=== PATIENT | female | born 1940 | race Caucasian/White ===

== ENCOUNTER 2019-06-11 14:29 | Inpatient (IN) | payer BC, OTHER ==
[~2019-06-11] VITALS: Ht 152.4 cm; Wt 567.0 kg
[2019-06-11 15:19] LABS: BASO # 0.1 x10^3/uL (0.0-0.2); BASO % 1 % (0-3); EOS # 0.1 x10^3/uL (0.0-0.7); EOS % 2 % (0-3); HEMATOCRIT 42.1 % (36.0-47.0); HEMOGLOBIN 13.8 g/dL (12.0-15.5); LYMPH # 1.3 x10^3/uL (1.0-4.8); LYMPH % 17 % (24-48); MEAN CORPUSCULAR HEMOGLOBIN 28 pg (25-35); MEAN CORPUSCULAR HGB CONC 33 g/dL (31-37); MEAN CORPUSCULAR VOLUME 87 fL (79-100); MONO # 0.7 x10^3/uL (0.0-1.1); MONO % 9 % (0-9); NEUT # 5.3 x10^3uL (1.8-7.7); NEUT % 71 % (31-73); PLATELET COUNT 204 x10^3/uL (140-400); RED BLOOD COUNT 4.86 x10^6/uL (3.50-5.40); RED CELL DISTRIBUTION WIDTH 14.8 % (11.5-14.5); WHITE BLOOD COUNT 7.4 x10^3/uL (4.0-11.0)
[2019-06-11 15:20] LABS: CALCIUM 9.4 mg/dL (8.5-10.1); GFR 53.5; POTASSIUM 4.4 mmol/L (3.5-5.1)
[2019-06-11 15:26] LABS: ALBUMIN 3.8 g/dL (3.4-5.0); ALBUMIN/GLOBULIN RATIO 1.1 (1.0-1.7); TOTAL BILIRUBIN 0.7 mg/dL (0.2-1.0); TOTAL PROTEIN 7.2 g/dL (6.4-8.2)
--- NOTE | 2019-06-11 16:39 | PHYS DOC ---
Past History Past Medical History: Anxiety, CVA, Dementia, Depression Past Surgical History: No Surgical History Alcohol Use: None Drug Use: None Adult General Chief Complaint Chief Complaint: PSYCH EVALUATION HPI HPI 78-year-old female presents to behavioral health admission. She was brought here by EMS from her assisted living facility. They did not discuss admission with her behavior health department. She has been having increased anxiety, restlessness, depression, suicidal thoughts. This is gone on for the last couple of months, but is much worse the last several days. Family is very concerned that her medications need adjusting. Patient denies any medical complaints to me. Review of Systems Review of Systems Constitutional: Denies fever or chills [] Eyes: Denies change in visual acuity, redness, or eye pain [] HENT: Denies nasal congestion or sore throat [] Respiratory: Denies cough or shortness of breath [] Cardiovascular: No additional information not addressed in HPI [] GI: Denies abdominal pain, nausea, vomiting, bloody stools or diarrhea [] : Denies dysuria or hematuria [] Musculoskeletal: Denies back pain or joint pain [] Integument: Denies rash or skin lesions [] Neurologic: Denies headache, focal weakness or sensory changes [] Endocrine: Denies polyuria or polydipsia [] All other systems were reviewed and found to be within normal limits, except as documented in this note. Allergies Allergies Allergies Coded Allergies Type Severity Reaction Last Updated Verified No Known Drug Allergies 06/11/19 No Physical Exam Physical Exam Constitutional: Well developed, well nourished, no acute distress, non-toxic appearance. [] HENT: Normocephalic, atraumatic, bilateral external ears normal, oropharynx moist, no oral exudates, nose normal. [] Eyes: PERRLA, EOMI, conjunctiva normal, no discharge. [] Neck: Normal range of motion, no tenderness, supple, no stridor. [] Cardiovascular:Heart rate regular rhythm, no murmur [] Lungs & Thorax: Bilateral breath sounds clear to auscultation [] Abdomen: Bowel sounds normal, soft, no tenderness, no masses, no pulsatile masses. [] Skin: Warm, dry, no erythema, no rash. [] Back: No tenderness, no CVA tenderness. [] Extremities: No tenderness, no cyanosis, no clubbing, ROM intact, no edema. [] Neurologic: Alert and oriented X 3, normal motor function, normal sensory function, no focal deficits noted. [] Psychologic: Affect depressed, judgement normal, mood anxious. [] Current Patient Data Vital Signs Vital Signs Date Time Temp Pulse Resp B/P (MAP) Pulse Ox O2 Delivery O2 Flow Rate FiO2 06/11/19 14:58 98.3 87 16 95 Room Air 06/11/19 14:48 150/97 (114) Lab Results Laboratory Tests Test 06/11/19 14:56 White Blood Count 7.4 x10^3/uL (4.0-11.0) Red Blood Count 4.86 x10^6/uL (3.50-5.40) Hemoglobin 13.8 g/dL (12.0-15.5) Hematocrit 42.1 % (36.0-47.0) Mean Corpuscular Volume 87 fL (79-100) Mean Corpuscular Hemoglobin 28 pg (25-35) Mean Corpuscular Hemoglobin Concent 33 g/dL (31-37) Red Cell Distribution Width 14.8 % (11.5-14.5) H Platelet Count 204 x10^3/uL (140-400) Neutrophils (%) (Auto) 71 % (31-73) Lymphocytes (%) (Auto) 17 % (24-48) L Monocytes (%) (Auto) 9 % (0-9) Eosinophils (%) (Auto) 2 % (0-3) Basophils (%) (Auto) 1 % (0-3) Neutrophils # (Auto) 5.3 x10^3uL (1.8-7.7) Lymphocytes # (Auto) 1.3 x10^3/uL (1.0-4.8) Monocytes # (Auto) 0.7 x10^3/uL (0.0-1.1) Eosinophils # (Auto) 0.1 x10^3/uL (0.0-0.7) Basophils # (Auto) 0.1 x10^3/uL (0.0-0.2) Sodium Level 142 mmol/L (136-145) Potassium Level 4.4 mmol/L (3.5-5.1) Chloride Level 106 mmol/L (98-107) Carbon Dioxide Level 28 mmol/L (21-32) Anion Gap 8 (6-14) Blood Urea Nitrogen 15 mg/dL (7-20) Creatinine 1.0 mg/dL (0.6-1.0) Estimated GFR (Cockcroft-Gault) 53.5 BUN/Creatinine Ratio 15 (6-20) Glucose Level 87 mg/dL (70-99) Calcium Level 9.4 mg/dL (8.5-10.1) Magnesium Level 2.0 mg/dL (1.8-2.4) Total Bilirubin 0.7 mg/dL (0.2-1.0) Aspartate Amino Transferase (AST) 16 U/L (15-37) Alanine Aminotransferase (ALT) 18 U/L (14-59) Alkaline Phosphatase 98 U/L (46-116) Total Protein 7.2 g/dL (6.4-8.2) Albumin 3.8 g/dL (3.4-5.0) Albumin/Globulin Ratio 1.1 (1.0-1.7) EKG EKG [] Radiology/Procedures Radiology/Procedures [] Course & Med Decision Making Course & Med Decision Making Pertinent Labs and Imaging studies reviewed. (See chart for details) The patient is medically stable for behavioral health admission. It took some time to ascertain whether or not the patient could stay at this facility due to insurance. Family seems content with this solution presented by the administrative staff. She will be admitted to our behavioral health floor. [] Dragon Disclaimer Dragon Disclaimer This electronic medical record was generated, in whole or in part, using a voice recognition dictation system. Departure Departure: Impression: Primary Impression: Medical clearance for psychiatric admission Additional Impression: Suicidal ideation Disposition: ADMITTED INPATIENT Condition: STABLE Referrals: EL MARKS (PCP) Problem Qualifiers ARMIDA CARL DO Jun 11, 2019 16:39
[2019-06-11] MEDS ORDERED: LORazepam 1 MG TABLET PO ONE (17:30)
--- NOTE | 2019-06-11 20:00 | NUR ---
Admission Note with Justification for Admission to [facility] Patient admitted to [facility] for protective oversight for emergency stabilization of acute psychiatric crisis. Pt admitted from: Hospital ER Mode of arrival: EMS Accompanied By: EMS Precipitating behaviors that initiated intake and admission: Pt attempted to throw herself down a flight of stairs. Previously attempted to jump from moving car on 05/29/19. Screaming for help, labile, impulsive, tearful, anxiety. Description of failure of out patient attempts at stabilization in previous setting list behavior and medication trials: 1:1 Behaviors and assessment findings upon admission: Pt was A&OX4, pleasant and fully cooperative, denies SI at this time but admits to today's episode, denies prev SI attempt. Plan: Admit for protective oversight for adjustment and stabilization of medications, behaviors and mood. Intense treatment regimen including groups, medication adjustments, therapy, consistent regimen for ADL's, self care, and sleep hygiene. Daily monitoring by Inpatient staff, Psychiatry, and Medical Physician.
[2019-06-11 20:31] VITALS: BP 146/83
--- NOTE | 2019-06-11 21:00 | PDOC ---
Exam Note: Zelalem Note: Please also refer to the separate dictated note~for this date of service dictated separately. Discussed the patient with Nursing staff reviewed the chart.~Reviewed interim history and current functioning. Reviewed vital signs,~Labs/ Radiology~and current medications noted below. Continue current treatment with the changes noted in the dictated addendum note Assessment: Vital Signs/I&O: Vital Signs Date Time Temp Pulse Resp B/P (MAP) Pulse Ox O2 Delivery O2 Flow Rate FiO2 06/11/19 20:31 97.8 83 20 146/83 (104) 97 06/11/19 19:46 Room Air Labs: Laboratory Tests Test 06/11/19 14:56 White Blood Count 7.4 x10^3/uL (4.0-11.0) Red Blood Count 4.86 x10^6/uL (3.50-5.40) Hemoglobin 13.8 g/dL (12.0-15.5) Hematocrit 42.1 % (36.0-47.0) Mean Corpuscular Volume 87 fL (79-100) Mean Corpuscular Hemoglobin 28 pg (25-35) Mean Corpuscular Hemoglobin Concent 33 g/dL (31-37) Red Cell Distribution Width 14.8 % (11.5-14.5) H Platelet Count 204 x10^3/uL (140-400) Neutrophils (%) (Auto) 71 % (31-73) Lymphocytes (%) (Auto) 17 % (24-48) L Monocytes (%) (Auto) 9 % (0-9) Eosinophils (%) (Auto) 2 % (0-3) Basophils (%) (Auto) 1 % (0-3) Neutrophils # (Auto) 5.3 x10^3uL (1.8-7.7) Lymphocytes # (Auto) 1.3 x10^3/uL (1.0-4.8) Monocytes # (Auto) 0.7 x10^3/uL (0.0-1.1) Eosinophils # (Auto) 0.1 x10^3/uL (0.0-0.7) Basophils # (Auto) 0.1 x10^3/uL (0.0-0.2) Sodium Level 142 mmol/L (136-145) Potassium Level 4.4 mmol/L (3.5-5.1) Chloride Level 106 mmol/L (98-107) Carbon Dioxide Level 28 mmol/L (21-32) Anion Gap 8 (6-14) Blood Urea Nitrogen 15 mg/dL (7-20) Creatinine 1.0 mg/dL (0.6-1.0) Estimated GFR (Cockcroft-Gault) 53.5 BUN/Creatinine Ratio 15 (6-20) Glucose Level 87 mg/dL (70-99) Calcium Level 9.4 mg/dL (8.5-10.1) Magnesium Level 2.0 mg/dL (1.8-2.4) Total Bilirubin 0.7 mg/dL (0.2-1.0) Aspartate Amino Transferase (AST) 16 U/L (15-37) Alanine Aminotransferase (ALT) 18 U/L (14-59) Alkaline Phosphatase 98 U/L (46-116) Total Protein 7.2 g/dL (6.4-8.2) Albumin 3.8 g/dL (3.4-5.0) Albumin/Globulin Ratio 1.1 (1.0-1.7) Current Medications: Meds: Current Medications Medications (Trade) Dose Ordered Sig/Pete Route PRN Reason Start Time Stop Time Status Last Admin Dose Admin Lorazepam (Ativan) 1 mg 1X ONCE PO 06/11/19 17:30 06/11/19 17:31 DC 06/11/19 17:35 I have reviewed the current psychotropics carefully including drug interactions. Risk benefit ratio favors no change other than as noted in my dictated progress note. Diagnosis: Problems: (1) Suicidal ideation (2) Medical clearance for psychiatric admission JESSICA BRANCH MD Jun 11, 2019 21:00
[2019-06-11] MEDS ORDERED: CHOL200027 PO (21:08)
[2019-06-11] MEDS ORDERED: BUSP10TA PO (21:08)
[2019-06-11] MEDS ORDERED: BUSP15TA PO (21:08)
[2019-06-11] MEDS ORDERED: ATOR20TA58 PO (21:08)
[2019-06-11] MEDS ORDERED: CALC600T23 PO (21:08)
[2019-06-11] MEDS ORDERED: APIX5TAB3 PO (21:08)
[2019-06-11] MEDS ORDERED: CALC500T13 PO (21:08)
[2019-06-11] MEDS ORDERED: BUSP5TAB PO (21:08)
[2019-06-11] MEDS ORDERED: LOSA50TA86 PO (21:08)
[2019-06-11] MEDS ORDERED: ASPI-612 PO (21:08)
[2019-06-11] MEDS ORDERED: QUET25TA5 PO (21:08)
[2019-06-11] MEDS ORDERED: HYDR-2155 PO (21:08)
[2019-06-11] MEDS ORDERED: ACET325T9 PO (21:08)
[2019-06-11] MEDS ORDERED: OMEG-117 PO (21:08)
[2019-06-11] MEDS ORDERED: METHYL SALICYLATE/MENTHOL TOPICAL OINTMENT 57GM TUBE. TP PRN (21:15)
[2019-06-11] MEDS ORDERED: MAG HYDROX/AL HYDROX/SIMETH 30 ML ORAL.SUSP PO PRN (21:15)
[2019-06-11] MEDS ORDERED: ACETAMINOPHEN 325 MG TABLET PO PRN ×2 (21:15)
[2019-06-11] MEDS ORDERED: MAGNESIUM HYDROXIDE 2,400 MG/30 ML ORAL.SUSP. PO PRN (21:15)
[2019-06-11] MEDS ORDERED: HYDROcodone/APAP 5/325MG 1 TAB TABLET PO PRN (21:15)
--- NOTE | 2019-06-12 00:53 | EKG ---
[address] [address] Test Date: 2019-06-11 Test Time: 14:42:21 Pat Name: PATTI HERNANDEZ Department: Room: Gender: F Toy Department Manager: : 1940 Requested By: ARMIDA CARL Order Number: [id number] Reading MD: Measurements Intervals [place] Rate: 75 P: 90 CT: 158 QRS: 25 QRSD: 76 T: 16 QT: 388 QTc: 436 Interpretive Statements SINUS RHYTHM QRS(T) CONTOUR ABNORMALITY CONSIDER ANTEROSEPTAL MYOCARDIAL DAMAGE POSSIBLY ABNORMAL ECG RI6.01 No previous ECG available for comparison
[2019-06-12 05:58] VITALS: BP 109/67
[2019-06-12] MEDS: ASPIRIN ENTERIC COATED 81 MG TABLET.DR. PO SCH (08:02)
[2019-06-12] MEDS: busPIRone 10 MG TABLET. PO SCH ×2 (08:02→19:33)
[2019-06-12] MEDS: LOSARTAN 50 MG TABLET. PO SCH (08:02)
[2019-06-12] MEDS: CALCIUM CARBONATE 500 MG TABLET PO SCH ×2 (08:03→19:34)
[2019-06-12] MEDS: OMEGA-3 FATTY ACIDS/FISH OIL 1,000 MG CAPSULE. PO SCH (08:03)
[2019-06-12] MEDS: APIXABAN 5 MG TABLET. PO SCH ×2 (08:03→19:33)
[2019-06-12] MEDS ORDERED: CHOLECALCIFEROL 3000 UNIT PO SCH (09:00)
[2019-06-12] MEDS ORDERED: busPIRone 10 MG TABLET. PO SCH (09:00)
--- NOTE | 2019-06-12 09:48 | NUR ---
Patient was in the dining room during morning rounding, took medications whole, allowed for morning assessment. Patient did ask what each of her medications were but took them whole. No agitation noted, pt denies pain. Patient is hyperverbal with interactions. Will continue to monitor.
--- NOTE | 2019-06-12 13:30 | NUR ---
Social work student (ALLI) was offering jigsaw puzzles to another patient when this patient said, "Are those puzzles?" This pt had been working quietly on a word search when she noticed the puzzles. ALLI and this pt moved to a table where the pt could work on the puzzle. She was very focused on finding the edge pieces and worked intently. She said that she used to have a card table at home where there was always a puzzle. She said that she had fallen out of the habit for a while. ALLI will follow up with pt on .
--- NOTE | 2019-06-12 15:29 | NUR ---
Pt. observed having two strange behaviors during afternoon group. See 1:1 note for details. Addendum: 06/12/19 at 1530 by SMITA LIM ACT Amended: Links added.
[2019-06-12 15:43] VITALS: BP 162/88
[2019-06-12 15:52] LABS: BILIRUBIN,URINE NEG (NEG); COLOR,URINE YELLOW; GLUCOSE,URINE NEG (NEG)
[2019-06-12 15:53] LABS: BACTERIA,URINE 0 /HPF (0-FEW); NITRITE,URINE NEG (NEG); SQUAMOUS EPITHELIAL CELL,UR FEW /LPF; WBC,URINE 20-40 /HPF (0-4)
[2019-06-12 15:54] LABS: CLARITY,URINE CLOUDY
[2019-06-12] MEDS: busPIRone 5 MG TABLET. PO PRN (16:52)
--- NOTE | 2019-06-12 17:04 | NUR ---
Patient was outside the nurses station shouting "I want my bed made." Patient was picking up her walker and slamming it on the ground." When staff went to calm her down she said "I'm scared." JASSIN sajan given @1652. Pt is headed to dinner, will continue to monitor.
[2019-06-12 17:07] LABS: THYROXINE 7.1 ug/dL (4.5-12.0)
[2019-06-12] MEDS: ATORVASTATIN CALCIUM 20 MG TABLET PO SCH (19:33)
[2019-06-12] MEDS: QUEtiapine 25 MG TABLET. PO SCH (19:34)
[2019-06-12] MEDS: CHOLECALCIFEROL (VITAMIN D3) 1,000 UNIT TABLET PO SCH (19:34)
[2019-06-12 20:06] LABS: THYROID STIM HORMONE (TSH) 1.244 uIU/mL (0.358-3.740)
--- NOTE | 2019-06-12 20:50 | NUR ---
Nursing note: Assumed care of pt in the day room where she had become anxious, hyper-verbal, confused, and was yelling. I attempted to administer her meds but she was suspicious of me, didn't remember any staff from the previous night. She had the med cup in her hand but was not wanting to put them in her mouth. When I tried to take the med cup back she jerked away and tightened her hand around the pills, spilling water in both our laps. She started yelling like a little child and saying "I'm scared." I gave her the option of taking the meds whole or sub-lingually. She agreed to take the meds whole and I said she could go to bed afterwards. She is still asking to have her bed made. I straightened her bed for her.
--- NOTE | 2019-06-12 20:53 | PDOC ---
Exam Note: Zelalem Note: Please also refer to the separate dictated note~for this date of service dictated separately.~Patient seen individually. Discussed the patient with Nursing staff reviewed the chart.~Reviewed interim history and current functioning. Reviewed vital signs,~Labs/ Radiology~and current medications noted below. Continue current treatment with the changes noted in the dictated addendum note Assessment: Vital Signs/I&O: Vital Signs Date Time Temp Pulse Resp B/P (MAP) Pulse Ox O2 Delivery O2 Flow Rate FiO2 06/12/19 15:43 98.0 83 18 162/88 (112) 98 Room Air I & O 06/11/19 06/11/19 06/12/19 15:00 23:00 07:00 Intake Total 480 ml Balance 480 ml Labs: Laboratory Tests Test 06/12/19 15:35 Urine Collection Type Unknown Urine Color Yellow Urine Clarity Cloudy Urine pH 6.0 Urine Specific [place] >=1.030 Urine Protein Trace (NEG-TRACE) Urine Glucose (UA) Neg mg/dL (NEG) Urine Ketones (Stick) Neg mg/dL (NEG) Urine Blood Trace (NEG) Urine Nitrite Neg (NEG) Urine Bilirubin Neg (NEG) Urine Urobilinogen Dipstick 1.0 mg/dL (0.2 mg/dL) Urine Leukocyte Esterase Small (NEG) Urine RBC 3-5 /HPF (0-2) Urine WBC 20-40 /HPF (0-4) Urine Squamous Epithelial Cells Few /LPF Urine Bacteria 0 /HPF (0-FEW) Urine Mucus Marked /LPF Current Medications: Meds: Current Medications Medications (Trade) Dose Ordered Sig/Pete Route PRN Reason Start Time Stop Time Status Last Admin Dose Admin Buspirone HCl (Buspar) 5 mg PRN TID PRN PO ANXIETY 06/11/19 21:15 06/12/19 16:52 Buspirone HCl (Buspar) 25 mg BID PO 06/12/19 09:00 06/12/19 19:33 Quetiapine Fumarate (SEROquel) 25 mg HS PO 06/12/19 21:00 06/12/19 19:34 Acetaminophen (Tylenol) 650 mg PRN Q4HRS PRN PO PAIN 06/11/19 21:15 06/12/19 00:14 Apixaban (Eliquis) 5 mg BID PO 06/12/19 09:00 06/12/19 19:33 Aspirin (Aspirin Enteric Coated) 81 mg DAILY PO 06/12/19 09:00 06/12/19 08:02 Atorvastatin Calcium (Lipitor) 20 mg QHS PO 06/12/19 21:00 06/12/19 19:33 Calcium Carbonate/ Glycine (Oscal) 500 mg HS PO 06/12/19 21:00 06/12/19 19:34 Losartan Potassium (Cozaar) 50 mg DAILY PO 06/12/19 09:00 06/12/19 08:02 Calcium Carbonate/ Glycine (Oscal) 500 mg DAILY PO 06/12/19 09:00 06/12/19 08:03 Fish Oil (Fish Oil) 1,000 mg DAILY PO 06/12/19 09:00 06/12/19 08:03 Vitamin D (Vitamin D3) 3,000 unit BID PO 06/12/19 21:00 06/12/19 19:34 I have reviewed the current psychotropics carefully including drug interactions. Risk benefit ratio favors no change other than as noted in my dictated progress note. Diagnosis: Problems: (1) Suicidal ideation (2) Medical clearance for psychiatric admission (3) Anxiety disorder (4) Major depressive disorder, recurrent episode (5) Impulse control disorder (6) Panic disorder with agoraphobia and severe panic attacks JESSICA BRANCH MD Jun 12, 2019 20:53
[2019-06-13 00:06] LABS: HEMOGLOBIN A1C 5.3 % (4.8-5.6)
[2019-06-13] MEDS: busPIRone 5 MG TABLET. PO PRN (00:45)
--- NOTE | 2019-06-13 00:54 | NUR ---
Nursing note: Pt awake and anxious, confused, sitting on edge of bed rocking back and forth. Gave prn buspar and hydrocodone as ordered.
--- NOTE | 2019-06-13 02:18 | CONS ---
DATE OF CONSULTATION: 06/12/2019 REASON FOR CONSULTATION: Medical management. HISTORY OF PRESENT ILLNESS: The patient is a 78-year-old female patient, a resident at [facility], who was admitted to [facility] via Emergency Room on account of suicidal attempts, attempted to throw herself downstairs and on 05/29/2019, she tried to jump from moving car. She has increased activity outburst, tearful, labile, screaming for help, all this in a background of major depressive disorder. PAST MEDICAL HISTORY: Significant for hyperlipidemia and traumatic brain injury, CVA, breast cancer. PAST SURGICAL HISTORY: Significant for right-sided mastectomy. ALLERGIES: She has no known drug allergies. MEDICATIONS: She is currently on following medications: She is on apixaban 5 mg twice a day, atorvastatin calcium 20 mg at bedtime, omega-3 fatty acid 1200 mg subcutaneous once a day, losartan potassium 50 mg daily, aspirin 81 mg once a day, hydrocodone/APAP 5/325 one tablet every 4 hours as needed, Tylenol 650 mg every 4 hours, quetiapine fumarate 25 mg at bedtime, Wellbutrin 10 mg twice a day, calcium carbonate 600 mg once a day, oyster shell calcium 500 mg at bedtime, cholecalciferol, vitamin D 3000 units p.o. b.i.d. FAMILY HISTORY: Noncontributory. SOCIAL HISTORY: She is currently at [facility]. She apparently does not smoke, drink alcohol or use recreational drugs. She walks with a walker. PHYSICAL EXAMINATION: GENERAL: When I examined her this morning, she was sitting comfortably in her chair, in no apparent respiratory distress, pale, somewhat cachectic, but no jaundice or cyanosis. No lymphadenopathy, no thyromegaly. No jugular venous distention. No limb edema. VITAL SIGNS: Her heart rate was 83, blood pressure was 160/88, temperature 98, respiratory rate was 18 and oxygen saturation was 98% on room air. HEAD, EYES, NOSE AND THROAT: Showed normocephalic, atraumatic. NECK: Supple. HEART: Showed normal first and second heart sounds. No gallop or murmur. CHEST: Clear to auscultation. No crepitation or rhonchi. ABDOMEN: Scaphoid, soft, nontender. NEUROLOGIC: She was confused, but without any obvious lateralizing sign. All her cranial nerves intact. EXTREMITIES: She moves extremities without difficulty. She ambulates with a walker. LABORATORY DATA: Showed white cell count 7400, hemoglobin 14, hematocrit 42, MCV 87 and platelet count 204,000. Her chemistry showed a serum sodium of 142, potassium 4.4, chloride 106, bicarbonate 28, anion gap of 8, BUN 15, creatinine 1, estimated GFR was 53 mL per minute. Her glucose was 87, calcium was 9.4, magnesium 2. Total bilirubin, AST, ALT, alkaline phosphatase were normal. Total protein was 7.2, albumin was 3.8. IMPRESSION: In summary, this is a 78-year-old female patient, a resident of [facility], who was admitted to the Emergency Room to [facility] on account of attempting to throw herself downstairs and on 05/29/2019, she tried to jump from the moving car. She has increased anxiety outbursts, tearful, labile, screaming for help, all this in a background of major depressive disorder. Medically, she has hyperlipidemia, traumatic brain injury, CVA and breast cancer with right sided mastectomy. The patient seems to be generally very stable medically. All her vital signs are within acceptable range. All her lab works are also within normal range. I will obviously follow all her labs are still pending at the time of this dictation and make any necessary recommendation. Thank you, Dr. Alvarado for allowing me to participate. ALYSIA LANDEROS MD DR: LEONARDO/rm JOB#: [id number] / [id number]
[2019-06-13 05:45] VITALS: BP 147/70
[2019-06-13] MEDS: busPIRone 10 MG TABLET. PO SCH (08:46)
[2019-06-13] MEDS: LOSARTAN 50 MG TABLET. PO SCH (08:47)
[2019-06-13] MEDS: CHOLECALCIFEROL (VITAMIN D3) 1,000 UNIT TABLET PO SCH ×2 (08:47→20:10)
[2019-06-13] MEDS: APIXABAN 5 MG TABLET. PO SCH ×2 (08:47→20:10)
[2019-06-13] MEDS: CALCIUM CARBONATE 500 MG TABLET PO SCH ×2 (08:47→20:10)
[2019-06-13] MEDS: OMEGA-3 FATTY ACIDS/FISH OIL 1,000 MG CAPSULE. PO SCH (08:47)
[2019-06-13] MEDS: ASPIRIN ENTERIC COATED 81 MG TABLET.DR. PO SCH (08:47)
--- NOTE | 2019-06-13 12:02 | HP ---
ADMIT DATE: 06/12/2019 IDENTIFYING DATA: The patient is a 78-year-old female referred to us from [facility] on account of worsening symptoms of depression and anxiety. Reportedly on 06/11/2019, she had a suicide attempt and attempted to throw herself down the stairs. On 05/29/2019, she tried to jump from a moving car. She has had increasing mood lability outbursts, has been tearful, labile, screaming for help, paranoid, psychotic and has failed outpatient psychiatric interventions. Her behaviors have been dangerous at the facility, unmanageable, and referred for inpatient psychiatric stabilization. CHIEF COMPLAINT: "Yes, I have a lot of anxiety. I get depressed." HISTORY OF PRESENT ILLNESS: I met with the patient in the evening of 06/12/2019 for this evaluation and previously on 06/11/2019. I discussed with Joann Goddard and nursing staff. The patient has been residing at [facility] for some time, but recently getting more depressed, anxious, obsessive, ruminating about things, repetitive with marked mood lability. Outpatient interventions at the facility with Dr. Jane Lipscomb, had failed despite being on BuSpar 25 mg b.i.d., Seroquel 25 mg at bedtime. No active homicidal ideation at the time of admission and she denied active suicidal ideation when I met her the evening of 06/12/2019. Cognitively, she has been reasonably intact. PAST PSYCHIATRIC HISTORY: As noted above. PAST MEDICAL HISTORY: Positive for hyperlipidemia, status post traumatic brain injury, status post CVA in 03/2018, history of CA breast with right-sided mastectomy. ACCU-CHEKS: None. DIET: Regular. Takes medications whole. Ambulates with walker. UA on 06/12/2019 was culture pending. DRUG ALLERGIES: Negative. CODE STATUS: Full code. CURRENT PSYCHOTROPICS: BuSpar 25 mg b.i.d., Seroquel 25 mg at bedtime. FAMILY HISTORY: Noncontributory. SOCIAL HISTORY: No history of alcohol, drug abuse, physical, sexual or elder abuse. She is not known to be a perpetrator. REACTION TO HOSPITALIZATION: The patient accepting of this. ASSETS: Supportive living at the above facility, supportive family. MENTAL STATUS EXAMINATION: The patient was seen individually in the evening of 06/12/2019. She is oriented reasonably to herself and situation. Speech is coherent, abstraction fair, computation impaired, language function intact, attention span short. Mood and affect remains depressed, but very anxious, quite labile, obsessive, repetitive, as I met with her at length. No active suicidal or homicidal ideation. IMPRESSION: Major depressive disorder, recurrent, severe with suicidal ideation; anxiety disorder, unspecified; rule out obsessive compulsive disorder, rule out bipolar disorder, unspecified. Rest as above. PLAN: Admit to geropsychiatry unit at [facility]. I will see the patient daily individually from a psychiatric standpoint. Medical follow up per Dr. Torres. Continue the patient on her current psychotropics, but we will consider stopping the BuSpar, since this has been ineffective and consider addition of Luvox for her OCD and adjustment of Seroquel for her mood stabilization and consideration of Depakote if bipolar disorder history is quite clear. We will make decisions post baseline assessment. ESTIMATED LENGTH OF STAY: 10-12 days. DISPOSITION: Plans back to [facility] once she is clinically stable. JESSICA BRANCH MD DR: HAYDEN/rm JOB#: [id number] / [id number]
--- NOTE | 2019-06-13 14:46 | NUR ---
Patient was alert, disorganized, anxious, and attention seeking at shift change. She was hyperverbal at breakfast, talking to herself and peers constantly. She requested several drinks, but did not finish any of them and left a few untouched. Patient has been emotionally labile, bursting into tears in the middle of a sentence, then continuing as if nothing had happened. Patient required repeated instructions and reinforcement to take her morning medications, she would say 'ok' after being instructed to take her medications and then continue talking. She held her medications in her hand for over 20minutes. She was withdrawn to her room after breakfast, then was cooperative with therapy. After therapy, she sat in [facility] day room and worked on jigsaw puzzles with activity therapy. At lunch and afterwards she has continually ask when her next medication is due. She was minimally participatory in after lunch group and has put herself to bed. Will continue to monitor.
[2019-06-13 15:22] VITALS: BP 174/84
[2019-06-13] MEDS: QUEtiapine 25 MG TABLET. PO SCH ×2 (16:53→20:11)
[2019-06-13] MEDS: ATORVASTATIN CALCIUM 20 MG TABLET PO SCH (20:10)
--- NOTE | 2019-06-13 21:00 | PDOC ---
Exam Note: Zelalem Note: Please also refer to the separate dictated note~for this date of service dictated separately.~Patient seen individually. Discussed the patient with Nursing staff reviewed the chart.~Reviewed interim history and current functioning. Reviewed vital signs,~Labs/ Radiology~and current medications noted below. Continue current treatment with the changes noted in the dictated addendum note Assessment: Vital Signs/I&O: Vital Signs Date Time Temp Pulse Resp B/P (MAP) Pulse Ox O2 Delivery O2 Flow Rate FiO2 06/13/19 15:22 97.5 85 21 174/84 (114) 96 Room Air I & O 06/12/19 06/12/19 06/13/19 15:00 23:00 07:00 Intake Total 480 ml 600 ml Balance 480 ml 600 ml Current Medications: Meds: Current Medications Medications (Trade) Dose Ordered Sig/Pete Route PRN Reason Start Time Stop Time Status Last Admin Dose Admin Quetiapine Fumarate (SEROquel) 12.5 mg 0900,1700 PO 06/13/19 17:00 06/13/19 16:53 Fluvoxamine Maleate (Luvox) 25 mg DAILY PO 06/13/19 09:30 06/15/19 23:50 06/13/19 09:44 I have reviewed the current psychotropics carefully including drug interactions. Risk benefit ratio favors no change other than as noted in my dictated progress note. Diagnosis: Problems: (1) Suicidal ideation (2) Medical clearance for psychiatric admission (3) Anxiety disorder (4) Major depressive disorder, recurrent episode (5) Impulse control disorder (6) Panic disorder with agoraphobia and severe panic attacks JESSICA BRANCH MD Jun 13, 2019 21:00
--- NOTE | 2019-06-14 03:01 | NUR ---
At shift change pt was in her bed quiet and awake. When meds were given she was pleasant and cooperative and took them whole without difficulty. She was social with staff and answered questions appropriately with a somewhat delayed response. Before her shower she said she could not stand or walk then after shower she was able to move around well and put herself into bed and has been sleeping well tonight.
[2019-06-14 05:43] VITALS: BP 175/72
[2019-06-14] MEDS: CALCIUM CARBONATE 500 MG TABLET PO SCH ×2 (08:02→20:54)
[2019-06-14] MEDS: ASPIRIN ENTERIC COATED 81 MG TABLET.DR. PO SCH (08:02)
[2019-06-14] MEDS: APIXABAN 5 MG TABLET. PO SCH ×2 (08:02→20:54)
[2019-06-14] MEDS: QUEtiapine 25 MG TABLET. PO SCH ×3 (08:03→20:54)
[2019-06-14] MEDS: OMEGA-3 FATTY ACIDS/FISH OIL 1,000 MG CAPSULE. PO SCH (08:03)
[2019-06-14] MEDS: LOSARTAN 50 MG TABLET. PO SCH (08:03)
[2019-06-14] MEDS: CHOLECALCIFEROL (VITAMIN D3) 1,000 UNIT TABLET PO SCH (08:04)
--- NOTE | 2019-06-14 09:14 | NUR ---
Activity Therapy Assessment Completed based on observation, interview, and notes. Therapist walked with Pt. down to the day room after breakfast. Pt. uses a walker to ambulate, speaks in full clear sentences most of the time, and can express her needs clearly. Pt. needs frequent reassurance, reminders, and prompting to complete tasks. Pt. mood is labile, crying one moment, talking cheerfully the next, and then stating 'I'm scared' repeatedly. Pt. has had two observable instances of staring off and being unresponsive- see 1:1 note for more detail. While walking to group, Pt. was able to tell therapist that she travelled often with her and had two children. She had trouble recalling her children's names, only remembering Ashlyn after a few moments of thinking. Pt. needs time to process directions and choices. Pt. also told therapist she lived in an apartment but could not recall the city. While on the unit, Pt. has enjoyed jigsaw puzzles, trivia, some exercises, and some group activities. Pt. at times seems self-aware of her reason for admission ("I don't know what's wrong with me. I don't want to be like this forever. I don't want to be crazy") and other times forgets what she is doing or where she is in the middle of a task. Pt. responds well to repetition and calm demeanors. Initial goal aimed to increase stress management skills: Pt. will participate in all relaxation activities offered.
--- NOTE | 2019-06-14 11:15 | NUR ---
SW called . which was provided by the copy on pt card. After giving pt information, SW was told that pt is not in network for them and had SW contact . SW contacted that number and was told that pt is not covered through them and SW would have to contact a different number. SW contacted . SW gave all information to the event marketing representative and the [employer] event marketing representative asked SW to complete the Prior Authorization form online through [employer] as it is an easier process for the team to review versus an online completion. SW attempted to complete the form. It was stated that a time limit was set on the top of the form. However, pt information into the form was reset 30 minutes into filling out the form. SW will attempt to complete the online form and have it submitted ESTHER.
--- NOTE | 2019-06-14 12:10 | NUR ---
SW left a message for pt dtr, Ashlyn, to contact SW when possible to discuss pt care.
--- NOTE | 2019-06-14 12:45 | NUR ---
Patient repeatedly saying 'I'm doomed' and is displaying increased anxiety; prn medications provided per eMAR.
[2019-06-14 15:41] VITALS: BP 117/71
--- NOTE | 2019-06-14 15:59 | NUR ---
Patient was alert, disorganized, anxious, and attention seeking at shift change. She was hyperverbal at breakfast, talking to herself almost constantly as she was the only one at her table. Patient has been emotionally labile, bursting into tears in the middle of a sentence, adn very anxious, repeatedly stating that she will be 'a good girl'. Patient required repeated instructions and reinforcement to take her morning medications. She was withdrawn to her room after breakfast; after lunch she was minimally participatory in 's after lunch group and has put herself to bed afterwords. Will continue to monitor.
[2019-06-14] MEDS ORDERED: CHOLECALCIFEROL (VITAMIN D3) 1,000 UNIT TABLET PO SCH (18:45)
[2019-06-14] MEDS: ATORVASTATIN CALCIUM 20 MG TABLET PO SCH (20:54)
--- NOTE | 2019-06-14 21:01 | PDOC ---
Exam Note: Zelalem Note: Please also refer to the separate dictated note~for this date of service dictated separately.~Patient seen individually. Discussed the patient with Nursing staff reviewed the chart.~Reviewed interim history and current functioning. Reviewed vital signs,~Labs/ Radiology~and current medications noted below. Continue current treatment with the changes noted in the dictated addendum note Assessment: Vital Signs/I&O: Vital Signs Date Time Temp Pulse Resp B/P (MAP) Pulse Ox O2 Delivery O2 Flow Rate FiO2 06/14/19 15:41 97.8 77 16 117/71 (86) 97 06/13/19 15:22 Room Air I & O 06/13/19 06/13/19 06/14/19 15:00 23:00 07:00 Intake Total 720 ml Balance 720 ml Current Medications: I have reviewed the current psychotropics carefully including drug interactions. Risk benefit ratio favors no change other than as noted in my dictated progress note. Diagnosis: Problems: (1) Suicidal ideation (2) Medical clearance for psychiatric admission (3) Anxiety disorder (4) Major depressive disorder, recurrent episode (5) Impulse control disorder (6) Panic disorder with agoraphobia and severe panic attacks JESSICA BRANCH MD Jun 14, 2019 21:01
--- NOTE | 2019-06-14 23:04 | PN ---
DATE: 06/13/2019 PSYCHIATRIC PROGRESS NOTE This late entry 06/13/2019 covers elements not covered in my initial note. SUBJECTIVE: I met with the patient evening of 06/13/2019 and staffed at a treatment team meeting with the entire team. Reviewed the patient's history and information from [facility]. Sleeping about 4 hours average. Appetite is 50%. Activity therapy staff wondered whether she had a seizure-like episode consistent with an absence seizure in one of the groups. We will consult Dr. Cox, Neurology for clarification. She has been anxious, but less so than before. Somewhat ruminative, repetitive with some ongoing mood lability, intermittent agitation and obsessive. REVIEW OF SYSTEMS: Ambulation impaired with walker. No CV, , pulmonary, eye system symptoms on review. MENTAL STATUS EXAM: Oriented reasonably. Speech is coherent, pleasant, smiling. Abstraction fair, computation impaired, language function intact, attention span short. Mood and affect, anxious, labile and somewhat obsessive. LABORATORY DATA: Reviewed. IMPRESSION: Major depressive disorder, recurrent; obsessive-compulsive disorder; anxiety disorder, unspecified; mild cognitive impairment. PLAN: Start Zyprexa p.r.n. after nursing staff called me as an emergency due to her restlessness, agitation and we will start Zyprexa 2.5 mg q. 2 hours p.r.n. psychosis, agitation, max 7.5 mg in 24 hours. Stop the BuSpar 25 b.i.d. Start Luvox 25 mg a day for 3 days, then 50 mg a day. Continue Seroquel 25 mg at bedtime. Start Seroquel 12.5 mg 9 a.m. and 5 p.m. as a mood stabilizer. Make further changes as clinically indicated. MAN Beverley BRANCH MD DR: HAYDEN/rm JOB#: [id number] / [id number]
--- NOTE | 2019-06-14 23:14 | NUR ---
Pt has been in room most of this shift. She took meds whole but required some prompting. She denies SI and has haad no behaviors tonight.
[2019-06-15 05:13] VITALS: BP 121/76
[2019-06-15] MEDS: OMEGA-3 FATTY ACIDS/FISH OIL 1,000 MG CAPSULE. PO SCH (11:34)
[2019-06-15] MEDS: APIXABAN 5 MG TABLET. PO SCH ×2 (11:35→19:50)
[2019-06-15] MEDS: CALCIUM CARBONATE 500 MG TABLET PO SCH ×2 (11:35→19:50)
[2019-06-15] MEDS: LOSARTAN 50 MG TABLET. PO SCH (11:35)
[2019-06-15] MEDS: CHOLECALCIFEROL (VITAMIN D3) 50,000 UNIT CAPSULE PO SCH (11:36)
[2019-06-15] MEDS: QUEtiapine 25 MG TABLET. PO SCH ×3 (11:36→19:50)
[2019-06-15] MEDS: ASPIRIN ENTERIC COATED 81 MG TABLET.DR. PO SCH (11:36)
--- NOTE | 2019-06-15 12:04 | NUR ---
Patient was in bed at shift change and slept through breakfast. She was woken up and assisted into the showers at about 11:00, she was very anxious afterwards stating that 'they were rough with me'. She has less of the repetitive vocalizations and disorganization; she was able to focus on taking her medications and answer questions appropriately. Patient complained of being cold, provided a blanket for her. Will continue to monitor.
[2019-06-15 16:01] VITALS: BP 115/73
[2019-06-15] MEDS: ATORVASTATIN CALCIUM 20 MG TABLET PO SCH (19:50)
--- NOTE | 2019-06-15 21:38 | PDOC ---
Exam Note: Zelalem Note: Please also refer to the separate dictated note~for this date of service dictated separately.~Patient seen individually. Discussed the patient with Nursing staff reviewed the chart.~Reviewed interim history and current functioning. Reviewed vital signs,~Labs/ Radiology~and current medications noted below. Continue current treatment with the changes noted in the dictated addendum note Assessment: Vital Signs/I&O: Vital Signs Date Time Temp Pulse Resp B/P (MAP) Pulse Ox O2 Delivery O2 Flow Rate FiO2 06/15/19 16:01 97.2 92 20 115/73 (87) 98 06/13/19 15:22 Room Air I & O 06/14/19 06/14/19 06/15/19 15:00 23:00 07:00 Intake Total 600 ml 480 ml Balance 600 ml 480 ml Current Medications: Meds: Current Medications Medications (Trade) Dose Ordered Sig/Pete Route PRN Reason Start Time Stop Time Status Last Admin Dose Admin Vitamin D (Vitamin D3) 50,000 unit WEEKLY PO 06/15/19 10:00 06/15/19 11:36 I have reviewed the current psychotropics carefully including drug interactions. Risk benefit ratio favors no change other than as noted in my dictated progress note. Diagnosis: Problems: (1) Suicidal ideation (2) Medical clearance for psychiatric admission (3) Anxiety disorder (4) Major depressive disorder, recurrent episode (5) Impulse control disorder (6) Panic disorder with agoraphobia and severe panic attacks JESSICA BRANCH MD Jun 15, 2019 21:38
--- NOTE | 2019-06-15 22:00 | NUR ---
This evening pt was in day room watching a movie. She was eager to take meds and go to bed. When done with meds she said she was not able to walk to her room, however with her walker and stand by staff she had no difficulty walking. After going to bed she has been sleeping.
[2019-06-16 06:42] VITALS: BP 160/74
[2019-06-16] MEDS: ASPIRIN ENTERIC COATED 81 MG TABLET.DR. PO SCH (08:36)
[2019-06-16] MEDS: CALCIUM CARBONATE 500 MG TABLET PO SCH ×2 (08:36→20:02)
[2019-06-16] MEDS: LOSARTAN 50 MG TABLET. PO SCH (08:36)
[2019-06-16] MEDS: APIXABAN 5 MG TABLET. PO SCH ×2 (08:36→20:01)
[2019-06-16] MEDS: OMEGA-3 FATTY ACIDS/FISH OIL 1,000 MG CAPSULE. PO SCH (08:37)
[2019-06-16] MEDS: QUEtiapine 25 MG TABLET. PO SCH ×3 (08:37→20:02)
--- NOTE | 2019-06-16 14:49 | PN ---
DATE: 06/14/2019 PSYCHIATRIC PROGRESS NOTE This late entry 06/14/2019 covers elements not covered in my initial note. SUBJECTIVE: I met with the patient in the evening of 06/14/2019. Per nursing report, the patient slept 7-1/2 hours previous night. Previous evening, she was slow to respond, somewhat obsessive, anxious, ruminative, thinking about things before she would respond. She has been anxious, repetitive, received Zyprexa at 12:40 p.m. due to anxiety, paranoia. She is repeatedly stating "help me, I am doomed, I am doomed, I am doomed." REVIEW OF SYSTEMS: No CV, , pulmonary, eye system symptoms on review. Reliability fair. MENTAL STATUS EXAMINATION: Oriented to herself and situation. Speech is coherent, repetitive. Abstraction fair. Computation impaired. Language function intact. Attention span short. Mood and affect is labile, anxious. LABORATORY DATA: Reviewed. IMPRESSION: Major depressive disorder, recurrent with possible psychotic features; obsessive-compulsive disorder; anxiety disorder, unspecified. PLAN: The patient is on Luvox 25 mg a day, we will increase to 50 mg a day after 3 days. We have added Seroquel 12.5 mg at 9:00 a.m. and 5:00 p.m., maintain 25 mg at bedtime. Consider changing Seroquel to Risperdal depending on her progress. Dr. Cox has been consulted for Neurology for questionable absence like episodes, though these could well be part of her OCD and ruminative thinking before she responds rather than a seizure episode. We will look for clarification from Dr. Cox. MAN Beverley BRANCH MD DR: HAYDEN/rm JOB#: [id number] / [id number]
[2019-06-16 15:44] VITALS: BP 134/73
--- NOTE | 2019-06-16 16:40 | NUR ---
Patient is alert and oriented to self. Patient has been ambulating on unit using a walker. This morning when RN approached patient, pt stated she was chocking and needed water. Pt talking without difficulty and in no apparent distress. Pt given water and was instructed on her pills. Pt stating she cannot take her pills because she will choke. Took a lot of reinforcement to get patient to take all of her medications, pt either saying, she cant take them because she will choke or she doesn't know how to take them, then began making repetitive noises. Pt did eventually take medications without any issues. Pt has either been in day room or in her room napping. WCTM.
--- NOTE | 2019-06-16 17:11 | PN ---
DATE: 06/15/2019 PSYCHIATRIC PROGRESS NOTE This late entry 06/15/2019 covers elements not covered in my initial note. SUBJECTIVE: I met with the patient in the evening of 06/15/2019. Per BENNIE Witt, the patient slept 8-3/4 hours previous night. She remains somewhat anxious, obsessive, repetitive. REVIEW OF SYSTEMS: Positive for feeling cold. No CV, , pulmonary, eye system symptoms on review. MENTAL STATUS EXAM: Oriented to herself and situation. Speech coherent, repetitive. As I sat with her, she was constantly repeating things over and over. Abstraction fair, computation impaired, language function intact, attention span short. Mood and affect depressed, obsessive, anxious. No suicidal or homicidal ideation. LABORATORY DATA: Reviewed. IMPRESSION: Major depressive disorder, recurrent; obsessive-compulsive disorder; anxiety disorder, unspecified. PLAN: Increase Luvox to 75 mg a day after she has been on 50 mg for 3 days. Maintain Seroquel 12.5 mg twice a day, 25 mg at bedtime. Rest unchanged for now. MAN Beverley BRANCH MD DR: HAYDEN/rm JOB#: [id number] / [id number]
[2019-06-16] MEDS: ATORVASTATIN CALCIUM 20 MG TABLET PO SCH (20:01)
--- NOTE | 2019-06-16 20:46 | PDOC ---
Exam Note: Zelalem Note: Please also refer to the separate dictated note~for this date of service dictated separately.~Patient seen individually. Discussed the patient with Nursing staff reviewed the chart.~Reviewed interim history and current functioning. Reviewed vital signs,~Labs/ Radiology~and current medications noted below. Continue current treatment with the changes noted in the dictated addendum note Assessment: Vital Signs/I&O: Vital Signs Date Time Temp Pulse Resp B/P (MAP) Pulse Ox O2 Delivery O2 Flow Rate FiO2 06/16/19 15:44 97.4 81 18 134/73 (93) 96 06/13/19 15:22 Room Air I & O 06/15/19 06/15/19 06/16/19 15:00 23:00 07:00 Intake Total 720 ml 480 ml 240 ml Balance 720 ml 480 ml 240 ml Current Medications: Meds: Current Medications Medications (Trade) Dose Ordered Sig/Pete Route PRN Reason Start Time Stop Time Status Last Admin Dose Admin Fluvoxamine Maleate (Luvox) 50 mg DAILY PO 06/16/19 09:00 06/18/19 09:00 06/16/19 08:36 I have reviewed the current psychotropics carefully including drug interactions. Risk benefit ratio favors no change other than as noted in my dictated progress note. Diagnosis: Problems: (1) Suicidal ideation (2) Medical clearance for psychiatric admission (3) Anxiety disorder (4) Major depressive disorder, recurrent episode (5) Impulse control disorder (6) Panic disorder with agoraphobia and severe panic attacks JESSICA BRANCH MD Jun 16, 2019 20:46
--- NOTE | 2019-06-16 21:53 | NUR ---
Nursing note: Assumed care of pt in the day room. She was calm and compliant, taking her pills without incident. She had no c/o pain, no behaviors until entered the room then she became intrusive wanting his attention while he was talking to another pt. She was redirected.
[2019-06-17 03:19] VITALS: BP 156/80
[2019-06-17] MEDS: LOSARTAN 50 MG TABLET. PO SCH (08:28)
[2019-06-17] MEDS: QUEtiapine 25 MG TABLET. PO SCH ×3 (08:28→20:07)
[2019-06-17] MEDS: ASPIRIN ENTERIC COATED 81 MG TABLET.DR. PO SCH (08:28)
[2019-06-17] MEDS: OMEGA-3 FATTY ACIDS/FISH OIL 1,000 MG CAPSULE. PO SCH (08:29)
[2019-06-17] MEDS: CALCIUM CARBONATE 500 MG TABLET PO SCH ×2 (08:29→20:07)
[2019-06-17] MEDS: APIXABAN 5 MG TABLET. PO SCH ×2 (08:29→20:07)
[2019-06-17] MEDS: POLYETHYLENE GLYCOL 3350 17 GM PACKET. PO SCH (10:01)
[2019-06-17] MEDS: DOCUSATE SODIUM 100 MG CAPSULE PO SCH (10:02)
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
--- NOTE | 2019-06-17 12:20 | TX PLAN ---
Interdisciplinary Tx Plan Admission Information Jun 11, 2019 at 19:22 Legal Status (on Admission): Voluntary DPOA/Guardian Name: Ashlyn Chacon Contact Other Contact Name: Nader Montezuma Other Contact Verified Code Status: Full Code Allergies: Coded Allergies: No Known Drug Allergies (Unverified , 06/11/19) Diagnoses Primary Diagnosis: MDD Reasons for Admission: Suicidal attempt, Anxiety/Panic, Suicidal ideation, Poor impulse control Problem in Patient's Words: She has had a recent increase in behaviors without any precipitating events. Additional Admission Comments: According to the intake, pt has increased anxiety, outbursts, tearfulness, screaming for help, SI thoughts and attempts (tried to jump out of the car and throw self-down the stairs) labile during telepsych evaluation. Problems Active Problems: Anxiety Mood lability Ruminating thoughts Intrusive Inactive Problems: Medication compliants Denial of SI thoughts/attempts Pt Strengths/Limitations Ability for [facility]: Poor Cognitive Functioning/Ability: Fair Communication Skills/Ability: Fair Financial Resources: Fair Insight/Judgement: Poor Intellectual Ability: Fair Physical Health: Poor Social Skills: Fair Stability in Family: Good Stability in School/Work: Poor Verbal Skills: Fair Discharge Criteria Discharge Criteria: Able meet basic life need, Adequate arrangements @DC, Verbal commit aftercare, Improved behavior, Improved mood/thought Preliminary Discharge Plan Preliminary DC Plan: Current Living Arrange. Special Precautions Fall Risk: Low Initial D/C Plan Pt will plan to return to [facility] Identified Discharge Needs: Pt will need more mental health services (e.g. psychiatry, counseling and possible case management) Currently Utilized Resources Currently Utilized Resources/P: Has Primary Care Physician Referrals Community Resources: Mental health resources for psychiatry, counseling and case management Identified Problems/Hx/Goals Objectives/Short-Term Goals Short Term Goals: Dec. Anxiety/Panic, Dec. Outbursts, Medication Stabilization, No Suicidal/Kenan. ideation, Promote Coping Skill Short Term Goals in Patient's: Medication management to decrease her depression and anxiety Interventions/Frequency Staff Interventions/Frequency&: Psychiatrist to assess pt at least 3x per week. Senior Internal Auditor to assess pt at least 2x per week. Nursing to complete 15 minute checks daily. Encourage pt to partipate in group activities/sit in the day room. History Vocational History: Pt worked at [employer] at [employer] in the [employer] for many years. Pt just retired in 2018 since she had her CVA and could no longer work. 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 Education: Pt graduated high school and has some college credits. Community Follow-up Appt with primary care physician at discharge Community Provider/Family Inpu: Concerns that she has the beginning stages of dementia. Potential for neurologist. Treatment Plan Explained Patient/Hydro Station Operator had this treatment plan explained to him/her as indicated by the signature below and has been given the opportunity to ask questions and make suggestions: Date: Patient/Hydro Station Operator Signature: Patient/Hydro Station Operator Decline: No (Pt dtr fully intends to participate in pt care.) ARABELLA WASHINGTON Jun 17, 2019 12:20
--- NOTE | 2019-06-17 14:00 | NUR ---
CHLOE was able to complete the form requested by [employer] through [employer]; however, when submitted, a message "An error occurred during your submission. Please wait and try back again" appeared. SW waited for 30 minutes and then attempted to resubmit the form again, receiving the same message. CHLOE attempted again this afternoon and received the message for the 3rd time. CHLOE will plan to call [employer] to see if this can be settled over the phone as [employer] is not working for the submission of the form requested.
[2019-06-17 15:46] VITALS: BP 125/77
--- NOTE | 2019-06-17 19:40 | NUR ---
Pt compliant with meds and assessment. No aggression noted. Pt participated in group exercise and activity after lunch. Pt anxious about shower, afraid she might drown. Anxious about it getting dark. Anxious about her new roommate and what would happen if roommate were mean to her. This nurse encouraged pt to think and focus on positives like no longer being alone in her room, making a new friend etc.
[2019-06-17] MEDS: ATORVASTATIN CALCIUM 20 MG TABLET PO SCH (20:07)
--- NOTE | 2019-06-17 21:08 | PDOC ---
Exam Note: Zelalem Note: Please also refer to the separate dictated note~for this date of service dictated separately.~Patient seen individually. Discussed the patient with Nursing staff reviewed the chart.~Reviewed interim history and current functioning. Reviewed vital signs,~Labs/ Radiology~and current medications noted below. Continue current treatment with the changes noted in the dictated addendum note Assessment: Vital Signs/I&O: Vital Signs Date Time Temp Pulse Resp B/P (MAP) Pulse Ox O2 Delivery O2 Flow Rate FiO2 06/17/19 15:46 97.8 73 16 125/77 (93) 96 Room Air I & O 06/16/19 06/16/19 06/17/19 15:00 23:00 07:00 Intake Total 480 ml 240 ml Balance 480 ml 240 ml Current Medications: Meds: Current Medications Medications (Trade) Dose Ordered Sig/Pete Route PRN Reason Start Time Stop Time Status Last Admin Dose Admin Docusate Sodium (Colace) 100 mg DAILY PO 06/17/19 09:00 06/17/19 10:02 Polyethylene Glycol (miraLAX) 17 gm DAILY PO 06/17/19 09:00 06/17/19 10:01 I have reviewed the current psychotropics carefully including drug interactions. Risk benefit ratio favors no change other than as noted in my dictated progress note. Diagnosis: Problems: (1) Suicidal ideation (2) Medical clearance for psychiatric admission (3) Anxiety disorder (4) Major depressive disorder, recurrent episode (5) Impulse control disorder (6) Panic disorder with agoraphobia and severe panic attacks JESSICA BRANCH MD Jun 17, 2019 21:08
--- NOTE | 2019-06-17 21:58 | NUR ---
Nursing note: Assumed care of p tin her room where she was sleeping but easily awakened. She seemed happy about her roommate. She was compliant and pleasant. No c/o pain, no delusions, hallucinations, or negative behaviors.
--- NOTE | 2019-06-17 22:38 | PN ---
DATE: 06/16/2019 PSYCHIATRIC PROGRESS NOTE This late entry 06/16/2019 covers elements not covered in my initial note. SUBJECTIVE: I met with the patient in the evening of 06/16/2019. Per BENNIE Grady, the patient slept 7 hours previous night. She has appeared somewhat delusional, helpless, tearful, anxious at times, obsessive and repetitive but less so than before. REVIEW OF SYSTEMS: Ambulation impaired with walker. No CV, , pulmonary, eye, ENT system symptoms on review. MENTAL STATUS EXAM: Reasonably oriented. Speech coherent, repetitive, rapid at times. Abstraction fair, computation impaired, language function intact, attention span short. Mood and affect somewhat anxious, labile. LABORATORY DATA: Reviewed. IMPRESSION: Unchanged from initial note. PLAN: No change from initial note, but after she has been on Luvox 50 mg a day for 3 days, we will increase to 75 mg a day. Continue Seroquel, unchanged for now. JESSICA BRANCH MD DR: HAYDEN/rm JOB#: [id number] / [id number]
[2019-06-18 05:38] VITALS: BP 124/76
[2019-06-18] MEDS: CALCIUM CARBONATE 500 MG TABLET PO SCH ×2 (08:04→19:52)
[2019-06-18] MEDS: ASPIRIN ENTERIC COATED 81 MG TABLET.DR. PO SCH (08:04)
[2019-06-18] MEDS: LOSARTAN 50 MG TABLET. PO SCH (08:05)
[2019-06-18] MEDS: QUEtiapine 25 MG TABLET. PO SCH ×2 (08:05→17:27)
[2019-06-18] MEDS: DOCUSATE SODIUM 100 MG CAPSULE PO SCH (08:05)
[2019-06-18] MEDS: APIXABAN 5 MG TABLET. PO SCH ×2 (08:05→19:53)
[2019-06-18] MEDS: POLYETHYLENE GLYCOL 3350 17 GM PACKET. PO SCH (08:06)
[2019-06-18] MEDS: OMEGA-3 FATTY ACIDS/FISH OIL 1,000 MG CAPSULE. PO SCH (08:06)
[2019-06-18 09:16] LABS: BASO % 1 % (0-3); EOS # 0.1 x10^3/uL (0.0-0.7); EOS % 1 % (0-3); HEMATOCRIT 40.3 % (36.0-47.0); HEMOGLOBIN 13.4 g/dL (12.0-15.5); LYMPH # 0.8 x10^3/uL (1.0-4.8); LYMPH % 12 % (24-48); MEAN CORPUSCULAR HEMOGLOBIN 28 pg (25-35); MEAN CORPUSCULAR HGB CONC 33 g/dL (31-37); MEAN CORPUSCULAR VOLUME 85 fL (79-100); MONO # 0.4 x10^3/uL (0.0-1.1); MONO % 5 % (0-9); NEUT # 5.5 x10^3uL (1.8-7.7); NEUT % 81 % (31-73); PLATELET COUNT 177 x10^3/uL (140-400); RED BLOOD COUNT 4.74 x10^6/uL (3.50-5.40); RED CELL DISTRIBUTION WIDTH 14.5 % (11.5-14.5); WHITE BLOOD COUNT 6.7 x10^3/uL (4.0-11.0)
[2019-06-18 09:25] LABS: ALBUMIN 3.5 g/dL (3.4-5.0); CALCIUM 9.4 mg/dL (8.5-10.1); CREATININE 1.1 mg/dL (0.6-1.0); GFR 47.9; POTASSIUM 3.9 mmol/L (3.5-5.1); TOTAL BILIRUBIN 0.6 mg/dL (0.2-1.0); TOTAL PROTEIN 6.9 g/dL (6.4-8.2)
--- NOTE | 2019-06-18 12:11 | CONS ---
DATE OF CONSULTATION: 06/13/2019 NEUROLOGY CONSULT REASON FOR CONSULTATION: History of brain injury and stroke. HISTORY OF PRESENT ILLNESS: This is a 78-year-old right-handed female who was admitted to [facility] through emergency room on 06/11/2019, after she presented with symptoms consistent with worsening of depressions and suicidal ideations. Apparently, the patient stated she has been very depressed and has suicidal ideation and possibly attempts. She tried to throw herself downstairs on 05/29/2019 and also tried to jump from moving car. The patient has been very tearful. Neuro consult was requested because the patient has had history of stroke and brain injuries. Currently, she denies headaches, visual disturbances, nausea, vomiting, chest pain, shortness of breath or palpitation, dysarthria and dysphagia. She has been using a walker for ambulation because she sometimes loses her balance and falls. PAST MEDICAL HISTORY: Consistent with stroke without significant permanent neurological deficit, breast cancer, and traumatic brain injuries. PAST SURGICAL HISTORY: Significant for right mastectomy. SOCIAL HISTORY: The patient is a resident at a [facility]. She denies smoking, alcohol drinking, or illicit drug use. FAMILY HISTORY: Noncontributory. CURRENT HOME MEDICATIONS: Include apixaban 5 mg twice daily, Lipitor 20 mg at bedtime, fish oil, losartan 50 mg daily, aspirin 81 mg daily, hydrocodone/APAP 5/325 mg p.r.n. for pain, Tylenol 650 mg q. 4 hours p.r.n. fumarate 25 mg daily, Wellbutrin, calcium, vitamin D 3000 p.o. b.i.d. ALLERGIES: No known drug allergies. PHYSICAL EXAMINATION: GENERAL: Well-developed, well-nourished female, not in acute distress. She weighs 50.8 kilos. VITAL SIGNS: Blood pressure 147/70, respiratory rate 16, pulse is 84, temperature is 97, oxygen saturation is 96% on room air. HEENT: Normocephalic, atraumatic, otherwise unremarkable. NECK: Supple. Negative for carotid bruit, lymphadenopathy or thyromegaly. LUNGS: Clear to A and P. CARDIOVASCULAR: Regular rhythm, normal S1, S2. There is no S3, S4 or murmur. ABDOMEN: Soft. Bowel sounds positive. EXTREMITIES: Negative for cyanosis, clubbing, or pitting edema. NEUROLOGICAL: MENTAL STATUS: The patient is alert to herself and situation. Speech is fluent. There is no language dysfunction. Memory, judgment, and abstracting thinking are fair. The patient denies hallucination or delusion. CRANIAL NERVES: Visual long are full. The pupils are reactive to light and accommodation. The extraocular movements are intact. There is no nystagmus. There is no facial motor or sensory deficit. Hearing is intact bilaterally. The palate is elevated symmetrically. Sternocleidomastoid muscles are powerful bilaterally. The patient shrugs her shoulders symmetrically, protrudes her tongue in the midline without fasciculation or atrophy. MOTOR EXAMINATION: No focal muscle bulk was seen. The tone is normal. The strength is 4/5 throughout. SENSORY EXAMINATION: Normal pinprick, light touch, vibratory and position senses. Deep tendon reflexes were symmetric and hypoactive with absent Achilles responses. GAIT: The patient uses a walker for ambulation. LABORATORY DATA: CBC revealed white blood cells of 7.4 thousand, hemoglobin 13.8, hematocrit 42.1, platelet count 204,000. Chemistry revealed sodium of 142, potassium 4.4, chloride 106, CO2 of 28, BUN 15, creatinine 1, glucose is 87, magnesium is normal at 2, iron is low at 48. Liver enzymes are normal. Lipid profile is consistent with high HDL at 66. Thyroid profile is normal. Urinalysis is small urinary leukocyte esterase with white blood cells of 20-40 and no bacteria. IMPRESSION: 1. History of stroke without significant neurological deficit; however, the patient has been weak and difficulty to ambulate without computer assistant with a walker. 2. History of traumatic brain injury. 3. Anxiety, major depressions, and suicidal ideation and attempt. 4. Multiple medical problems include hypertension, hyperlipidemia. RECOMMENDATIONS: 1. We will continue with current medical and psychiatric care. 2. Physical therapy evaluation. M Nena SYKES MD DR: CHAVA/rm JOB#: [id number] / [id number]
[2019-06-18 15:43] VITALS: BP 125/73
--- NOTE | 2019-06-18 16:06 | NUR ---
Patient has been anxious, attention seeking, and helpless throughout this shift. She has a repetitive speech pattern with occasional repetitive consonant sounds (e.g. '[id number]...'), though mainly she repeats the last sentence she has said. She frequently states 'don't hurt me', 'I'll be good', 'I'm just so scared'. Patient increasingly anxious and agitated about 14:00, prn medication provided per eMAR. Patient was in the day room and partially participatory in morning groups; after lunch she was withdrawn to her room. Will continue to monitor.
[2019-06-18] MEDS: ATORVASTATIN CALCIUM 20 MG TABLET PO SCH (19:52)
[2019-06-18] MEDS: traZODone 50 MG TABLET. PO SCH (19:52)
[2019-06-18] MEDS: QUEtiapine 50 MG TABLET. PO SCH (19:57)
--- NOTE | 2019-06-18 21:13 | PDOC ---
Exam Note: Zelalem Note: Please also refer to the separate dictated note~for this date of service dictated separately.~Patient seen individually. Discussed the patient with Nursing staff reviewed the chart.~Reviewed interim history and current functioning. Reviewed vital signs,~Labs/ Radiology~and current medications noted below. Continue current treatment with the changes noted in the dictated addendum note Assessment: Vital Signs/I&O: Vital Signs Date Time Temp Pulse Resp B/P (MAP) Pulse Ox O2 Delivery O2 Flow Rate FiO2 06/18/19 15:43 98.8 85 18 125/73 (90) 95 06/17/19 15:46 Room Air I & O 06/17/19 06/17/19 06/18/19 15:00 23:00 07:00 Intake Total 600 ml 320 ml Balance 600 ml 320 ml Labs: Laboratory Tests Test 06/18/19 09:04 White Blood Count 6.7 x10^3/uL (4.0-11.0) Red Blood Count 4.74 x10^6/uL (3.50-5.40) Hemoglobin 13.4 g/dL (12.0-15.5) Hematocrit 40.3 % (36.0-47.0) Mean Corpuscular Volume 85 fL (79-100) Mean Corpuscular Hemoglobin 28 pg (25-35) Mean Corpuscular Hemoglobin Concent 33 g/dL (31-37) Red Cell Distribution Width 14.5 % (11.5-14.5) Platelet Count 177 x10^3/uL (140-400) Neutrophils (%) (Auto) 81 % (31-73) H Lymphocytes (%) (Auto) 12 % (24-48) L Monocytes (%) (Auto) 5 % (0-9) Eosinophils (%) (Auto) 1 % (0-3) Basophils (%) (Auto) 1 % (0-3) Neutrophils # (Auto) 5.5 x10^3uL (1.8-7.7) Lymphocytes # (Auto) 0.8 x10^3/uL (1.0-4.8) L Monocytes # (Auto) 0.4 x10^3/uL (0.0-1.1) Eosinophils # (Auto) 0.1 x10^3/uL (0.0-0.7) Basophils # (Auto) 0.0 x10^3/uL (0.0-0.2) Sodium Level 140 mmol/L (136-145) Potassium Level 3.9 mmol/L (3.5-5.1) Chloride Level 103 mmol/L (98-107) Carbon Dioxide Level 28 mmol/L (21-32) Anion Gap 9 (6-14) Blood Urea Nitrogen 23 mg/dL (7-20) H Creatinine 1.1 mg/dL (0.6-1.0) H Estimated GFR (Cockcroft-Gault) 47.9 BUN/Creatinine Ratio 21 (6-20) H Glucose Level 161 mg/dL (70-99) H Calcium Level 9.4 mg/dL (8.5-10.1) Total Bilirubin 0.6 mg/dL (0.2-1.0) Aspartate Amino Transferase (AST) 15 U/L (15-37) Alanine Aminotransferase (ALT) 21 U/L (14-59) Alkaline Phosphatase 98 U/L (46-116) Total Protein 6.9 g/dL (6.4-8.2) Albumin 3.5 g/dL (3.4-5.0) Albumin/Globulin Ratio 1.0 (1.0-1.7) Current Medications: Meds: Current Medications Medications (Trade) Dose Ordered Sig/Pete Route PRN Reason Start Time Stop Time Status Last Admin Dose Admin Quetiapine Fumarate (SEROquel) 50 mg HS PO 06/18/19 21:00 06/18/19 19:57 Trazodone HCl (Desyrel) 25 mg QHS PO 06/18/19 21:00 06/18/19 19:52 I have reviewed the current psychotropics carefully including drug interactions. Risk benefit ratio favors no change other than as noted in my dictated progress note. Diagnosis: Problems: (1) Suicidal ideation (2) Medical clearance for psychiatric admission (3) Anxiety disorder (4) Major depressive disorder, recurrent episode (5) Impulse control disorder (6) Panic disorder with agoraphobia and severe panic attacks JESSICA BRANCH MD Jun 18, 2019 21:13
--- NOTE | 2019-06-18 21:53 | NUR ---
Nursing note: Assumed care of pt in the day room. She was pleasant and visiting with peers. Pt is A&OX3, compliant and smiling. No negative behaviors at this time, no pain.
--- NOTE | 2019-06-18 22:31 | PN ---
DATE: 06/17/2019 PSYCHIATRIC PROGRESS NOTE This late entry 06/17/2019 covers elements not covered in my initial note. SUBJECTIVE: I met with the patient evening of 06/17/2019. Per BENNIE Hunt, the patient slept 7-3/4 hours previous night. She was quite anxious and scared before shower, stated she felt agoraphobic when the doors were being shut. She visited her sister and daughter and was somewhat delusional, telling them that staff ripped her clothes off. I addressed this with her. She is dismissive about it. REVIEW OF SYSTEMS: Ambulation impaired with walker. No CV, GI, or pulmonary, eye system symptoms on review. MENTAL STATUS EXAM: Oriented to herself and situation. Speech is coherent, somewhat rapid at times. Abstraction fair, computation impaired, language function intact, attention span short. Mood and affect, still obsessive, anxious, somewhat labile, but improved. LABORATORY DATA: Reviewed. IMPRESSION: Major depressive disorder, obsessive-compulsive disorder; anxiety disorder, unspecified; mild cognitive impairment. PLAN: Continue to gradually increase the Luvox to 75 mg a day. Continue Seroquel 12.5 mg 9 a.m., 5:00 p.m. 25 mg at bedtime, Zyprexa p.r.n. Rest unchanged for now. MAN Beverley BRANCH MD DR: HAYDEN/rm JOB#: [id number] / [id number]
[2019-06-19 05:45] VITALS: BP 157/89
[2019-06-19] MEDS: ASPIRIN ENTERIC COATED 81 MG TABLET.DR. PO SCH (09:44)
[2019-06-19] MEDS: CALCIUM CARBONATE 500 MG TABLET PO SCH ×2 (09:45→21:04)
[2019-06-19] MEDS: DOCUSATE SODIUM 100 MG CAPSULE PO SCH (09:45)
[2019-06-19] MEDS: POLYETHYLENE GLYCOL 3350 17 GM PACKET. PO SCH (09:45)
[2019-06-19] MEDS: QUEtiapine 25 MG TABLET. PO SCH ×2 (09:45→17:43)
[2019-06-19] MEDS: LOSARTAN 50 MG TABLET. PO SCH (09:45)
[2019-06-19] MEDS: APIXABAN 5 MG TABLET. PO SCH ×2 (09:45→21:04)
[2019-06-19] MEDS: OMEGA-3 FATTY ACIDS/FISH OIL 1,000 MG CAPSULE. PO SCH (09:46)
--- NOTE | 2019-06-19 10:51 | NUR ---
SW contacted [employer] and discussed with them the fact that SW has attempted multiple times to get pt PA and continued review with no avail. The district sales representative reports that she will take all of pt demographic information and will have a district sales representative call SW back. It is possible that pt may need to be a retro-review. But knowing that CHLOE has been attempting to complete this for the last week, may allow for a pass as the website has been down.
--- NOTE | 2019-06-19 13:55 | NUR ---
Pt is oriented to self. Pt has spent most of shift resting in room. Pt repeats statements but is pleasant with staff and other pts. Pt compliant with meds, but asking staff if she should take medications. RN encouraged pt to take medications that they would make her feel better. Pt takes medications whole. Pt ambulates with walker, pt up to breakfast and lunch. Pt pleasant and cooperative. Pt has not participated in group therapy today at this time. Bed in lowest position, non-skid socks applied. Will continue to monitor and assess.
[2019-06-19 15:50] VITALS: BP 150/76
--- NOTE | 2019-06-19 16:10 | NUR ---
SW received a call from [employer] in order to complete the insurance review and to back track the PA. Pt is approved until June 19 with an update for Monday06/21/2019. Auth # [id number].
[2019-06-19] MEDS: ATORVASTATIN CALCIUM 20 MG TABLET PO SCH (21:04)
[2019-06-19] MEDS: QUEtiapine 50 MG TABLET. PO SCH (21:04)
[2019-06-19] MEDS: traZODone 50 MG TABLET. PO SCH (21:04)
--- NOTE | 2019-06-19 21:29 | PN ---
DATE: 06/18/2019 PSYCHIATRIC PROGRESS NOTE This late entry 06/18/2019 covers elements not covered in my initial note. SUBJECTIVE: I met with the patient evening of 06/18/2019. Per BENNIE Key, the patient has been less anxious, less attention seeking, but was making vague statements, "I will be good, do not hurt me." I processed this with the patient. She is unable to explain what she meant other than she was afraid at her facility should be her to hurt by someone if she did not do what they asked her to do. We addressed this at length. She did get anxious in the afternoon, received Zyprexa at 2:00 p.m., then did better after that. Still somewhat obsessive. REVIEW OF SYSTEMS: Ambulation impaired with walker. No CV, , pulmonary, eye, ENT system symptoms on review. Reliability fair. MENTAL STATUS EXAM: Reasonably oriented. Speech is coherent, less pressured. Abstraction fair, computation impaired, language function intact, attention span short. Mood and affect still depressed, anxious, obsessive but better than before. LABORATORY DATA: Reviewed. IMPRESSION: Major depressive disorder, recurrent; obsessive-compulsive disorder; anxiety disorder, unspecified. PLAN: Increase Seroquel at bedtime dosage from 25 mg up to 50 mg. Continue 12.5 mg 9:00 a.m. and 5:00 p.m., Luvox is being increased to 75 mg a day. Start trazodone 25 mg at bedtime for insomnia. Maintain Zyprexa p.r.n. Rest unchanged. JESSICA BRANCH MD DR: HAYDEN/rm JOB#: [id number] / [id number]
--- NOTE | 2019-06-19 21:58 | PDOC ---
Exam Note: Zelalem Note: Please also refer to the separate dictated note~for this date of service dictated separately.~Patient seen individually. Discussed the patient with Nursing staff reviewed the chart.~Reviewed interim history and current functioning. Reviewed vital signs,~Labs/ Radiology~and current medications noted below. Continue current treatment with the changes noted in the dictated addendum note Assessment: Vital Signs/I&O: Vital Signs Date Time Temp Pulse Resp B/P (MAP) Pulse Ox O2 Delivery O2 Flow Rate FiO2 06/19/19 15:50 98.4 83 17 150/76 (100) 97 Room Air I & O 06/18/19 06/18/19 06/19/19 15:00 23:00 07:00 Intake Total 840 ml 360 ml Balance 840 ml 360 ml Current Medications: Meds: Current Medications Medications (Trade) Dose Ordered Sig/Pete Route PRN Reason Start Time Stop Time Status Last Admin Dose Admin Fluvoxamine Maleate (Luvox) 75 mg DAILY PO 06/19/19 09:00 06/19/19 09:44 I have reviewed the current psychotropics carefully including drug interactions. Risk benefit ratio favors no change other than as noted in my dictated progress note. Diagnosis: Problems: (1) Suicidal ideation (2) Medical clearance for psychiatric admission (3) Anxiety disorder (4) Major depressive disorder, recurrent episode (5) Impulse control disorder (6) Panic disorder with agoraphobia and severe panic attacks JESSICA BRANCH MD Jun 19, 2019 21:58
--- NOTE | 2019-06-20 04:58 | NUR ---
nsg Note: Patient in room at time of medication administration. Patient resistive and not wanting to take medications. Very confused. PRN Zyprexa given with HS meds. Patient got to sleep about a half hour later. No other notable behaviors at this time.
[2019-06-20] MEDS: LOSARTAN 50 MG TABLET. PO SCH (05:43)
[2019-06-20 06:20] VITALS: BP 180/99
[2019-06-20] MEDS: DOCUSATE SODIUM 100 MG CAPSULE PO SCH (08:04)
[2019-06-20] MEDS: ASPIRIN ENTERIC COATED 81 MG TABLET.DR. PO SCH (08:04)
[2019-06-20] MEDS: OMEGA-3 FATTY ACIDS/FISH OIL 1,000 MG CAPSULE. PO SCH (08:04)
[2019-06-20] MEDS: CALCIUM CARBONATE 500 MG TABLET PO SCH ×2 (08:04→20:59)
[2019-06-20] MEDS: QUEtiapine 25 MG TABLET. PO SCH ×2 (08:04→16:40)
[2019-06-20] MEDS: APIXABAN 5 MG TABLET. PO SCH ×2 (08:04→21:00)
[2019-06-20 08:05] VITALS: BP 153/76
[2019-06-20] MEDS: POLYETHYLENE GLYCOL 3350 17 GM PACKET. PO SCH (08:05)
--- NOTE | 2019-06-20 15:42 | NUR ---
Patient has been anxious, attention seeking, and helpless throughout this shift. She has a repetitive speech pattern when she is especially anxious, though mainly she repeats the last sentence she has said. Patient increasingly anxious at lunch but was redirectable to attend SW group after lunch. She did not want to participate in the activity group afterwards. Will continue to monitor.
[2019-06-20 16:02] VITALS: BP 155/82
--- NOTE | 2019-06-20 16:54 | NUR ---
WEEKLY ACTIVITY THERAPY NOTE Date of Admission: 06/11/2019 Date of AT Assessment: 06/14/2019 Goal aimed: to increase stress management skills Initial goal: Pt. will participate in all relaxation activities offered. Weekly progress towards goal: did not achieve, 0/2 relaxation activity offered Group participation level: 1 min, 1 mod, 3 full Weekly highlights: competitive and pleasant during shuffleboard on Monday Behaviors observed: more anxious moments/withdrawn this week, less engagement as week progressed, slow to engaged in activities at times Plan: no change to goal at this time Beneficial adaptations: invitations to group, 1:1 support to engage
--- NOTE | 2019-06-20 20:53 | PDOC ---
Exam Note: Zelalem Note: Please also refer to the separate dictated note~for this date of service dictated separately.~Patient seen individually. Discussed the patient with Nursing staff reviewed the chart.~Reviewed interim history and current functioning. Reviewed vital signs,~Labs/ Radiology~and current medications noted below. Continue current treatment with the changes noted in the dictated addendum note Assessment: Vital Signs/I&O: Vital Signs Date Time Temp Pulse Resp B/P (MAP) Pulse Ox O2 Delivery O2 Flow Rate FiO2 06/20/19 16:02 97.4 67 16 155/82 (106) 100 Room Air I & O 06/19/19 06/19/19 06/20/19 15:00 23:00 07:00 Intake Total 960 ml 600 ml Balance 960 ml 600 ml Current Medications: I have reviewed the current psychotropics carefully including drug interactions. Risk benefit ratio favors no change other than as noted in my dictated progress note. Diagnosis: Problems: (1) Suicidal ideation (2) Medical clearance for psychiatric admission (3) Anxiety disorder (4) Major depressive disorder, recurrent episode (5) Impulse control disorder (6) Panic disorder with agoraphobia and severe panic attacks JESSICA BRANCH MD Jun 20, 2019 20:53
[2019-06-20] MEDS: ATORVASTATIN CALCIUM 20 MG TABLET PO SCH (20:59)
[2019-06-20] MEDS: QUEtiapine 50 MG TABLET. PO SCH (20:59)
[2019-06-20] MEDS: traZODone 50 MG TABLET. PO SCH (21:00)
--- NOTE | 2019-06-21 00:34 | NUR ---
Last evening pt sat in day room for awhile. When going to bed she declined to change her clothes or remove her shoes saying she wanted to "be ready to go". When taking HS meds she had some repetitive speech and said she was not able to swallow pills. When pills were given she took them whole without difficulty. She has been pleasant to staff and social with her roommate.
[2019-06-21 05:58] VITALS: BP 190/83
[2019-06-21] MEDS: LOSARTAN 50 MG TABLET. PO SCH (06:14)
[2019-06-21] MEDS: OMEGA-3 FATTY ACIDS/FISH OIL 1,000 MG CAPSULE. PO SCH (08:05)
[2019-06-21] MEDS: QUEtiapine 25 MG TABLET. PO SCH ×2 (08:05→17:30)
[2019-06-21] MEDS: CALCIUM CARBONATE 500 MG TABLET PO SCH ×2 (08:05→19:59)
[2019-06-21] MEDS: APIXABAN 5 MG TABLET. PO SCH ×2 (08:05→20:00)
[2019-06-21] MEDS: POLYETHYLENE GLYCOL 3350 17 GM PACKET. PO SCH (08:05)
[2019-06-21] MEDS: ASPIRIN ENTERIC COATED 81 MG TABLET.DR. PO SCH (08:05)
[2019-06-21] MEDS: DOCUSATE SODIUM 100 MG CAPSULE PO SCH (08:05)
[2019-06-21] MEDS ORDERED: CHOLECALCIFEROL (VITAMIN D3) 50,000 UNIT CAPSULE PO SCH (09:00)
--- NOTE | 2019-06-21 14:19 | PN ---
DATE: 06/19/2019 PSYCHIATRIC PROGRESS NOTE This late entry, 06/19/2019, covers elements not covered in my initial note. Per BENNIE Cheek, the patient slept 7 hours previous night. She continues to be somewhat anxious, repeats herself slept most of the day, confused regarding medications and I addressed this with her in the evening, answered her questions clarified what she was on psychotropics and the reason for each. REVIEW OF SYSTEMS: Ambulation impaired with walker. No CV, , pulmonary, eye system symptoms on review. She has vague somatic symptoms. MENTAL STATUS EXAM: Oriented to herself and situation. Speech coherent, can be repetitive rapid at times. Abstraction fair, computation impaired, language function intact, attention span short. Mood and affect remain somewhat anxious, but improved. LABORATORY DATA: Reviewed. IMPRESSION: Unchanged from initial note. PLAN: No change from initial note. MAN Beverley BRANCH MD DR: HAYDEN/rm JOB#: [id number] / [id number]
--- NOTE | 2019-06-21 15:15 | PN ---
DATE: 06/20/2019 PSYCHIATRIC PROGRESS NOTE This late entry 06/20/2019 covers elements not covered in my initial note. SUBJECTIVE: I met with the patient evening of 06/20/2019. Per BENNIE Key, the patient slept 8-1/4 hours previous night. She remains somewhat anxious, repetitive in her speech, but again better than before. REVIEW OF SYSTEMS: Ambulation impaired with walker. No CV, , pulmonary, eye, ENT system symptoms on review. MENTAL STATUS EXAM: Oriented to herself and situation. Speech is coherent, rapid at times, less so than before. Abstraction fair, computation impaired, language function intact, attention span short. Mood and affect less anxious and obsessive, less dysphoric. LABORATORY DATA: Reviewed. IMPRESSION: Unchanged from initial note. PLAN: Increase the Luvox to 75 mg a day. Continue Seroquel, trazodone at current dosage along with Zyprexa p.r.n. JESSICA BRANCH MD DR: HAYDEN/mr JOB#: [id number] / [id number]
[2019-06-21 16:15] VITALS: BP 133/68
--- NOTE | 2019-06-21 17:01 | NUR ---
Today patient has been calm and cooperative with a few periods of fearfulness and anxiousness. Did not have trouble taking medications this morning, did say to nurse, "Could you hurry up with that!". Pt had not issues showering today. After lunch, became fearful and anxious. Began a high pitch "ahhh". Stated her mind got confused and she wanted to take a nap, asking to lie down for nap. RN walking with patient to her room, pt said she was scared. RN said she was safe, pt responded, "now ill be repeating that!" Pt states she doesn't know why she repeats things. After nap patient expressed fear again about the ice outside, pt kept stating, "im scared". Pt distracted with puzzles and coloring. Pt is still med seeking, asking for her medications. Pt ambulating with walker. Pts fear and anxiety seem to be improving overall. Not voicing or attempting threats to harm self. Will continue with emotional support, medication management and increasing seroquel dose per Dr Avlarado, and encouraging group participation.
[2019-06-21] MEDS: ATORVASTATIN CALCIUM 20 MG TABLET PO SCH (19:59)
[2019-06-21] MEDS: QUEtiapine 50 MG TABLET. PO SCH (19:59)
[2019-06-21] MEDS: traZODone 50 MG TABLET. PO SCH (20:00)
--- NOTE | 2019-06-21 20:52 | PDOC ---
Exam Note: Zelalem Note: Please also refer to the separate dictated note~for this date of service dictated separately.~Patient seen individually. Discussed the patient with Nursing staff reviewed the chart.~Reviewed interim history and current functioning. Reviewed vital signs,~Labs/ Radiology~and current medications noted below. Continue current treatment with the changes noted in the dictated addendum note Assessment: Vital Signs/I&O: Vital Signs Date Time Temp Pulse Resp B/P (MAP) Pulse Ox O2 Delivery O2 Flow Rate FiO2 06/21/19 16:15 97.5 83 20 133/68 (89) 98 06/21/19 05:58 Room Air I & O 06/20/19 06/20/19 06/21/19 15:00 23:00 07:00 Intake Total 840 ml 240 ml 240 ml Balance 840 ml 240 ml 240 ml Current Medications: Meds: Current Medications Medications (Trade) Dose Ordered Sig/Pete Route PRN Reason Start Time Stop Time Status Last Admin Dose Admin Quetiapine Fumarate (SEROquel) 25 mg 0900,1700 PO 06/21/19 17:00 06/21/19 17:30 I have reviewed the current psychotropics carefully including drug interactions. Risk benefit ratio favors no change other than as noted in my dictated progress note. Diagnosis: Problems: (1) Suicidal ideation (2) Medical clearance for psychiatric admission (3) Anxiety disorder (4) Major depressive disorder, recurrent episode (5) Impulse control disorder (6) Panic disorder with agoraphobia and severe panic attacks JESSICA BRANCH MD Jun 21, 2019 20:52
--- NOTE | 2019-06-21 22:20 | NUR ---
Nsg Note: Patient was in bedroom at time of medication administration and assessments. Patient was compliant with all cares. Somewhat confused and anxious. Needs frequent queing. Went to sleep shortly afterwards.
[2019-06-22 05:59] VITALS: BP 159/77
[2019-06-22] MEDS: POLYETHYLENE GLYCOL 3350 17 GM PACKET. PO SCH (09:13)
[2019-06-22] MEDS: CHOLECALCIFEROL (VITAMIN D3) 50,000 UNIT CAPSULE PO SCH (09:14)
[2019-06-22] MEDS: LOSARTAN 50 MG TABLET. PO SCH (09:14)
[2019-06-22] MEDS: QUEtiapine 25 MG TABLET. PO SCH ×3 (09:14→21:00)
[2019-06-22] MEDS: ASPIRIN ENTERIC COATED 81 MG TABLET.DR. PO SCH (09:14)
[2019-06-22] MEDS: CALCIUM CARBONATE 500 MG TABLET PO SCH ×2 (09:14→20:43)
[2019-06-22] MEDS: OMEGA-3 FATTY ACIDS/FISH OIL 1,000 MG CAPSULE. PO SCH (09:14)
[2019-06-22] MEDS: APIXABAN 5 MG TABLET. PO SCH ×2 (09:14→20:43)
[2019-06-22] MEDS: DOCUSATE SODIUM 100 MG CAPSULE PO SCH (09:14)
--- NOTE | 2019-06-22 12:13 | NUR ---
Nursing Note Patient withdrawn to room this morning, encouraged to participate in group but refused and stated "I would rather sleep'. Pt confused, and has repetitive vocalizations, required repeated instructions and reinforcement to take her medications, however compliant . Denies SI. Denies pain. No aggression. No agitation.
[2019-06-22 15:22] VITALS: BP 118/73
[2019-06-22] MEDS: ATORVASTATIN CALCIUM 20 MG TABLET PO SCH (20:42)
[2019-06-22] MEDS: traZODone 50 MG TABLET. PO SCH (20:43)
--- NOTE | 2019-06-22 20:49 | PDOC ---
Exam Note: Zelalem Note: Please also refer to the separate dictated note~for this date of service dictated separately.~Patient seen individually. Discussed the patient with Nursing staff reviewed the chart.~Reviewed interim history and current functioning. Reviewed vital signs,~Labs/ Radiology~and current medications noted below. Continue current treatment with the changes noted in the dictated addendum note Assessment: Vital Signs/I&O: Vital Signs Date Time Temp Pulse Resp B/P (MAP) Pulse Ox O2 Delivery O2 Flow Rate FiO2 06/22/19 15:22 98.5 80 20 118/73 (88) 100 06/22/19 05:59 Room Air I & O 06/21/19 06/21/19 06/22/19 15:00 23:00 07:00 Intake Total 360 ml 600 ml Balance 360 ml 600 ml Current Medications: I have reviewed the current psychotropics carefully including drug interactions. Risk benefit ratio favors no change other than as noted in my dictated progress note. Diagnosis: Problems: (1) Suicidal ideation (2) Anxiety disorder (3) Major depressive disorder, recurrent episode (4) Impulse control disorder (5) Panic disorder with agoraphobia and severe panic attacks JESSICA BRANCH MD Jun 22, 2019 20:49
--- NOTE | 2019-06-22 22:05 | NUR ---
Nsg Note: Patient in room at time of medication administration and assessments. Patient was somewhat agitated and very anxious, did not want to let go of my hands. Took much talking and queing to get her to take her medications. Patient was saying things like "I'm brain . I am signing my life away. I won't wake up again." Had to keep redirecting. Patient eventually fell to sleep.
[2019-06-23 05:40] VITALS: BP 162/79
[2019-06-23 08:22] VITALS: BP 141/70
[2019-06-23] MEDS: POLYETHYLENE GLYCOL 3350 17 GM PACKET. PO SCH (08:23)
[2019-06-23] MEDS: OMEGA-3 FATTY ACIDS/FISH OIL 1,000 MG CAPSULE. PO SCH (08:23)
[2019-06-23] MEDS: ASPIRIN ENTERIC COATED 81 MG TABLET.DR. PO SCH (08:23)
[2019-06-23] MEDS: APIXABAN 5 MG TABLET. PO SCH ×2 (08:23→20:27)
[2019-06-23] MEDS: CALCIUM CARBONATE 500 MG TABLET PO SCH ×2 (08:24→20:27)
[2019-06-23] MEDS: DOCUSATE SODIUM 100 MG CAPSULE PO SCH (08:24)
[2019-06-23] MEDS: LOSARTAN 50 MG TABLET. PO SCH (08:24)
[2019-06-23 08:49] LABS: BASO % 1 % (0-3); EOS # 0.2 x10^3/uL (0.0-0.7); EOS % 3 % (0-3); HEMATOCRIT 36.2 % (36.0-47.0); HEMOGLOBIN 12.3 g/dL (12.0-15.5); LYMPH # 1.4 x10^3/uL (1.0-4.8); LYMPH % 21 % (24-48); MEAN CORPUSCULAR HEMOGLOBIN 30 pg (25-35); MEAN CORPUSCULAR HGB CONC 34 g/dL (31-37); MEAN CORPUSCULAR VOLUME 88 fL (79-100); MONO # 0.7 x10^3/uL (0.0-1.1); MONO % 10 % (0-9); NEUT # 4.2 x10^3uL (1.8-7.7); NEUT % 65 % (31-73); PLATELET COUNT 165 x10^3/uL (140-400); RED BLOOD COUNT 4.14 x10^6/uL (3.50-5.40); RED CELL DISTRIBUTION WIDTH 14.8 % (11.5-14.5); WHITE BLOOD COUNT 6.4 x10^3/uL (4.0-11.0)
[2019-06-23 09:02] LABS: ALBUMIN 3.3 g/dL (3.4-5.0); CALCIUM 9.4 mg/dL (8.5-10.1); GFR 53.5; POTASSIUM 4.4 mmol/L (3.5-5.1); TOTAL BILIRUBIN 0.5 mg/dL (0.2-1.0); TOTAL PROTEIN 6.7 g/dL (6.4-8.2)
--- NOTE | 2019-06-23 10:59 | NUR ---
Nursing Note Pt pleasantly confused, and has repetitive vocalizations, required repeated instructions and reinforcement to take her medications, however compliant with medications taken whole. Pt spends time in the day room doing group and puzzles. No aggression. No agitation. Denies SI.
[2019-06-23 15:25] VITALS: BP 166/83
[2019-06-23] MEDS: QUEtiapine 25 MG TABLET. PO SCH ×2 (17:09→20:27)
[2019-06-23] MEDS: ATORVASTATIN CALCIUM 20 MG TABLET PO SCH (20:26)
[2019-06-23] MEDS: traZODone 50 MG TABLET. PO SCH (20:26)
--- NOTE | 2019-06-23 20:52 | PDOC ---
Exam Note: Zelalem Note: Please also refer to the separate dictated note~for this date of service dictated separately.~Patient seen individually. Discussed the patient with Nursing staff reviewed the chart.~Reviewed interim history and current functioning. Reviewed vital signs,~Labs/ Radiology~and current medications noted below. Continue current treatment with the changes noted in the dictated addendum note Assessment: Vital Signs/I&O: Vital Signs Date Time Temp Pulse Resp B/P (MAP) Pulse Ox O2 Delivery O2 Flow Rate FiO2 06/23/19 15:25 97.8 82 18 166/83 (110) 97 06/22/19 05:59 Room Air I & O 06/22/19 06/22/19 06/23/19 15:00 23:00 07:00 Intake Total 820 ml 240 ml Balance 820 ml 240 ml Labs: Laboratory Tests Test 06/23/19 08:05 White Blood Count 6.4 x10^3/uL (4.0-11.0) Red Blood Count 4.14 x10^6/uL (3.50-5.40) Hemoglobin 12.3 g/dL (12.0-15.5) Hematocrit 36.2 % (36.0-47.0) Mean Corpuscular Volume 88 fL (79-100) Mean Corpuscular Hemoglobin 30 pg (25-35) Mean Corpuscular Hemoglobin Concent 34 g/dL (31-37) Red Cell Distribution Width 14.8 % (11.5-14.5) H Platelet Count 165 x10^3/uL (140-400) Neutrophils (%) (Auto) 65 % (31-73) Lymphocytes (%) (Auto) 21 % (24-48) L Monocytes (%) (Auto) 10 % (0-9) H Eosinophils (%) (Auto) 3 % (0-3) Basophils (%) (Auto) 1 % (0-3) Neutrophils # (Auto) 4.2 x10^3uL (1.8-7.7) Lymphocytes # (Auto) 1.4 x10^3/uL (1.0-4.8) Monocytes # (Auto) 0.7 x10^3/uL (0.0-1.1) Eosinophils # (Auto) 0.2 x10^3/uL (0.0-0.7) Basophils # (Auto) 0.0 x10^3/uL (0.0-0.2) Sodium Level 142 mmol/L (136-145) Potassium Level 4.4 mmol/L (3.5-5.1) Chloride Level 106 mmol/L (98-107) Carbon Dioxide Level 31 mmol/L (21-32) Anion Gap 5 (6-14) L Blood Urea Nitrogen 25 mg/dL (7-20) H Creatinine 1.0 mg/dL (0.6-1.0) Estimated GFR (Cockcroft-Gault) 53.5 BUN/Creatinine Ratio 25 (6-20) H Glucose Level 86 mg/dL (70-99) Calcium Level 9.4 mg/dL (8.5-10.1) Total Bilirubin 0.5 mg/dL (0.2-1.0) Aspartate Amino Transferase (AST) 18 U/L (15-37) Alanine Aminotransferase (ALT) 21 U/L (14-59) Alkaline Phosphatase 95 U/L (46-116) Total Protein 6.7 g/dL (6.4-8.2) Albumin 3.3 g/dL (3.4-5.0) L Albumin/Globulin Ratio 1.0 (1.0-1.7) Current Medications: Meds: Current Medications Medications (Trade) Dose Ordered Sig/Pete Route PRN Reason Start Time Stop Time Status Last Admin Dose Admin Quetiapine Fumarate (SEROquel) 75 mg HS PO 06/22/19 21:00 06/23/19 20:27 Quetiapine Fumarate (SEROquel) 25 mg DAILY@1700 PO 06/23/19 17:00 06/23/19 17:09 I have reviewed the current psychotropics carefully including drug interactions. Risk benefit ratio favors no change other than as noted in my dictated progress note. Diagnosis: Problems: (1) Suicidal ideation (2) Anxiety disorder (3) Major depressive disorder, recurrent episode (4) Impulse control disorder (5) Panic disorder with agoraphobia and severe panic attacks JESSICA BRANCH MD Jun 23, 2019 20:52
--- NOTE | 2019-06-23 23:19 | PN ---
DATE: 06/22/2019 PSYCHIATRIC PROGRESS NOTE This late entry, 06/22/2019, covers elements not covered in my initial note. SUBJECTIVE: I met with the patient in the evening of 06/22/2019. The patient slept 9 hours previous night. Overall, she had a better day, less anxious, less obsessive, still repetitive vocalizations at times. Compliant with medications, drowsy in the morning. REVIEW OF SYSTEMS: Ambulation impaired with walker and vague somatic symptoms. No CV, , pulmonary, eye system symptoms on review. MENTAL STATUS EXAM: Reasonably oriented. Speech is coherent, less pressured. Abstraction fair, computation impaired, language function intact. Mood and affect remain somewhat anxious, labile. LABORATORY DATA: Reviewed. IMPRESSION: Unchanged from initial note. PLAN: The patient has had some drowsiness in the morning. We will change the Seroquel which is currently at 25 mg, 0900 and 1700 and 150 mg at bedtime and we will change it to Seroquel 25 mg 1700, 75 mg at bedtime. Maintain Luvox along with Zyprexa p.r.n., trazodone scheduled 25 mg at bedtime. Rest unchanged. JESSICA BRANCH MD DR: HAYDEN/rm JOB#: [id number] / [id number]
--- NOTE | 2019-06-23 23:20 | PN ---
DATE: 06/21/2019 PSYCHIATRIC PROGRESS NOTE This late entry 06/21/2019, covers elements not covered in my initial note. SUBJECTIVE: I met with the patient evening of 06/21/2019. Per BENNIE Slater, the patient slept 7-3/4 hours previous night. She remains somewhat helpless, anxious, repetitive in her speech, constantly stating that she was afraid of something as I met with her individually, but not sure what it was. She took a nap after lunch, then did better. REVIEW OF SYSTEMS: Ambulation impaired with walker. No CV, , pulmonary, eye, ENT system symptoms on review. MENTAL STATUS EXAM: Reasonably oriented. Speech coherent, repetitive, less yelling. Abstraction fair, computation impaired, language function intact, attention span short. Mood and affect remain somewhat obsessive, anxious. LABORATORY DATA: Reviewed. IMPRESSION: Unchanged from initial note. PLAN: Increase the 9:00 a.m. and 5 p.m. Seroquel from 12.5 to 25 mg. Maintain 50 mg at bedtime. Continue to gradually increase the Luvox currently at 75 mg a day. Rest unchanged for now. MAN Beverley BRANCH MD DR: HAYDEN/rm JOB#: [id number] / [id number]
--- NOTE | 2019-06-24 02:07 | NUR ---
Nsg Note: Patient in room at time of medication administration and assessments. Patient confused, anxious but compliant with cares. Patient had a hard time going back to sleep, wandering around confused for a while. Eventually went back to sleep. No other notable behaviors at this time.
[2019-06-24 05:57] VITALS: BP 164/88
[2019-06-24] MEDS: POLYETHYLENE GLYCOL 3350 17 GM PACKET. PO SCH (08:56)
[2019-06-24] MEDS: OMEGA-3 FATTY ACIDS/FISH OIL 1,000 MG CAPSULE. PO SCH (08:56)
[2019-06-24] MEDS: ASPIRIN ENTERIC COATED 81 MG TABLET.DR. PO SCH (08:56)
[2019-06-24] MEDS: DIVALPROEX 125 MG CAP.SPRINK PO SCH ×2 (08:56→19:29)
[2019-06-24] MEDS: DOCUSATE SODIUM 100 MG CAPSULE PO SCH (08:57)
[2019-06-24] MEDS: CALCIUM CARBONATE 500 MG TABLET PO SCH ×2 (08:57→19:29)
[2019-06-24] MEDS: LOSARTAN 50 MG TABLET. PO SCH (08:57)
[2019-06-24] MEDS: APIXABAN 5 MG TABLET. PO SCH ×2 (08:57→19:29)
[2019-06-24 15:54] VITALS: BP 119/71
[2019-06-24] MEDS: QUEtiapine 25 MG TABLET. PO SCH ×2 (17:00→19:28)
--- NOTE | 2019-06-24 18:03 | NUR ---
Pt anxious when this nurse first spoke with pt during meds and assessment. Repetitive speech when anxious. Pt did sit for group in the morning and seemed to become more at ease. After lunch however, pt again became very anxious. Pt did seem to calm when this nurse sat with pt in dayroom and did word search and puzzle with pt. Pt compliant with meds and assessment.
[2019-06-24] MEDS: traZODone 50 MG TABLET. PO SCH (19:29)
[2019-06-24] MEDS: ATORVASTATIN CALCIUM 20 MG TABLET PO SCH (19:29)
--- NOTE | 2019-06-24 20:47 | PDOC ---
Exam Note: Zelalem Note: Please also refer to the separate dictated note~for this date of service dictated separately.~Patient seen individually. Discussed the patient with Nursing staff reviewed the chart.~Reviewed interim history and current functioning. Reviewed vital signs,~Labs/ Radiology~and current medications noted below. Continue current treatment with the changes noted in the dictated addendum note Assessment: Vital Signs/I&O: Vital Signs Date Time Temp Pulse Resp B/P (MAP) Pulse Ox O2 Delivery O2 Flow Rate FiO2 06/24/19 15:54 98.3 73 18 119/71 (87) 98 06/22/19 05:59 Room Air I & O 06/23/19 06/23/19 06/24/19 15:00 23:00 07:00 Intake Total 840 ml 240 ml 120 ml Balance 840 ml 240 ml 120 ml Current Medications: Meds: Current Medications Medications (Trade) Dose Ordered Sig/Pete Route PRN Reason Start Time Stop Time Status Last Admin Dose Admin Divalproex Sodium (Depakote Sprinkles) 125 mg BID PO 06/24/19 09:00 06/24/19 19:29 I have reviewed the current psychotropics carefully including drug interactions. Risk benefit ratio favors no change other than as noted in my dictated progress note. Diagnosis: Problems: (1) Suicidal ideation (2) Anxiety disorder (3) Major depressive disorder, recurrent episode (4) Impulse control disorder (5) Panic disorder with agoraphobia and severe panic attacks JESSICA BRANCH MD Jun 24, 2019 20:47
--- NOTE | 2019-06-24 23:35 | PN ---
DATE: 06/23/2019 PSYCHIATRIC PROGRESS NOTE This late entry 06/23/2019 covers elements not covered in my initial note. SUBJECTIVE: I met with the patient evening of 06/23/2019. Per BENNIE Shipley, the patient had a good day. She slept 10 hours previous night, remains anxious, repetitive, somewhat pressured speech. REVIEW OF SYSTEMS: Ambulation impaired with walker. No CV, , pulmonary, eye, ENT system symptoms on review. Reliability varies. MENTAL STATUS EXAM: Oriented to herself and situation. Speech coherent, rapid at times. Abstraction fair, computation impaired, language function intact, attention span short. Mood and affect remains somewhat labile. LABORATORY DATA: Reviewed. IMPRESSION: Unchanged from initial note. PLAN: Continue current psychotropics including Seroquel, Luvox and Zyprexa as p.r.n., trazodone for insomnia. Start Depakote 125 mg 9 a.m. and 5 p.m. for her questionable bipolar mood disorder symptoms versus impulse control disorder. Check CBC, CMP, valproic acid level in 3 days. Rest unchanged for now. MAN Beverley BRANCH MD DR: HAYDEN/rm JOB#: [id number] / [id number]
--- NOTE | 2019-06-25 03:28 | NUR ---
Pt has been in her room most of the shift, she has bee pleasant and cooperative. Meds were taken whole after saying she was taking too many pills. She continues to have repetitive speech at times. At one time tonight she awoke and ran down the [place] yelling to "call the police". After returning her to patient room she soon went back to sleep.
[2019-06-25 06:06] VITALS: BP 176/79
[2019-06-25] MEDS: APIXABAN 5 MG TABLET. PO SCH ×2 (09:11→20:31)
[2019-06-25] MEDS: POLYETHYLENE GLYCOL 3350 17 GM PACKET. PO SCH (09:11)
[2019-06-25] MEDS: DOCUSATE SODIUM 100 MG CAPSULE PO SCH (09:11)
[2019-06-25] MEDS: ASPIRIN ENTERIC COATED 81 MG TABLET.DR. PO SCH (09:11)
[2019-06-25] MEDS: DIVALPROEX 125 MG CAP.SPRINK PO SCH ×2 (09:11→20:31)
[2019-06-25] MEDS: LOSARTAN 50 MG TABLET. PO SCH (09:12)
[2019-06-25] MEDS: CALCIUM CARBONATE 500 MG TABLET PO SCH ×2 (09:12→20:31)
[2019-06-25] MEDS: OMEGA-3 FATTY ACIDS/FISH OIL 1,000 MG CAPSULE. PO SCH (09:12)
--- NOTE | 2019-06-25 11:20 | NUR ---
Patient resistive with medications, stating multiple times "that is too many, that is just too many". She eventually took them after nurse continued to insist that the doctor said she needed to take them. She was cooperative with assessment. Patient resistive (yelling no in the hallway) with shower but compliant once she was in shower. Patient remains somewhat anxious, no tearful episodes noted this morning.
[2019-06-25 16:13] VITALS: BP 115/70
[2019-06-25] MEDS: QUEtiapine 25 MG TABLET. PO SCH ×2 (17:18→20:30)
[2019-06-25] MEDS: traZODone 50 MG TABLET. PO SCH (20:30)
[2019-06-25] MEDS: ATORVASTATIN CALCIUM 20 MG TABLET PO SCH (20:31)
--- NOTE | 2019-06-25 20:55 | PDOC ---
Exam Note: Zelalem Note: Please also refer to the separate dictated note~for this date of service dictated separately.~Patient seen individually. Discussed the patient with Nursing staff reviewed the chart.~Reviewed interim history and current functioning. Reviewed vital signs,~Labs/ Radiology~and current medications noted below. Continue current treatment with the changes noted in the dictated addendum note Assessment: Vital Signs/I&O: Vital Signs Date Time Temp Pulse Resp B/P (MAP) Pulse Ox O2 Delivery O2 Flow Rate FiO2 06/25/19 16:13 97.3 76 18 115/70 (85) 95 Room Air I & O 06/24/19 06/24/19 06/25/19 15:00 23:00 07:00 Intake Total 720 ml 240 ml Balance 720 ml 240 ml Current Medications: Meds: Current Medications Medications (Trade) Dose Ordered Sig/Pete Route PRN Reason Start Time Stop Time Status Last Admin Dose Admin Fluvoxamine Maleate (Luvox) 100 mg DAILY PO 06/25/19 09:00 06/25/19 09:11 I have reviewed the current psychotropics carefully including drug interactions. Risk benefit ratio favors no change other than as noted in my dictated progress note. Diagnosis: Problems: (1) Suicidal ideation (2) Anxiety disorder (3) Major depressive disorder, recurrent episode (4) Impulse control disorder (5) Panic disorder with agoraphobia and severe panic attacks JESSICA BRANCH MD Jun 25, 2019 20:55
--- NOTE | 2019-06-26 03:24 | PN ---
DATE: 06/24/2019 PSYCHIATRIC PROGRESS NOTE This late entry 06/24/2019 covers elements not covered in my initial note. SUBJECTIVE: I met with the patient in the evening in her room. Per Eduar RN, the patient slept 7-1/2 hours previous night. She has been anxious in the afternoon. She was somewhat withdrawn. Stated she was afraid of the nursing coordinator in the shower, believed something bad was going to happen to her. She gets quite anxious, obsessive. REVIEW OF SYSTEMS: Ambulation impaired with walker. No CV, , pulmonary, eye, ENT system symptoms on review. Reliability varies. MENTAL STATUS EXAM: Oriented to herself and situation. Speech coherent, abstraction fair, computation impaired, language function intact, attention span short. Mood and affect remains anxious, labile. LABORATORY DATA: Reviewed. IMPRESSION: Unchanged from initial note. PLAN: Increase Luvox to 100 mg a day after she has been on 75 for 3 days. Rest unchanged including Seroquel, trazodone, and she uses Zyprexa p.r.n. JESSICA BRANCH MD DR: HAYDEN/rm JOB#: [id number] / [id number]
[2019-06-26 05:04] VITALS: BP 137/80
[2019-06-26] MEDS: CALCIUM CARBONATE 500 MG TABLET PO SCH ×2 (07:56→19:46)
[2019-06-26] MEDS: LOSARTAN 50 MG TABLET. PO SCH (07:56)
[2019-06-26] MEDS: DIVALPROEX 125 MG CAP.SPRINK PO SCH ×2 (07:56→19:47)
[2019-06-26] MEDS: DOCUSATE SODIUM 100 MG CAPSULE PO SCH (07:56)
[2019-06-26] MEDS: ASPIRIN ENTERIC COATED 81 MG TABLET.DR. PO SCH (07:56)
[2019-06-26] MEDS: OMEGA-3 FATTY ACIDS/FISH OIL 1,000 MG CAPSULE. PO SCH (07:56)
[2019-06-26] MEDS: APIXABAN 5 MG TABLET. PO SCH ×2 (07:56→19:47)
[2019-06-26] MEDS: POLYETHYLENE GLYCOL 3350 17 GM PACKET. PO SCH (08:00)
--- NOTE | 2019-06-26 15:00 | NUR ---
Pt pleasant and cooperative with assessments and medications, but has frequent periods of anxiety and fearfulness. She also had a few tearful episodes. RN reinforced that pt was safe and in hospital and her family knows where she is. She continues to have repetitive speech with high pitched yells if startled or afraid. She also stated she "needed to reprogram her brain" and that she "wasn't always like this". She did participate in group and socialized in day room. Pt is ambulating well around unit with walker.
[2019-06-26 15:53] VITALS: BP 123/68
[2019-06-26] MEDS: QUEtiapine 25 MG TABLET. PO SCH ×2 (17:00→19:46)
--- NOTE | 2019-06-26 18:17 | NUR ---
Medications administered without scanning d/t WOWs being down, given at 1706.
[2019-06-26] MEDS: traZODone 50 MG TABLET. PO SCH (19:47)
[2019-06-26] MEDS: ATORVASTATIN CALCIUM 20 MG TABLET PO SCH (19:47)
--- NOTE | 2019-06-26 20:49 | PDOC ---
Exam Note: Zelalem Note: Please also refer to the separate dictated note~for this date of service dictated separately.~Patient seen individually. Discussed the patient with Nursing staff reviewed the chart.~Reviewed interim history and current functioning. Reviewed vital signs,~Labs/ Radiology~and current medications noted below. Continue current treatment with the changes noted in the dictated addendum note Assessment: Vital Signs/I&O: Vital Signs Date Time Temp Pulse Resp B/P (MAP) Pulse Ox O2 Delivery O2 Flow Rate FiO2 06/26/19 15:53 98.1 73 18 123/68 (86) 97 06/26/19 05:04 Room Air I & O 06/25/19 06/25/19 06/26/19 15:00 23:00 07:00 Intake Total 600 ml 480 ml Balance 600 ml 480 ml Current Medications: I have reviewed the current psychotropics carefully including drug interactions. Risk benefit ratio favors no change other than as noted in my dictated progress note. Diagnosis: Problems: (1) Suicidal ideation (2) Medical clearance for psychiatric admission (3) Anxiety disorder (4) Major depressive disorder, recurrent episode (5) Impulse control disorder (6) Panic disorder with agoraphobia and severe panic attacks JESSICA BRANCH MD Jun 26, 2019 20:49
--- NOTE | 2019-06-26 23:02 | PN ---
DATE: 06/25/2019 PSYCHIATRIC PROGRESS NOTE This late entry 06/25/2019 covers elements not covered in my initial note. SUBJECTIVE: I met with the patient evening of 06/25/2019. Per BENNIE Lawrence, the patient slept 7 hours previous night. She refused to take her medications, took them later, was yelling in the shower, later she did okay. In the evening when I met with her, she was constantly saying "I need help, I need help." I sat with her in her room and there was nothing specific that she needed help with. REVIEW OF SYSTEMS: Ambulation impaired with walker. No CV, , pulmonary, eye, ENT system symptoms on review. She has vague somatic symptoms. MENTAL STATUS EXAM: Oriented to herself and situation. Speech coherent, rapid at times, loud at times. Abstraction fair, computation impaired, language function intact, attention span short. Mood and affect remains labile, anxious, quite obsessive. LABORATORY DATA: Reviewed. IMPRESSION: Unchanged from initial note. PLAN: Luvox has been increased to 100 mg a day. Continue Seroquel, trazodone, along with Zyprexa p.r.n. Depakote has been added 125 mg b.i.d. as a mood stabilizer. We will follow labs level. Adjust as clinically indicated. JESSICA BRANCH MD DR: HAYDEN/rm JOB#: [id number] / [id number]
--- NOTE | 2019-06-27 00:21 | PN ---
DATE: 06/16/2019 SUBJECTIVE: The patient denies any new medical or neurological complaints. She denies headaches, visual disturbances, nausea, vomiting, chest pain, shortness of breath or palpitation. The patient continued to have intermittent suicidal ideation, but she appears to be anxious, paranoia and depressed. OBJECTIVE: GENERAL: Well-developed, well-nourished female, not in acute distress. VITAL SIGNS: Blood pressure 134/73, respiratory rate 18, pulse is 81 and regular, temperature 97.1, oxygen saturation 96% on room air. HEENT: Normocephalic, atraumatic, otherwise unremarkable. NECK: Supple. Negative for carotid bruit, lymphadenopathy or thyromegaly. LUNGS: Clear to A and P. CARDIOVASCULAR: Regular rate and rhythm, normal S1, S2. ABDOMEN: Soft. Bowel sounds positive. EXTREMITIES: Negative for cyanosis, clubbing or edema. NEUROLOGICAL EXAM: Mental Status: The patient is alert and oriented to herself and situation. Speech is fluent. There is no language dysfunction. Memory, judgment, and abstracting thinking are fair. The patient denies hallucination or delusion. Cranial nerves are intact. No focal motor or sensory deficit. Strength was 4/5 throughout. Deep tendon reflexes were symmetric and hypoactive with absent Achilles responses. Gait: The patient uses a walker for ambulation. IMPRESSION: 1. History of traumatic head injuries with stroke without significant focal neurological deficits. 2. Difficulty to walk and tendency to fall. She uses a walker for ambulation. 3. Multiple medical problems include hypertension and hyperlipidemia. 4. Multiple psychiatric problems include depression, anxiety, obsessive compulsive disorder and intermittent suicidal ideation. RECOMMENDATIONS: We will continue with current medical and psychiatric care. M Nena SYKES MD DR: CHAVA/rm JOB#: [id number] / [id number]
--- NOTE | 2019-06-27 00:23 | PN ---
DATE: 06/14/2019 SUBJECTIVE: The patient denies any new medical or neurological complaints. She has not had any falls since admission; however, she has been anxious and still has suicidal ideations and paranoia. OBJECTIVE: GENERAL: Well-developed, well-nourished female, not in acute distress. VITAL SIGNS: Blood pressure 121/76, respiratory rate 18, pulse is 75, oxygen saturation 95%, temperature 98. HEENT: Normocephalic, atraumatic, otherwise unremarkable. NECK: Supple. Negative for carotid bruit, lymphadenopathy or thyromegaly. LUNGS: Clear to A and P. CARDIOVASCULAR: Regular rate and rhythm, normal S1, S2. ABDOMEN: Soft. Bowel sounds positive. EXTREMITIES: Negative for cyanosis, clubbing or pitting edema. NEUROLOGICAL: The patient is alert and oriented to herself. Speech is fluent. There is no language dysfunction. Judgment and abstracting thinking are fair. The patient denies hallucination or delusion. Cranial nerves are grossly intact. No focal motor or sensory deficit. The strength is 4/5 throughout. Sensory examination revealed normal pinprick and light touch senses throughout. Deep tendon reflexes were symmetric and hypoactive with absent Achilles responses. Gait: The patient uses a walker for ambulation. IMPRESSION: 1. History of stroke without significant focal deficit; however, the patient has difficulty with walking and she uses a walker for ambulation. 2. History of traumatic brain injuries. 3. Multiple medical problems include hypertension and hyperlipidemia. 4. Multiple psychiatric problems include major depressions, suicidal ideation and history of suicidal attempt, obsessive compulsive disorder, and history of intermittent psychotic features. RECOMMENDATIONS: 1. Continue with current medical and psychiatric care. 2. Physical therapy evaluation. M Nena SYKES MD DR: CHAVA/mr JOB#: [id number] / [id number]
--- NOTE | 2019-06-27 03:49 | NUR ---
Last evening pt was in day room and was compliant with meds. At times she has repetitive speech and singing at times.
[2019-06-27 06:28] VITALS: BP 122/78
[2019-06-27 07:05] LABS: HEMATOCRIT 38.4 % (36.0-47.0); HEMOGLOBIN 12.5 g/dL (12.0-15.5); RED BLOOD COUNT 4.41 x10^6/uL (3.50-5.40); RED CELL DISTRIBUTION WIDTH 14.7 % (11.5-14.5); WHITE BLOOD COUNT 5.9 x10^3/uL (4.0-11.0)
[2019-06-27 07:14] LABS: ALBUMIN 3.3 g/dL (3.4-5.0); ALBUMIN/GLOBULIN RATIO 0.9 (1.0-1.7); ALK PHOS 91 U/L (46-116); ALT (SGPT) 21 U/L (14-59); ANION GAP 7 (6-14); AST (SGOT) 13 U/L (15-37); BLOOD UREA NITROGEN 20 mg/dL (7-20); BUN/CREATININE RATIO 20 (6-20); CALCIUM 9.4 mg/dL (8.5-10.1); CARBON DIOXIDE 31 mmol/L (21-32); CHLORIDE 104 mmol/L (98-107); GFR 53.5; GLUCOSE 85 mg/dL (70-99); POTASSIUM 4.1 mmol/L (3.5-5.1); SODIUM 142 mmol/L (136-145); TOTAL BILIRUBIN 0.4 mg/dL (0.2-1.0); TOTAL PROTEIN 6.9 g/dL (6.4-8.2)
[2019-06-27 07:17] LABS: VAL ACID 24 mcg/mL (50-100)
[2019-06-27 08:09] VITALS: BP 136/83
[2019-06-27] MEDS: DOCUSATE SODIUM 100 MG CAPSULE PO SCH (08:11)
[2019-06-27] MEDS: OMEGA-3 FATTY ACIDS/FISH OIL 1,000 MG CAPSULE. PO SCH (08:11)
[2019-06-27] MEDS: CALCIUM CARBONATE 500 MG TABLET PO SCH ×2 (08:11→20:04)
[2019-06-27] MEDS: LOSARTAN 50 MG TABLET. PO SCH (08:11)
[2019-06-27] MEDS: ASPIRIN ENTERIC COATED 81 MG TABLET.DR. PO SCH (08:11)
[2019-06-27] MEDS: POLYETHYLENE GLYCOL 3350 17 GM PACKET. PO SCH (08:11)
[2019-06-27] MEDS: APIXABAN 5 MG TABLET. PO SCH ×2 (08:11→20:04)
[2019-06-27] MEDS: DIVALPROEX 125 MG CAP.SPRINK PO SCH ×2 (08:11→20:03)
--- NOTE | 2019-06-27 09:15 | NUR ---
WEEKLY NOTE: Pt Ashlyn sanchez, pt son Juan and pt sister participated in treatment team. Pt family reports that they feel that pt is significantly better in that she is less animated when she gets upset. The family report that pt has always been "a cry baby". But their greatest concern is pt increased anxiety, especially at night, and her impulsivity. Pt is eating roughly 50-75% of meals and sleeping on average 8-10 hours a night. Pt VPA was taken this morning and was 24. Pt Depakote will be increased from 125mg BID to 125mg q AM and 250mg q HS with labs in 3 days. At this time, pt will look towards discharging on Monday. SW to follow up with all parties to finalize discharge plans.
--- NOTE | 2019-06-27 09:17 | NUR ---
WEEKLY ACTIVITY THERAPY NOTE Date of Admission: 06/11/2019 Date of AT Assessment: 06/14/2019 Goal aimed: to increase stress management skills Initial goal: Pt. will participate in all relaxation activities offered. Weekly progress towards goal: did not achieve, 1/3 relaxation groups Group participation level: 1 min, 2 mod, 1 full (min in relaxation activity) Weekly highlights: fully engaged with puzzle on Monday Behaviors observed: sleeping often, wandering, anxious moments-more in afternoon, minimal interest Plan: no change to goal Beneficial adaptations: invitations to group, 1:1 support to engage
--- NOTE | 2019-06-27 10:30 | NUR ---
Nursing Note Pt pleasantly confused, has repetitive speech and gets scared when being touched, required repeated instructions and reinforcement to take her medications however compliant. No aggression. No agitation. Denies SI.
--- NOTE | 2019-06-27 15:22 | NUR ---
Nursing Note Pt became agitated in the day room repeatedly yelling 'I'm a mess! This is too much, too much noise!" and is displaying increased anxiety; PRN medications provided per eMAR.
[2019-06-27 16:11] VITALS: BP 135/83
--- NOTE | 2019-06-27 16:29 | TX PLAN ---
Interdisciplinary Tx Plan Admission Information Jun 11, 2019 at 19:22 Legal Status (on Admission): Voluntary DPOA/Guardian Name: Ashlyn Chacon Contact Other Contact Name: Nader Mauckport Other Contact Verified Code Status: Full Code Allergies: Coded Allergies: No Known Drug Allergies (Unverified , 06/11/19) Diagnoses Primary Diagnosis: MDD Reasons for Admission: Suicidal attempt, Anxiety/Panic, Suicidal ideation, Poor impulse control Problem in Patient's Words: She has had a recent increase in behaviors without any precipitating events. Additional Admission Comments: According to the intake, pt has increased anxiety, outbursts, tearfulness, screaming for help, SI thoughts and attempts (tried to jump out of the car and throw self-down the stairs) labile during telepsych evaluation. Problems Active Problems: Anxiety Mood lability Ruminating thoughts Intrusive Inactive Problems: Medication compliants Denial of SI thoughts/attempts Pt Strengths/Limitations Ability for [place]: Poor Cognitive Functioning/Ability: Fair Communication Skills/Ability: Fair Financial Resources: Fair Insight/Judgement: Poor Intellectual Ability: Fair Physical Health: Poor Social Skills: Fair Stability in Family: Good Stability in School/Work: Poor Verbal Skills: Fair Discharge Criteria Discharge Criteria: Able meet basic life need, Adequate arrangements @DC, Verbal commit aftercare, Improved behavior, Improved mood/thought Preliminary Discharge Plan Preliminary DC Plan: Current Living Arrange. Special Precautions Fall Risk: Low Initial D/C Plan Pt [facility] plan [facility] Identified Discharge Needs: Pt will need more mental health services (e.g. psychiatry, counseling and possible case management) Currently Utilized Resources Currently Utilized Resources/P: Has Primary Care Physician Referrals Community Resources: Mental health resources for psychiatry, counseling and case management Identified Problems/Hx/Goals Objectives/Short-Term Goals Short Term Goals: Dec. Anxiety/Panic, Dec. Outbursts, Medication Stabilization, No Suicidal/Kenan. ideation, Promote Coping Skill Short Term Goals in Patient's: Medication management to decrease her depression and anxiety Interventions/Frequency Staff Interventions/Frequency&: Psychiatrist to assess pt at least 3x per week. Floor Person to assess pt at least 2x per week. Nursing to complete 15 minute checks daily. Encourage pt to partipate in group activities/sit in the day room. History Vocational History: Pt worked at [employer] in the [employer] for many years. Pt just retired in 2018 since she had her CVA and could no longer work. 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 Education: Pt graduated high school and has some college credits. Community Follow-up Appt with primary care physician at discharge Community Provider/Family Inpu: Concerns that she has the beginning stages of dementia. Potential for neurologist. 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 Pt family reports that they feel that pt is significantly better in that she is less animated when she gets upset. The family report that pt has always been "a cry baby". But their greatest concern is pt increased anxiety, especially at night, and her impulsivity. Pt is eating roughly 50-75% of meals and sleeping on average 8-10 hours a night. Pt VPA was taken this morning and was 24. Pt Depakote will be increased from 125mg BID to 125mg q AM and 250mg q HS with labs in 3 days. At this time, pt will look towards discharging on Monday. SW to follow up with all parties to finalize discharge plans. ARABELLA WASHINGTON Jun 27, 2019 16:29
[2019-06-27] MEDS: QUEtiapine 25 MG TABLET. PO SCH ×2 (17:16→20:04)
--- NOTE | 2019-06-27 19:38 | PN ---
DATE: 06/26/2019 PSYCHIATRIC PROGRESS NOTE This late entry 06/26/2019 covers elements not covered in my initial note. SUBJECTIVE: I met with the patient evening of 06/26/2019. Per nursing report, patient continues to have a labile mood and frequent crying spells, gets anxious, fearful, more so in the evening, slept 5-1/2 hours. Labs on the valproic acid level are awaited. REVIEW OF SYSTEMS: Ambulation impaired with walker. No CV, , pulmonary, eye, ENT system symptoms on review. MENTAL STATUS EXAM: Reasonably oriented. Speech is coherent, can be rapid at times, consequent to anxiety. Abstraction fair, computation impaired, language function intact, attention span short. Mood and affect remain somewhat anxious, labile. LABORATORY DATA: Reviewed. IMPRESSION: Unchanged from initial note. PLAN: No change from initial note. We will meet with the family at treatment team meeting on 06/27/2019 and discussed her history, progress, current psychotropics. JESSICA BRANCH MD DR: HAYDEN/rm JOB#: [id number] / [id number]
[2019-06-27] MEDS: ATORVASTATIN CALCIUM 20 MG TABLET PO SCH (20:03)
[2019-06-27] MEDS: traZODone 50 MG TABLET. PO SCH (20:04)
--- NOTE | 2019-06-27 20:51 | NUR ---
Nursing note: Assumed care of pt in her room where she was lying in bed but awake. Pt was very alert and compliant, pleasantly conversive and even talked about how she felt her dementia was progressing. Pt denies SI and denied pain at this time.
--- NOTE | 2019-06-27 21:00 | PDOC ---
Exam Note: Zelalem Note: Please also refer to the separate dictated note~for this date of service dictated separately.~Patient seen individually. Discussed the patient with Nursing staff reviewed the chart.~Reviewed interim history and current functioning. Reviewed vital signs,~Labs/ Radiology~and current medications noted below. Continue current treatment with the changes noted in the dictated addendum note Assessment: Vital Signs/I&O: Vital Signs Date Time Temp Pulse Resp B/P (MAP) Pulse Ox O2 Delivery O2 Flow Rate FiO2 06/27/19 16:11 98.0 74 18 135/83 (100) 94 06/27/19 06:28 Room Air I & O 06/26/19 06/26/19 06/27/19 15:00 23:00 07:00 Intake Total 960 ml 580 ml Balance 960 ml 580 ml Labs: Laboratory Tests Test 06/27/19 06:25 White Blood Count 5.9 x10^3/uL (4.0-11.0) Red Blood Count 4.41 x10^6/uL (3.50-5.40) Hemoglobin 12.5 g/dL (12.0-15.5) Hematocrit 38.4 % (36.0-47.0) Mean Corpuscular Volume 87 fL (79-100) Mean Corpuscular Hemoglobin 28 pg (25-35) Mean Corpuscular Hemoglobin Concent 33 g/dL (31-37) Red Cell Distribution Width 14.7 % (11.5-14.5) H Platelet Count 179 x10^3/uL (140-400) Sodium Level 142 mmol/L (136-145) Potassium Level 4.1 mmol/L (3.5-5.1) Chloride Level 104 mmol/L (98-107) Carbon Dioxide Level 31 mmol/L (21-32) Anion Gap 7 (6-14) Blood Urea Nitrogen 20 mg/dL (7-20) Creatinine 1.0 mg/dL (0.6-1.0) Estimated GFR (Cockcroft-Gault) 53.5 BUN/Creatinine Ratio 20 (6-20) Glucose Level 85 mg/dL (70-99) Calcium Level 9.4 mg/dL (8.5-10.1) Total Bilirubin 0.4 mg/dL (0.2-1.0) Aspartate Amino Transferase (AST) 13 U/L (15-37) L Alanine Aminotransferase (ALT) 21 U/L (14-59) Alkaline Phosphatase 91 U/L (46-116) Total Protein 6.9 g/dL (6.4-8.2) Albumin 3.3 g/dL (3.4-5.0) L Albumin/Globulin Ratio 0.9 (1.0-1.7) L Valproic Acid Level 24 mcg/mL (50-100) L Valproic Acid Last Dose Date 06/24/19 Valproic Acid Last Dose Time 0900 Current Medications: Meds: Current Medications Medications (Trade) Dose Ordered Sig/Pete Route PRN Reason Start Time Stop Time Status Last Admin Dose Admin Divalproex Sodium (Depakote Sprinkles) 250 mg HS PO 06/27/19 21:00 06/27/19 20:03 I have reviewed the current psychotropics carefully including drug interactions. Risk benefit ratio favors no change other than as noted in my dictated progress note. Diagnosis: Problems: (1) Suicidal ideation (2) Medical clearance for psychiatric admission (3) Anxiety disorder (4) Major depressive disorder, recurrent episode (5) Impulse control disorder (6) Panic disorder with agoraphobia and severe panic attacks JESSICA BRANCH MD Jun 27, 2019 21:00
[2019-06-28 06:14] VITALS: BP 162/77
[2019-06-28] MEDS: LOSARTAN 50 MG TABLET. PO SCH (07:54)
[2019-06-28] MEDS: APIXABAN 5 MG TABLET. PO SCH ×2 (07:54→19:36)
[2019-06-28] MEDS: DIVALPROEX 125 MG CAP.SPRINK PO SCH ×2 (07:54→19:36)
[2019-06-28] MEDS: POLYETHYLENE GLYCOL 3350 17 GM PACKET. PO SCH (07:54)
[2019-06-28] MEDS: OMEGA-3 FATTY ACIDS/FISH OIL 1,000 MG CAPSULE. PO SCH (07:55)
[2019-06-28] MEDS: ASPIRIN ENTERIC COATED 81 MG TABLET.DR. PO SCH (07:55)
[2019-06-28] MEDS: CALCIUM CARBONATE 500 MG TABLET PO SCH ×2 (07:55→19:36)
[2019-06-28] MEDS: DOCUSATE SODIUM 100 MG CAPSULE PO SCH (07:55)
--- NOTE | 2019-06-28 10:47 | NUR ---
Pt has been restless, attention seeking and making repetitive statements all morning. Pt easily startled. Pt up and down throughout breakfast. Compliant with whole medications.
[2019-06-28 15:55] VITALS: BP 145/79
[2019-06-28] MEDS: QUEtiapine 25 MG TABLET. PO SCH ×2 (16:16→19:36)
--- NOTE | 2019-06-28 16:44 | NUR ---
[facility] Social Work Discharge Planning Form Patient Name PATTI HERNANDEZ Admit Date: 06/11/2019 DISCHARGE PLAN Discharge Destination: Pt to discharge back to [facility] Assessment: N/A Level II Assessment: N/A Transportation: Transportation at this time is TBD if will be done by facility or family. Special Instructions/Notes: Please fax discharge orders and medication list the to fax numbers listed below. DISCHARGE TO FACILITY Facility: [facility] Address: [address] [place] [address] Contact Name: Sydni KimEDUARDO): Contact Name: Please ask for the nurse caring for pt upon admission. PCP: Dr. Gibbs @ [facility] Address: [address]; [place] [address]
[2019-06-28] MEDS: ATORVASTATIN CALCIUM 20 MG TABLET PO SCH (19:35)
[2019-06-28] MEDS: traZODone 50 MG TABLET. PO SCH (19:36)
--- NOTE | 2019-06-28 20:28 | NUR ---
Nursing note: Assumed care of pt in her room. She had been pacing the halls, repeating please help me. She was anxious and worried about why she is so anxious. She is concerned that her meds are making her more anxious. Pt is alert. pleasant, and interactive. No c/o pain.
--- NOTE | 2019-06-28 21:00 | PDOC ---
Exam Note: Zelalem Note: Please also refer to the separate dictated note~for this date of service dictated separately.~Patient seen individually. Discussed the patient with Nursing staff reviewed the chart.~Reviewed interim history and current functioning. Reviewed vital signs,~Labs/ Radiology~and current medications noted below. Continue current treatment with the changes noted in the dictated addendum note Assessment: Vital Signs/I&O: Vital Signs Date Time Temp Pulse Resp B/P (MAP) Pulse Ox O2 Delivery O2 Flow Rate FiO2 06/28/19 15:55 97.2 75 18 145/79 (101) 97 06/27/19 06:28 Room Air I & O 06/27/19 06/27/19 06/28/19 15:00 23:00 07:00 Intake Total 720 ml 240 ml 240 ml Balance 720 ml 240 ml 240 ml Current Medications: Meds: Current Medications Medications (Trade) Dose Ordered Sig/Pete Route PRN Reason Start Time Stop Time Status Last Admin Dose Admin Divalproex Sodium (Depakote Sprinkles) 125 mg DAILY PO 06/28/19 09:00 06/28/19 07:54 Divalproex Sodium (Depakote Sprinkles) 250 mg HS PO 06/27/19 21:00 06/28/19 19:36 I have reviewed the current psychotropics carefully including drug interactions. Risk benefit ratio favors no change other than as noted in my dictated progress note. Diagnosis: Problems: (1) Suicidal ideation (2) Medical clearance for psychiatric admission (3) Anxiety disorder (4) Major depressive disorder, recurrent episode (5) Impulse control disorder (6) Panic disorder with agoraphobia and severe panic attacks JESSICA BRANCH MD Jun 28, 2019 21:00
--- NOTE | 2019-06-28 22:53 | PN ---
DATE: 06/27/2019 PSYCHIATRIC PROGRESS NOTE This late entry 06/27/2019 covers elements not covered in my initial note. SUBJECTIVE: I met with the patient evening of 06/27/2019. The patient was also staffed at a treatment team meeting with the entire team in the morning and her daughter, Gertrudis and another daughter attended the conference together with the son, Jl. She slept for 3/4 hours previous night. Family gave a very coherent history that she used to be called November, the cry baby. Reportedly, she won a [employer] pageant and during that time, she was crying as well. Much of it was emotionally driven rather than being depressed. REVIEW OF SYSTEMS: Ambulation impaired with walker. No CV, , pulmonary, eye, ENT system symptoms on review. MENTAL STATUS EXAMINATION: Reasonably oriented. Speech coherent, can be loud, rapid at times. Abstraction fair, computation impaired, language function intact, attention span short. Mood and affect remain somewhat labile. LABORATORY DATA: Valproic acid level of 24, subtherapeutic. Increase Depakote Sprinkles to 125 mg b.i.d. and an extra 125 mg in the evening. Check CBC, CMP, valproic acid level in 3 days. Continue rest unchanged including Luvox, Seroquel, trazodone at night and Zyprexa p.r.n. JESSICA BRANCH MD DR: HAYDEN/rm JOB#: [id number] / [id number]
[2019-06-29] MEDS ORDERED: CALC500T31 PO (00:50)
[2019-06-29] MEDS ORDERED: CHOL500021 PO (00:51)
[2019-06-29] MEDS ORDERED: DIVA125C2 PO ×2 (00:51→00:52)
[2019-06-29] MEDS ORDERED: DOCU100C28 PO (00:53)
[2019-06-29] MEDS ORDERED: MAGN30OR PO (00:55)
[2019-06-29] MEDS ORDERED: METH28OI2 TP (00:56)
[2019-06-29] MEDS ORDERED: MAGN24003 PO (00:56)
[2019-06-29] MEDS ORDERED: OLAN5TAB5 PO (00:57)
[2019-06-29] MEDS ORDERED: POLY17PO5 PO (01:02)
[2019-06-29] MEDS ORDERED: OMEG1CAP50 PO (01:02)
[2019-06-29] MEDS ORDERED: QUET25TA5 PO ×2 (01:03→01:05)
[2019-06-29] MEDS ORDERED: FLUV100C PO (01:07)
[2019-06-29] MEDS ORDERED: TRAZ-120 PO (01:08)
[2019-06-29 05:35] VITALS: BP 138/62
[2019-06-29 05:36] VITALS: BP 160/74
[2019-06-29] MEDS: POLYETHYLENE GLYCOL 3350 17 GM PACKET. PO SCH (08:57)
[2019-06-29] MEDS: LOSARTAN 50 MG TABLET. PO SCH (08:58)
[2019-06-29] MEDS: APIXABAN 5 MG TABLET. PO SCH ×2 (08:58→19:40)
[2019-06-29] MEDS: CALCIUM CARBONATE 500 MG TABLET PO SCH ×2 (08:58→19:40)
[2019-06-29] MEDS: DIVALPROEX 125 MG CAP.SPRINK PO SCH ×2 (08:59→19:40)
[2019-06-29] MEDS: OMEGA-3 FATTY ACIDS/FISH OIL 1,000 MG CAPSULE. PO SCH (08:59)
[2019-06-29] MEDS: ASPIRIN ENTERIC COATED 81 MG TABLET.DR. PO SCH (08:59)
[2019-06-29] MEDS: DOCUSATE SODIUM 100 MG CAPSULE PO SCH (08:59)
[2019-06-29] MEDS: CHOLECALCIFEROL (VITAMIN D3) 50,000 UNIT CAPSULE PO SCH (09:02)
--- NOTE | 2019-06-29 15:52 | NUR ---
Patient in dining room when assumed care. Patient refused medications but eventually took them in pudding. Patient non compliant with assessment but applied after breakfast. No further behaviors noted at this time. Will continue to monitor.
[2019-06-29 15:59] VITALS: BP 130/79
[2019-06-29] MEDS: QUEtiapine 25 MG TABLET. PO SCH ×2 (17:13→19:40)
[2019-06-29] MEDS: ATORVASTATIN CALCIUM 20 MG TABLET PO SCH (19:39)
[2019-06-29] MEDS: traZODone 50 MG TABLET. PO SCH (19:40)
--- NOTE | 2019-06-29 20:29 | NUR ---
Nursing note: Assumed care of pt in the day room where she was calm and pleasant, visiting with peers, compliant with meds and assessment. Not as confused tonight. No c/o pain. When asked how she was tonight she replied, "I am in no pain, I am able to walk, and I am able to eat so I guess I am good."
--- NOTE | 2019-06-29 22:30 | PDOC ---
Exam Note: Zelalem Note: Please also refer to the separate dictated note~for this date of service dictated separately.~Patient seen individually. Discussed the patient with Nursing staff reviewed the chart.~Reviewed interim history and current functioning. Reviewed vital signs,~Labs/ Radiology~and current medications noted below. Continue current treatment with the changes noted in the dictated addendum note Assessment: Vital Signs/I&O: Vital Signs Date Time Temp Pulse Resp B/P (MAP) Pulse Ox O2 Delivery O2 Flow Rate FiO2 06/29/19 15:59 97.4 88 18 130/79 (96) 98 06/27/19 06:28 Room Air I & O 06/28/19 06/28/19 06/29/19 15:00 23:00 07:00 Intake Total 1080 ml 720 ml Balance 1080 ml 720 ml Current Medications: I have reviewed the current psychotropics carefully including drug interactions. Risk benefit ratio favors no change other than as noted in my dictated progress note. Diagnosis: Problems: (1) Suicidal ideation (2) Medical clearance for psychiatric admission (3) Anxiety disorder (4) Major depressive disorder, recurrent episode (5) Impulse control disorder (6) Panic disorder with agoraphobia and severe panic attacks JESSICA BRANCH MD Jun 29, 2019 22:30
[2019-06-30 05:49] VITALS: BP 135/75
[2019-06-30 07:16] LABS: BASO % 1 % (0-3); EOS # 0.2 x10^3/uL (0.0-0.7); EOS % 4 % (0-3); HEMATOCRIT 35.3 % (36.0-47.0); HEMOGLOBIN 11.5 g/dL (12.0-15.5); LYMPH # 1.5 x10^3/uL (1.0-4.8); LYMPH % 33 % (24-48); MEAN CORPUSCULAR HEMOGLOBIN 28 pg (25-35); MEAN CORPUSCULAR HGB CONC 33 g/dL (31-37); MEAN CORPUSCULAR VOLUME 87 fL (79-100); MONO # 0.6 x10^3/uL (0.0-1.1); MONO % 13 % (0-9); NEUT # 2.2 x10^3uL (1.8-7.7); NEUT % 50 % (31-73); PLATELET COUNT 160 x10^3/uL (140-400); RED BLOOD COUNT 4.06 x10^6/uL (3.50-5.40); RED CELL DISTRIBUTION WIDTH 15.3 % (11.5-14.5); WHITE BLOOD COUNT 4.5 x10^3/uL (4.0-11.0)
[2019-06-30 07:30] LABS: ALK PHOS 83 U/L (46-116); ALT (SGPT) 18 U/L (14-59); ANION GAP 6 (6-14); AST (SGOT) 12 U/L (15-37); BLOOD UREA NITROGEN 26 mg/dL (7-20); BUN/CREATININE RATIO 26 (6-20); CALCIUM 8.8 mg/dL (8.5-10.1); CARBON DIOXIDE 29 mmol/L (21-32); CHLORIDE 106 mmol/L (98-107); GFR 53.5; GLUCOSE 87 mg/dL (70-99); POTASSIUM 4.1 mmol/L (3.5-5.1); SODIUM 141 mmol/L (136-145); TOTAL BILIRUBIN 0.2 mg/dL (0.2-1.0); TOTAL PROTEIN 6.1 g/dL (6.4-8.2)
[2019-06-30 07:34] LABS: VAL ACID 36 mcg/mL (50-100)
[2019-06-30] MEDS: ASPIRIN ENTERIC COATED 81 MG TABLET.DR. PO SCH (07:48)
[2019-06-30] MEDS: LOSARTAN 50 MG TABLET. PO SCH (07:49)
[2019-06-30] MEDS: OMEGA-3 FATTY ACIDS/FISH OIL 1,000 MG CAPSULE. PO SCH (07:50)
[2019-06-30] MEDS: POLYETHYLENE GLYCOL 3350 17 GM PACKET. PO SCH (07:50)
[2019-06-30] MEDS: APIXABAN 5 MG TABLET. PO SCH ×2 (07:50→20:11)
[2019-06-30] MEDS: DIVALPROEX 125 MG CAP.SPRINK PO SCH ×2 (07:50→20:12)
[2019-06-30] MEDS: CALCIUM CARBONATE 500 MG TABLET PO SCH ×2 (07:50→20:11)
[2019-06-30] MEDS: DOCUSATE SODIUM 100 MG CAPSULE PO SCH (07:51)
[2019-06-30 16:05] VITALS: BP 148/80
--- NOTE | 2019-06-30 16:28 | NUR ---
Assumed care when patient was in the dining m[place]ett. Patient compliant with medications and assessment this morning. Patient repetitive but pleasant this am. Denies SI. No PRN medications given. Will continue to monitor.
[2019-06-30] MEDS: QUEtiapine 25 MG TABLET. PO SCH ×2 (17:23→20:13)
[2019-06-30] MEDS: traZODone 50 MG TABLET. PO SCH (20:12)
[2019-06-30] MEDS: ATORVASTATIN CALCIUM 20 MG TABLET PO SCH (20:12)
--- NOTE | 2019-06-30 20:49 | PDOC ---
Exam Note: Zelalem Note: Please also refer to the separate dictated note~for this date of service dictated separately.~Patient seen individually. Discussed the patient with Nursing staff reviewed the chart.~Reviewed interim history and current functioning. Reviewed vital signs,~Labs/ Radiology~and current medications noted below. Continue current treatment with the changes noted in the dictated addendum note Assessment: Vital Signs/I&O: Vital Signs Date Time Temp Pulse Resp B/P (MAP) Pulse Ox O2 Delivery O2 Flow Rate FiO2 06/30/19 16:05 97.9 72 18 148/80 (102) 96 06/27/19 06:28 Room Air I & O 06/29/19 06/29/19 06/30/19 15:00 23:00 07:00 Intake Total 1140 ml 600 ml Balance 1140 ml 600 ml Labs: Laboratory Tests Test 06/30/19 07:05 White Blood Count 4.5 x10^3/uL (4.0-11.0) Red Blood Count 4.06 x10^6/uL (3.50-5.40) Hemoglobin 11.5 g/dL (12.0-15.5) L Hematocrit 35.3 % (36.0-47.0) L Mean Corpuscular Volume 87 fL (79-100) Mean Corpuscular Hemoglobin 28 pg (25-35) Mean Corpuscular Hemoglobin Concent 33 g/dL (31-37) Red Cell Distribution Width 15.3 % (11.5-14.5) H Platelet Count 160 x10^3/uL (140-400) Neutrophils (%) (Auto) 50 % (31-73) Lymphocytes (%) (Auto) 33 % (24-48) Monocytes (%) (Auto) 13 % (0-9) H Eosinophils (%) (Auto) 4 % (0-3) H Basophils (%) (Auto) 1 % (0-3) Neutrophils # (Auto) 2.2 x10^3uL (1.8-7.7) Lymphocytes # (Auto) 1.5 x10^3/uL (1.0-4.8) Monocytes # (Auto) 0.6 x10^3/uL (0.0-1.1) Eosinophils # (Auto) 0.2 x10^3/uL (0.0-0.7) Basophils # (Auto) 0.0 x10^3/uL (0.0-0.2) Sodium Level 141 mmol/L (136-145) Potassium Level 4.1 mmol/L (3.5-5.1) Chloride Level 106 mmol/L (98-107) Carbon Dioxide Level 29 mmol/L (21-32) Anion Gap 6 (6-14) Blood Urea Nitrogen 26 mg/dL (7-20) H Creatinine 1.0 mg/dL (0.6-1.0) Estimated GFR (Cockcroft-Gault) 53.5 BUN/Creatinine Ratio 26 (6-20) H Glucose Level 87 mg/dL (70-99) Calcium Level 8.8 mg/dL (8.5-10.1) Total Bilirubin 0.2 mg/dL (0.2-1.0) Aspartate Amino Transferase (AST) 12 U/L (15-37) L Alanine Aminotransferase (ALT) 18 U/L (14-59) Alkaline Phosphatase 83 U/L (46-116) Total Protein 6.1 g/dL (6.4-8.2) L Albumin 3.0 g/dL (3.4-5.0) L Albumin/Globulin Ratio 1.0 (1.0-1.7) Valproic Acid Level 36 mcg/mL (50-100) L Valproic Acid Last Dose Date 06/29/19 Valproic Acid Last Dose Time 2100 Current Medications: I have reviewed the current psychotropics carefully including drug interactions. Risk benefit ratio favors no change other than as noted in my dictated progress note. Diagnosis: Problems: (1) Suicidal ideation (2) Anxiety disorder (3) Major depressive disorder, recurrent episode (4) Impulse control disorder (5) Panic disorder with agoraphobia and severe panic attacks JESSICA BRANCH MD Jun 30, 2019 20:49
--- NOTE | 2019-06-30 22:00 | NUR ---
Patient is in her room for assessment and medication. She is disorganized, confused. Hesitant to take her medications but did take them with some encouragement. Repetitively verbalizing. Somewhat paranoid, asking "Are you trying to trick me?" and stating "I know you are all laughing at me." Able to be redirected. No agitation. Denies pain or discomfort. Denies SI.
[2019-07-01 06:01] VITALS: BP 139/73
--- NOTE | 2019-07-01 06:26 | PN ---
DATE: 06/28/2019 PSYCHIATRIC PROGRESS NOTE This late entry 06/28/2019 covers elements not covered in my initial note. SUBJECTIVE: I met with the patient evening of 06/28/2019. The patient slept 8-1/2 hours previous night per BENNIE Alanis. She has been repetitive, anxious, hyperverbal at times, speaking in a singsong voice, easily startled. REVIEW OF SYSTEMS: Ambulation is impaired with walker. No CV, , pulmonary, eye, ENT system symptoms on review. Reliability is poor at times. MENTAL STATUS EXAM: Oriented reasonably. Speech is coherent, rapid, loud at times, anxious, high pitched. Abstraction is fair. Computation is impaired. Language function is intact. Attention span short. She is quite anxious with some ongoing mood lability. No suicidal or homicidal ideation. LABORATORY DATA: Reviewed. IMPRESSION: Major depressive disorder with psychotic features; anxiety disorder, unspecified; rule out bipolar disorder, unspecified; obsessive compulsive disorder. Rest unchanged. PLAN: Continue psychotropics from initial note. Seroquel, Luvox along with Depakote, trazodone and Zyprexa as p.r.n., adjust further as clinically indicated. JESSICA BRANCH MD DR: HAYDEN/rm JOB#: [id number] / [id number]
[2019-07-01] MEDS: POLYETHYLENE GLYCOL 3350 17 GM PACKET. PO SCH (08:53)
[2019-07-01] MEDS: DOCUSATE SODIUM 100 MG CAPSULE PO SCH (08:54)
[2019-07-01] MEDS: CALCIUM CARBONATE 500 MG TABLET PO SCH ×2 (08:54→19:58)
[2019-07-01] MEDS: DIVALPROEX 125 MG CAP.SPRINK PO SCH ×2 (08:54→19:58)
[2019-07-01] MEDS: LOSARTAN 50 MG TABLET. PO SCH (08:54)
[2019-07-01] MEDS: ASPIRIN ENTERIC COATED 81 MG TABLET.DR. PO SCH (08:54)
[2019-07-01] MEDS: OMEGA-3 FATTY ACIDS/FISH OIL 1,000 MG CAPSULE. PO SCH (08:54)
[2019-07-01] MEDS: APIXABAN 5 MG TABLET. PO SCH ×2 (08:55→19:58)
--- NOTE | 2019-07-01 11:03 | NUR ---
Nursing Note Pt was in her room, pleasantly confused, anxious, and repeatedly yelling this morning. PRN given with morning meds as ordered. Denies SI. Pt calmed down on her own, took a nap, and in good spirits. Pt is currently in the day room participating in therapy.
--- NOTE | 2019-07-01 12:40 | NUR ---
SW attempted to contact MARCO ANTONIO Troy at [facility], to inform her of change in D/C plans for pt. Pt is getting another medication adjusted and SW will have to complete a concurrent review to ensure pt ability to stay on the unit. CHLOE will attempt to try Sydni back tomorrow AM.
--- NOTE | 2019-07-01 12:50 | NUR ---
CHLOE contacted pt dtr, Ashlyn, to discuss pt continued stay as her Depakote level did not come back as therapeutic. CHLOE discussed with Ashlyn what that means, the blood draws that will be completed and how it can affect continued stabilization of pt behaviors. Pt dtr just wants to make sure that pt is able to be maintained on her medications so that they can have her remain at [facility] and not have to move pt later down the road. CHLOE also let Ashlyn know that Syd[facility] left a voicemail over the weekend stating that they do not provide transportation. Either the family will have to do so on the time of discharge or CHLOE can set up a secured transport. Pt dtr will talk to her family about that to see if maybe 2 of them can pick pt up. With pt hx of attempting to jump out of the car, they feel that 2 transporters would be necessary; especially if family decides to do the transport versus a company. CHLOE will check in with Ashlyn at a later date and time to go over the lab results and potential date for discharge.
[2019-07-01 15:14] VITALS: BP 128/77
[2019-07-01] MEDS: QUEtiapine 25 MG TABLET. PO SCH ×2 (16:38→19:59)
[2019-07-01] MEDS: ATORVASTATIN CALCIUM 20 MG TABLET PO SCH (19:58)
[2019-07-01] MEDS: traZODone 50 MG TABLET. PO SCH (19:58)
--- NOTE | 2019-07-01 21:34 | PDOC ---
Exam Note: Zelalem Note: Please also refer to the separate dictated note~for this date of service dictated separately.~Patient seen individually. Discussed the patient with Nursing staff reviewed the chart.~Reviewed interim history and current functioning. Reviewed vital signs,~Labs/ Radiology~and current medications noted below. Continue current treatment with the changes noted in the dictated addendum note Assessment: Vital Signs/I&O: Vital Signs Date Time Temp Pulse Resp B/P (MAP) Pulse Ox O2 Delivery O2 Flow Rate FiO2 07/01/19 15:14 98.5 82 18 128/77 (94) 95 06/27/19 06:28 Room Air I & O 06/30/19 06/30/19 07/01/19 15:00 23:00 07:00 Intake Total 960 ml Balance 960 ml Current Medications: Meds: Current Medications Medications (Trade) Dose Ordered Sig/Pete Route PRN Reason Start Time Stop Time Status Last Admin Dose Admin Divalproex Sodium (Depakote Sprinkles) 250 mg DAILY PO 07/01/19 09:00 07/01/19 08:54 I have reviewed the current psychotropics carefully including drug interactions. Risk benefit ratio favors no change other than as noted in my dictated progress note. Diagnosis: Problems: (1) Suicidal ideation (2) Anxiety disorder (3) Major depressive disorder, recurrent episode (4) Impulse control disorder (5) Panic disorder with agoraphobia and severe panic attacks JESSICA BRANCH MD Jul 01, 2019 21:34
--- NOTE | 2019-07-01 23:48 | NUR ---
Nursing Note The patient was located in bed for her assessment and medication pass. The patient was compliant with her medication and took them whole. The patient was irritable during her assessment and initially refused to sit up to take her medication and allow this nurse complete the patient assessment. However the patient did comply. The patient is currently sleeping in her room.
--- NOTE | 2019-07-02 01:15 | PN ---
DATE: 06/29/2019 PSYCHIATRIC PROGRESS NOTE This late entry 06/29/2019 covers the elements not covered in my initial note. SUBJECTIVE: I met with the patient in the evening of 06/29/2019. The patient slept 7 hours previous night. She has continued to be quite anxious, obsessive with ongoing marked mood lability, somewhat hyperverbal in the morning. We will check labs in the morning of 06/30/2019 and reassess her psychotropics. REVIEW OF SYSTEMS: Ambulation impaired with walker. No CV, , pulmonary, eye system symptoms on review. She has vague somatic symptoms. MENTAL STATUS EXAM: Oriented to herself and situation. Speech is coherent, rapid at times high pitched at other times. Abstraction fair, computation impaired, language function intact, attention span short. Mood and affect remain somewhat anxious, labile. LABORATORY DATA: Reviewed. IMPRESSION: Unchanged from initial note. PLAN: No change from initial note. JESSICA BRANCH MD DR: HAYDEN/rm JOB#: [id number] / [id number]
--- NOTE | 2019-07-02 01:20 | PN ---
DATE: 06/30/2019 PSYCHIATRIC PROGRESS NOTE This late entry, 06/30, covers elements not covered in my initial note. SUBJECTIVE: I met with the patient evening of 06/30. Per BENNIE Reyna, the patient slept 6 hours previous night. She has been anxious, obsessive at times. Valproic acid level is 36 on Depakote 250 mg at bedtime. We will increase this to 250 mg twice a day. Check CBC, CMP, valproic acid level in 3 days and postpone her discharge until we can get a Valproic acid level therapeutic on account of the ongoing mood lability. REVIEW OF SYSTEMS: Ambulation impaired with walker. No CV, , pulmonary, eye system symptoms on review. MENTAL STATUS EXAM: Oriented to herself and situation. Speech coherent, can be rapid at times, somewhat anxious, high pitched. Abstraction fair, computation impaired, language function intact, attention span short. Mood and affect remains somewhat anxious, obsessive. LABORATORY DATA: Reviewed. IMPRESSION: Unchanged from initial note. PLAN: No change from initial note. JESSICA BRANCH MD DR: HAYDEN/rm JOB#: [id number] / [id number]
[2019-07-02 05:34] VITALS: BP 145/77
[2019-07-02] MEDS: DIVALPROEX 125 MG CAP.SPRINK PO SCH ×2 (08:52→20:23)
[2019-07-02] MEDS: APIXABAN 5 MG TABLET. PO SCH ×2 (08:53→20:23)
[2019-07-02] MEDS: OMEGA-3 FATTY ACIDS/FISH OIL 1,000 MG CAPSULE. PO SCH (08:53)
[2019-07-02] MEDS: CALCIUM CARBONATE 500 MG TABLET PO SCH ×2 (08:53→20:24)
[2019-07-02] MEDS: ASPIRIN ENTERIC COATED 81 MG TABLET.DR. PO SCH (08:53)
[2019-07-02] MEDS: LOSARTAN 50 MG TABLET. PO SCH (08:53)
[2019-07-02] MEDS: DOCUSATE SODIUM 100 MG CAPSULE PO SCH (08:53)
[2019-07-02] MEDS: POLYETHYLENE GLYCOL 3350 17 GM PACKET. PO SCH (08:55)
--- NOTE | 2019-07-02 13:58 | NUR ---
Pt expressed concern to this RN this morning about not getting good sleep due to the door banging at night across the hallway, which is where the entrance to the nurses station is. Also complained that her roommate wakes her in the middle of the night getting up. Offered to November to have another room away from the nurses station, attempted to show patient the room but patient said, "NO! THIS IS MY ROOM! THIS IS MY ROOM!" Allowed patient to go back to room.
[2019-07-02 15:55] VITALS: BP 150/84
[2019-07-02] MEDS: QUEtiapine 25 MG TABLET. PO SCH ×2 (16:36→20:23)
[2019-07-02] MEDS: traZODone 50 MG TABLET. PO SCH (20:23)
[2019-07-02] MEDS: ATORVASTATIN CALCIUM 20 MG TABLET PO SCH (20:24)
--- NOTE | 2019-07-02 21:49 | PDOC ---
Exam Note: Zelalem Note: Please also refer to the separate dictated note~for this date of service dictated separately.~Patient seen individually. Discussed the patient with Nursing staff reviewed the chart.~Reviewed interim history and current functioning. Reviewed vital signs,~Labs/ Radiology~and current medications noted below. Continue current treatment with the changes noted in the dictated addendum note Assessment: Vital Signs/I&O: Vital Signs Date Time Temp Pulse Resp B/P (MAP) Pulse Ox O2 Delivery O2 Flow Rate FiO2 07/02/19 15:55 97.8 83 20 150/84 (106) 96 06/27/19 06:28 Room Air I & O 07/01/19 07/01/19 07/02/19 15:00 23:00 07:00 Intake Total 200 ml 340 ml Balance 200 ml 340 ml Current Medications: I have reviewed the current psychotropics carefully including drug interactions. Risk benefit ratio favors no change other than as noted in my dictated progress note. Diagnosis: Problems: (1) Suicidal ideation (2) Anxiety disorder (3) Major depressive disorder, recurrent episode (4) Impulse control disorder (5) Panic disorder with agoraphobia and severe panic attacks JESSICA BRANCH MD Jul 02, 2019 21:49
--- NOTE | 2019-07-03 02:31 | PN ---
DATE: 07/01/2019 This late entry 07/01/2019 covers elements not covered in my initial note. SUBJECTIVE: I met with the patient in the evening at length in her room. Per BENNIE Hunt, the patient slept 7-1/2 hours previous night. She gets anxious, restless, agitated, had Zyprexa at 9:00 a.m., and less anxious later in the day. REVIEW OF SYSTEMS: Ambulation impaired with walker. No CV, , pulmonary, eye system symptoms on review. She has vague somatic symptoms. MENTAL STATUS EXAMINATION: The patient is oriented to herself and situation. Speech is coherent and rapid at times. Abstraction fair, computation impaired, language function intact, and attention span short. Mood and affect somewhat anxious, labile, but improved. LABORATORY DATA: Reviewed. IMPRESSION: Unchanged from initial note. Continue psychotropics mentioned in initial note. MAN Beverley BRANCH MD DR: HAYDEN/rm JOB#: [id number] / [id number]
--- NOTE | 2019-07-03 03:46 | NUR ---
Nursing Note The patient was located in her room for her assessment and medication pass. The patient took her medications whole and was appropriate during her assessment. The patient did display repetitive speech and became loud during conversation but was easily redirected. The patient is currently awake in the day room.
[2019-07-03 06:34] VITALS: BP 180/84
[2019-07-03] MEDS: CALCIUM CARBONATE 500 MG TABLET PO SCH ×2 (09:06→20:18)
[2019-07-03] MEDS: OMEGA-3 FATTY ACIDS/FISH OIL 1,000 MG CAPSULE. PO SCH (09:07)
[2019-07-03] MEDS: POLYETHYLENE GLYCOL 3350 17 GM PACKET. PO SCH (09:07)
[2019-07-03] MEDS: DOCUSATE SODIUM 100 MG CAPSULE PO SCH (09:07)
[2019-07-03] MEDS: LOSARTAN 50 MG TABLET. PO SCH (09:07)
[2019-07-03] MEDS: ASPIRIN ENTERIC COATED 81 MG TABLET.DR. PO SCH (09:07)
[2019-07-03] MEDS: APIXABAN 5 MG TABLET. PO SCH ×2 (09:07→20:18)
[2019-07-03] MEDS: DIVALPROEX 125 MG CAP.SPRINK PO SCH ×2 (09:07→20:18)
[2019-07-03 15:32] VITALS: BP 116/71
[2019-07-03] MEDS: QUEtiapine 25 MG TABLET. PO SCH ×2 (17:23→20:17)
--- NOTE | 2019-07-03 18:30 | NUR ---
Patient has been anxious, attention seeking, and helpless throughout this shift. She has a repetitive speech pattern when she is especially anxious, though mainly she repeats the last sentence she has said. Patient increasingly anxious at times but was generally redirectable. She attended morning groups but was withdrawn in the afternoons. Will continue to monitor and report to oncoming shift.
[2019-07-03] MEDS: traZODone 50 MG TABLET. PO SCH (20:17)
[2019-07-03] MEDS: ATORVASTATIN CALCIUM 20 MG TABLET PO SCH (20:17)
--- NOTE | 2019-07-03 21:46 | PDOC ---
Exam Note: Zelalem Note: Please also refer to the separate dictated note~for this date of service dictated separately.~Patient seen individually. Discussed the patient with Nursing staff reviewed the chart.~Reviewed interim history and current functioning. Reviewed vital signs,~Labs/ Radiology~and current medications noted below. Continue current treatment with the changes noted in the dictated addendum note Assessment: Vital Signs/I&O: Vital Signs Date Time Temp Pulse Resp B/P (MAP) Pulse Ox O2 Delivery O2 Flow Rate FiO2 07/03/19 15:32 97.9 76 16 116/71 (86) 98 I & O 07/02/19 07/02/19 07/03/19 15:00 23:00 07:00 Intake Total 600 ml 600 ml Balance 600 ml 600 ml Current Medications: I have reviewed the current psychotropics carefully including drug interactions. Risk benefit ratio favors no change other than as noted in my dictated progress note. Diagnosis: Problems: (1) Suicidal ideation (2) Medical clearance for psychiatric admission (3) Anxiety disorder (4) Major depressive disorder, recurrent episode (5) Impulse control disorder (6) Panic disorder with agoraphobia and severe panic attacks JESSICA BRANCH MD Jul 03, 2019 21:46
--- NOTE | 2019-07-03 22:30 | NUR ---
Nursing Note Pt in room as I was medicating her roommate, and she starts to say, "I want this anxiety to end, end, end, I can't take it, take it, take it, take it!!! How can I get better, better better.....never never never." Explained to the patient that she needs to continue to be compliant and to work on some alternate coping mechanisms instead of allowing herself to spiral into a full on panic attack situation. Pt states "How can I do that, that, that, HELP HELP HELP!!" she was yelling in my face. I told her to do some deep breathing, to be consistently med compliant, and to let some things go, and focus on something calm and pleasant when feeling anxious. Guided imagery of a field of miller etc. Pt calms and settles down in bed comfortably.
--- NOTE | 2019-07-03 23:03 | NUR ---
Nursing Note Pt becomes increasingly anxious during my assessment, keeps trying to refuse meds form me stating "Don't make me, Don't make me, Don't make me, take those meds, meds, meds. I don't want them, want them, want them!! You are trying to trick me, trick me, trick me!!" Gave firm redirection and boundaries, insisted that she take the medications, that being compliant was part of her plan of care and would reflect on her progress toward discharge. She asked for a drink of water. I told her yes as long as she took her meds. Then she became emotional stating "That was a dirty trick, dirty trick, dirty trick, dirty trick, dirty trick. I don't like you now, like you now, like you now!!!" This was followed by loud noises bordering on screeching/whaling from the patient for the next 1.5 minutes. She then says her roommates name multiple times with the words help me attached to them, to try to rally her against me. Her roommate looks up and says "Close your eyes and go to sleep Amanda, enough" Then the patient state "Well.....ok ok ok." She tucked herself in and closed her eyes. She laid there mumbling in her sleep while I was assessing her roommate.
--- NOTE | 2019-07-04 04:29 | PN ---
DATE: 07/03/2019 PSYCHIATRIC PROGRESS NOTE This late entry 07/02/2019 covers elements not covered in my initial note. SUBJECTIVE: I met with the patient in the evening in her room. Per BENNIE Slater, the patient slept 6-1/4 hours previous night. She is anxious in the morning. Later, she was doing better. Previous night, she was resistive to cares, states her roommate was keeping her up at night and she resented this. She gets anxious, restless, repetitive in her request "help me, help me." REVIEW OF SYSTEMS: Ambulation impaired with walker. No CV, , pulmonary, eye system symptoms on review. Reliability varies. MENTAL STATUS EXAM: Oriented to herself and situation. Speech is coherent, rapid at times. Abstraction fair, computation impaired, language function intact, attention span short. Mood and affect remain somewhat labile. LABORATORY DATA: Reviewed. IMPRESSION: Unchanged from initial note. PLAN: No change from initial note, but we may need to increase the Luvox once the Depakote and valproic acid level is therapeutic as a mood stabilizer. JESSICA BRANCH MD DR: HAYDEN/rm JOB#: [id number] / [id number]
[2019-07-04 05:51] VITALS: BP 166/83
[2019-07-04 06:50] LABS: BASO % 1 % (0-3); EOS # 0.1 x10^3/uL (0.0-0.7); EOS % 3 % (0-3); HEMATOCRIT 36.3 % (36.0-47.0); HEMOGLOBIN 11.8 g/dL (12.0-15.5); LYMPH # 1.3 x10^3/uL (1.0-4.8); LYMPH % 25 % (24-48); MEAN CORPUSCULAR HEMOGLOBIN 28 pg (25-35); MEAN CORPUSCULAR HGB CONC 32 g/dL (31-37); MEAN CORPUSCULAR VOLUME 87 fL (79-100); MONO # 0.5 x10^3/uL (0.0-1.1); MONO % 11 % (0-9); NEUT % 61 % (31-73); PLATELET COUNT 160 x10^3/uL (140-400); RED BLOOD COUNT 4.19 x10^6/uL (3.50-5.40)
[2019-07-04 07:02] LABS: ALBUMIN 3.3 g/dL (3.4-5.0); ALK PHOS 81 U/L (46-116); ALT (SGPT) 23 U/L (14-59); ANION GAP 8 (6-14); AST (SGOT) 18 U/L (15-37); BLOOD UREA NITROGEN 24 mg/dL (7-20); BUN/CREATININE RATIO 27 (6-20); CALCIUM 9.1 mg/dL (8.5-10.1); CARBON DIOXIDE 29 mmol/L (21-32); CHLORIDE 105 mmol/L (98-107); CREATININE 0.9 mg/dL (0.6-1.0); GFR 60.4; GLUCOSE 83 mg/dL (70-99); POTASSIUM 4.2 mmol/L (3.5-5.1); SODIUM 142 mmol/L (136-145); TOTAL BILIRUBIN 0.3 mg/dL (0.2-1.0); TOTAL PROTEIN 6.7 g/dL (6.4-8.2); VAL ACID 49 mcg/mL (50-100)
[2019-07-04] MEDS: POLYETHYLENE GLYCOL 3350 17 GM PACKET. PO SCH (08:01)
[2019-07-04] MEDS: ASPIRIN ENTERIC COATED 81 MG TABLET.DR. PO SCH (08:03)
[2019-07-04] MEDS: LOSARTAN 50 MG TABLET. PO SCH (08:04)
[2019-07-04] MEDS: APIXABAN 5 MG TABLET. PO SCH ×2 (08:04→20:20)
[2019-07-04] MEDS: DIVALPROEX 125 MG CAP.SPRINK PO SCH ×2 (08:05→20:20)
[2019-07-04] MEDS: DOCUSATE SODIUM 100 MG CAPSULE PO SCH (08:05)
[2019-07-04] MEDS: CALCIUM CARBONATE 500 MG TABLET PO SCH ×2 (08:05→20:20)
[2019-07-04] MEDS: OMEGA-3 FATTY ACIDS/FISH OIL 1,000 MG CAPSULE. PO SCH (08:05)
--- NOTE | 2019-07-04 09:47 | NUR ---
WEEKLY ACTIVITY THERAPY NOTE Date of Admission: 06/11/2019 Date of AT Assessment: 06/14/2019 Goal aimed: to increase stress management skills Initial goal: Pt. will participate in all relaxation activities offered. Weekly progress towards goal: 0/0 relaxation specific activities Group participation level: varied in 6 groups this week Weekly highlights: fully engaged in horseshoes over the weekend Behaviors observed: decreased engagement in activities as the week has progressed, anxious moments continue Plan: no change to goal Beneficial adaptations: invitations to group, 1:1 support to engage
--- NOTE | 2019-07-04 11:03 | TX PLAN ---
Interdisciplinary Tx Plan Admission Information Jun 11, 2019 at 19:22 Legal Status (on Admission): Voluntary DPOA/Guardian Name: Ashlyn Chacon Contact Other Contact Name: Nader [place] Other Contact Verified Code Status: Full Code Allergies: Coded Allergies: No Known Drug Allergies (Unverified , 06/11/19) Diagnoses Primary Diagnosis: MDD Reasons for Admission: Suicidal attempt, Anxiety/Panic, Suicidal ideation, Poor impulse control Problem in Patient's Words: She has had a recent increase in behaviors without any precipitating events. Additional Admission Comments: According to the intake, pt has increased anxiety, outbursts, tearfulness, screaming for help, SI thoughts and attempts (tried to jump out of the car and throw self-down the stairs) labile during telepsych evaluation. Problems Active Problems: Anxiety Mood lability Ruminating thoughts Intrusive Inactive Problems: Medication compliants Denial of SI thoughts/attempts Pt Strengths/Limitations Ability for [place]: Poor Cognitive Functioning/Ability: Fair Communication Skills/Ability: Fair Financial Resources: Fair Insight/Judgement: Poor Intellectual Ability: Fair Physical Health: Poor Social Skills: Fair Stability in Family: Good Stability in School/Work: Poor Verbal Skills: Fair Discharge Criteria Discharge Criteria: Able meet basic life need, Adequate arrangements @DC, Verbal commit aftercare, Improved behavior, Improved mood/thought Preliminary Discharge Plan Preliminary DC Plan: Current Living Arrange. Special Precautions Fall Risk: Low Initial D/C Plan Pt will plan to return to [facility] Identified Discharge Needs: Pt will need more mental health services (e.g. psychiatry, counseling and possible case management) Currently Utilized Resources Currently Utilized Resources/P: Has Primary Care Physician Referrals Community Resources: Mental health resources for psychiatry, counseling and case management Identified Problems/Hx/Goals Objectives/Short-Term Goals Short Term Goals: Dec. Anxiety/Panic, Dec. Outbursts, Medication Stabilization, No Suicidal/Kenan. ideation, Promote Coping Skill Short Term Goals in Patient's: Medication management to decrease her depression and anxiety Interventions/Frequency Staff Interventions/Frequency&: Psychiatrist to assess pt at least 3x per week. Auditor In Charge to assess pt at least 2x per week. Nursing to complete 15 minute checks daily. Encourage pt to partipate in group activities/sit in the day room. History Vocational History: Pt worked at [employer] at [employer] in the [employer] for many years. Pt just retired in 2018 since she had her CVA and could no longer work. 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 Education: Pt graduated high school and has some college credits. Community Follow-up Appt with primary care physician at discharge Community Provider/Family Inpu: Concerns that she has the beginning stages of dementia. Potential for neurologist. Treatment Plan Explained Patient/Management Lecturer had this treatment plan explained to him/her as indicated by the signature below and has been given the opportunity to ask questions and make suggestions: Date: Patient/Management Lecturer Signature: Status Update Update Pt is eating roughly 50-75% of meals. Pt continues to be anxious and repetitive in her motions. Pt needs encouragement to take medications, as she attempts to refuse them from time to time. Pt attempts to attend group activities but doesn't fully participate due to noise and her increase in anxiety. Pt Depakote will be increased to 375mg BID, Luvox increased to 150mg daily and Seroquel 25mg q AM, 1700 and 75mg at HS. Pt is to return to placement at [facility]; SW to complete pt insurance review tomorrow for continued stay. ARABELLA WASHINGTON Jul 04, 2019 11:03
--- NOTE | 2019-07-04 11:56 | NUR ---
Patient has echolalia which is more pronounced when she is anxious or feels pressured to respond to a question. She ate 50% of her meal at breakfast and drank orange juice, coffee and milk. Patient spent most of the morning in her room, then was in day room for a short time before lunch. Patient was able to be verbally redirected from yelling in dining room after breakfast. Patient took medications whole, without any resistance this morning. Patient ambulates with walker and is up adlib.
[2019-07-04 15:50] VITALS: BP 138/78
--- NOTE | 2019-07-04 16:30 | NUR ---
SW attempted to contact pt dtr to discuss treatment team and address her concerns left in the message. SW will attempt to contact pt dtr tomorrow morning.
[2019-07-04] MEDS: QUEtiapine 25 MG TABLET. PO SCH ×2 (17:10→20:19)
--- NOTE | 2019-07-04 17:10 | NUR ---
CHLOE received a call back from pt dtr to discuss coming in to see if we could try to see if pt would be able to sign the housing paperwork with the [facility]. CHLOE discussed with Ashlyn what that would entail and mentioned that in the event that pt could not sign the paperwork, then the dr would have to sign a form stating that pt is not able to participate in any financial decisions at this time. Pt dtr will plan to be here around 1430.
--- NOTE | 2019-07-04 17:58 | NUR ---
Patient was talking with another patient who is crying and has a lot of anxiety. This patient said, "This is how I was, so I know how she feels. Its really hard, I wish I could help her but I have to work on myself". Pt does see the progress she has made but states that she still struggles with some anxiety at times, and stated, "I barely made it down to lunch". Patient states she is feeling much more "normal" now.
[2019-07-04] MEDS: ATORVASTATIN CALCIUM 20 MG TABLET PO SCH (20:19)
[2019-07-04] MEDS: traZODone 50 MG TABLET. PO SCH (20:19)
--- NOTE | 2019-07-04 21:20 | PDOC ---
Exam Note: Zelalem Note: Please also refer to the separate dictated note~for this date of service dictated separately.~Patient seen individually. Discussed the patient with Nursing staff reviewed the chart.~Reviewed interim history and current functioning. Reviewed vital signs,~Labs/ Radiology~and current medications noted below. Continue current treatment with the changes noted in the dictated addendum note Assessment: Vital Signs/I&O: Vital Signs Date Time Temp Pulse Resp B/P (MAP) Pulse Ox O2 Delivery O2 Flow Rate FiO2 07/04/19 15:50 97.6 83 16 138/78 (98) 96 Room Air I & O 07/03/19 07/03/19 07/04/19 15:00 23:00 07:00 Intake Total 840 ml 200 ml Balance 840 ml 200 ml Labs: Laboratory Tests Test 07/04/19 06:37 White Blood Count 5.0 x10^3/uL (4.0-11.0) Red Blood Count 4.19 x10^6/uL (3.50-5.40) Hemoglobin 11.8 g/dL (12.0-15.5) L Hematocrit 36.3 % (36.0-47.0) Mean Corpuscular Volume 87 fL (79-100) Mean Corpuscular Hemoglobin 28 pg (25-35) Mean Corpuscular Hemoglobin Concent 32 g/dL (31-37) Red Cell Distribution Width 15.0 % (11.5-14.5) H Platelet Count 160 x10^3/uL (140-400) Neutrophils (%) (Auto) 61 % (31-73) Lymphocytes (%) (Auto) 25 % (24-48) Monocytes (%) (Auto) 11 % (0-9) H Eosinophils (%) (Auto) 3 % (0-3) Basophils (%) (Auto) 1 % (0-3) Neutrophils # (Auto) 3.0 x10^3uL (1.8-7.7) Lymphocytes # (Auto) 1.3 x10^3/uL (1.0-4.8) Monocytes # (Auto) 0.5 x10^3/uL (0.0-1.1) Eosinophils # (Auto) 0.1 x10^3/uL (0.0-0.7) Basophils # (Auto) 0.0 x10^3/uL (0.0-0.2) Sodium Level 142 mmol/L (136-145) Potassium Level 4.2 mmol/L (3.5-5.1) Chloride Level 105 mmol/L (98-107) Carbon Dioxide Level 29 mmol/L (21-32) Anion Gap 8 (6-14) Blood Urea Nitrogen 24 mg/dL (7-20) H Creatinine 0.9 mg/dL (0.6-1.0) Estimated GFR (Cockcroft-Gault) 60.4 BUN/Creatinine Ratio 27 (6-20) H Glucose Level 83 mg/dL (70-99) Calcium Level 9.1 mg/dL (8.5-10.1) Total Bilirubin 0.3 mg/dL (0.2-1.0) Aspartate Amino Transferase (AST) 18 U/L (15-37) Alanine Aminotransferase (ALT) 23 U/L (14-59) Alkaline Phosphatase 81 U/L (46-116) Total Protein 6.7 g/dL (6.4-8.2) Albumin 3.3 g/dL (3.4-5.0) L Albumin/Globulin Ratio 1.0 (1.0-1.7) Valproic Acid Level 49 mcg/mL (50-100) L Valproic Acid Last Dose Date 07/03/2019 Valproic Acid Last Dose Time 2100 Current Medications: Meds: Current Medications Medications (Trade) Dose Ordered Sig/Pete Route PRN Reason Start Time Stop Time Status Last Admin Dose Admin Fluvoxamine Maleate (Luvox) 125 mg DAILY PO 07/04/19 09:00 07/06/19 11:00 07/04/19 08:05 Divalproex Sodium (Depakote Sprinkles) 375 mg BID PO 07/04/19 21:00 07/04/19 20:20 I have reviewed the current psychotropics carefully including drug interactions. Risk benefit ratio favors no change other than as noted in my dictated progress note. Diagnosis: Problems: (1) Suicidal ideation (2) Anxiety disorder (3) Major depressive disorder, recurrent episode (4) Impulse control disorder (5) Panic disorder with agoraphobia and severe panic attacks JESSICA BRANCH MD Jul 04, 2019 21:20
--- NOTE | 2019-07-05 01:43 | NUR ---
Pt has been in her room this shift she took meds whole without difficulty. While taking meds she was making some repetitive sounds but has pleasant and cooperative. After taking meds she went back to sleep.
[2019-07-05 06:18] VITALS: BP 153/80
[2019-07-05] MEDS: POLYETHYLENE GLYCOL 3350 17 GM PACKET. PO SCH (07:56)
[2019-07-05] MEDS: DOCUSATE SODIUM 100 MG CAPSULE PO SCH (07:57)
[2019-07-05] MEDS: CALCIUM CARBONATE 500 MG TABLET PO SCH ×2 (07:57→20:36)
[2019-07-05] MEDS: OMEGA-3 FATTY ACIDS/FISH OIL 1,000 MG CAPSULE. PO SCH (07:57)
[2019-07-05] MEDS: APIXABAN 5 MG TABLET. PO SCH ×2 (07:57→20:36)
[2019-07-05] MEDS: DIVALPROEX 125 MG CAP.SPRINK PO SCH ×2 (07:57→20:37)
[2019-07-05] MEDS: QUEtiapine 25 MG TABLET. PO SCH ×3 (07:58→20:37)
[2019-07-05] MEDS: LOSARTAN 50 MG TABLET. PO SCH (07:58)
[2019-07-05] MEDS: ASPIRIN ENTERIC COATED 81 MG TABLET.DR. PO SCH (07:58)
--- NOTE | 2019-07-05 09:59 | PN ---
DATE: 07/03/2019 PSYCHIATRIC PROGRESS NOTE This late entry 07/03/2019 covers the elements not covered in my initial note. SUBJECTIVE: I met with the patient in the evening. Per BENNIE Key, the patient slept 6-3/4 hours previous night. She has been anxious, repetitive in her speech, somewhat labile in her mood. REVIEW OF SYSTEMS: Ambulation impaired with walker. No CV, , pulmonary, eye system symptoms on review. She has vague somatic symptoms. MENTAL STATUS EXAM: Reasonably oriented. Speech coherent, can be high pitched at times. Abstraction fair, computation impaired. Language function intact. Mood and affect remains anxious and labile. LABORATORY DATA: Reviewed. IMPRESSION: Unchanged from initial note. PLAN: Increase Luvox from 100 mg a day to 125 mg a day. Check CBC, CMP, valproic acid level in the morning of 07/04/2019. Continue rest unchanged for now, may need to increase Seroquel at some point, if mood lability persists. MAN Beverley BRANCH MD DR: HAYDEN/rm JOB#: [id number] / [id number]
--- NOTE | 2019-07-05 10:00 | NUR ---
Pt spit out meds in am. When crushed pt tried to spit them out. Pt finally took meds from another staff member. Pt given zydis later morning r/t her increasing anxiety.
--- NOTE | 2019-07-05 14:21 | PN ---
DATE: 07/04/2019 PSYCHIATRIC PROGRESS NOTE This late entry 07/04/2019 covers elements not covered in my initial note. SUBJECTIVE: I met with the patient in the evening and staffed at treatment team meeting with the entire team in the morning. The patient has been anxious, refused the bedtime medications, yelling out at times, and was in groups once a day. Valproic acid level is 49, subtherapeutic. At times, she is more withdrawn. She did gets overstimulated with noises around her and staff are looking for a noise cancelling headphone to help with this. REVIEW OF SYSTEMS: Ambulation impaired with walker. No CV, , pulmonary, eye, ENT system symptoms on review. MENTAL STATUS EXAM: Oriented to herself and situation. Speech is coherent, can be rapid at times, high pitched less so than before. Abstraction fair, computation impaired, language function intact, and attention span short. Mood and affect remain somewhat anxious, labile. LABORATORY DATA: Reviewed. IMPRESSION: Major depressive disorder, recurrent; obsessive-compulsive disorder and anxiety disorder, unspecified. PLAN: Continue Seroquel 25 mg at 1700 and 75 mg at bedtime, add Seroquel 25 mg at 9:00 a.m. Valproic acid level subtherapeutic. We will increase Depakote Sprinkles from 250 mg twice a day to 375 mg twice a day. Check CBC, CMP, valproic acid level in 3 days. Luvox is currently 125 mg a day and after she has been on that for 3 days, we will increase to 150 mg a day for her OCD and anxiety symptoms. Rest unchanged for now including trazodone 25 mg at bedtime. MAN Beverley BRANCH MD DR: HAYDEN/rm JOB#: [id number] / [id number]
--- NOTE | 2019-07-05 14:50 | NUR ---
SW assisted pt dtr and pt downstairs to have forms signed and notarized. Pt initially was calm and able to complete the task stating "I can't wait until all of this this can be put behind me". Pt signed paperwork for her duplex in which they have a reversed mortgage. Once everything was signed and pt dtr took the pen out of pt hand, pt became anxious and got upset stating "this is not my walker". SW attempted to calm pt by rubbing her back and explaining that pt came down in the wheelchair. Pt began to yell and have repetitive comments "help me, help me", "this isn't my chair", "is this plant real" as pt began touching the plant. CHLOE asked for assistance from one of the techs and they were able to escort pt upstairs.
[2019-07-05 15:36] VITALS: BP 148/88
--- NOTE | 2019-07-05 16:12 | NUR ---
Pt dtr. here. Noted pt right hand slightly swollen. Noted on left. Pt does not c/o pain. Denies any injury. Unsure whether she has a hx of arthritis. Pt does has hx of R side mastectomy but does not have BP taken in that arm. No redness or warmth noted. Will continue to monitor.
[2019-07-05] MEDS: ATORVASTATIN CALCIUM 20 MG TABLET PO SCH (20:36)
[2019-07-05] MEDS: traZODone 50 MG TABLET. PO SCH (20:36)
--- NOTE | 2019-07-05 21:25 | PDOC ---
Exam Note: Zelalem Note: Please also refer to the separate dictated note~for this date of service dictated separately.~Patient seen individually. Discussed the patient with Nursing staff reviewed the chart.~Reviewed interim history and current functioning. Reviewed vital signs,~Labs/ Radiology~and current medications noted below. Continue current treatment with the changes noted in the dictated addendum note Assessment: Vital Signs/I&O: Vital Signs Date Time Temp Pulse Resp B/P (MAP) Pulse Ox O2 Delivery O2 Flow Rate FiO2 07/05/19 15:36 98.8 77 18 148/88 (108) 96 07/04/19 15:50 Room Air I & O 07/04/19 07/04/19 07/05/19 15:00 23:00 07:00 Intake Total 960 ml 240 ml 240 ml Balance 960 ml 240 ml 240 ml Current Medications: Meds: Current Medications Medications (Trade) Dose Ordered Sig/Pete Route PRN Reason Start Time Stop Time Status Last Admin Dose Admin Quetiapine Fumarate (SEROquel) 25 mg DAILY PO 07/05/19 09:00 07/05/19 07:58 I have reviewed the current psychotropics carefully including drug interactions. Risk benefit ratio favors no change other than as noted in my dictated progress note. Diagnosis: Problems: (1) Suicidal ideation (2) Medical clearance for psychiatric admission (3) Anxiety disorder (4) Major depressive disorder, recurrent episode (5) Impulse control disorder (6) Panic disorder with agoraphobia and severe panic attacks JESSICA BRANCH MD Jul 05, 2019 21:25
--- NOTE | 2019-07-05 23:29 | NUR ---
Patient is lying down in her bed on assumption of care, awake. She is hyperverbal, disorganized. Resistant to taking her medications but did take them with much cueing. Compliant with assessments. After med pass, she repeatedly kept getting up, walking down to the day room, and then walking back to her room. Repeating "I need help, I need help, I need help." When asked what she needed help with, she stated "When am I going to start feeling something, feeling something?" This literary writer reminded the patient that she had just taken her meds minutes earlier. She continued to be hyperverbal, going in and out of her doorway and bothering her roommate. After several attempts at redirection, patient finally settled into bed. She is currently sleeping. No agitation. Denies any pain or discomfort.
[2019-07-06 05:16] VITALS: BP 147/78
[2019-07-06] MEDS: APIXABAN 5 MG TABLET. PO SCH ×2 (08:03→19:59)
[2019-07-06] MEDS: LOSARTAN 50 MG TABLET. PO SCH (08:03)
[2019-07-06] MEDS: QUEtiapine 25 MG TABLET. PO SCH ×3 (08:04→20:00)
[2019-07-06] MEDS: DOCUSATE SODIUM 100 MG CAPSULE PO SCH (08:04)
[2019-07-06] MEDS: CALCIUM CARBONATE 500 MG TABLET PO SCH ×2 (08:04→20:00)
[2019-07-06] MEDS: CHOLECALCIFEROL (VITAMIN D3) 50,000 UNIT CAPSULE PO SCH (08:04)
[2019-07-06] MEDS: POLYETHYLENE GLYCOL 3350 17 GM PACKET. PO SCH (08:05)
[2019-07-06] MEDS: OMEGA-3 FATTY ACIDS/FISH OIL 1,000 MG CAPSULE. PO SCH (08:05)
[2019-07-06] MEDS: DIVALPROEX 125 MG CAP.SPRINK PO SCH ×2 (08:06→20:00)
[2019-07-06] MEDS: ASPIRIN ENTERIC COATED 81 MG TABLET.DR. PO SCH (08:06)
--- NOTE | 2019-07-06 09:50 | NUR ---
Patient complaint with medication and assessment. Patient reparative with her speech but is easily re-directable. Patient excited when given choices but appears to get easily overwhelmed. patient roaming hallways and has no needs at this time.
[2019-07-06 15:14] VITALS: BP 158/88
[2019-07-06] MEDS: ATORVASTATIN CALCIUM 20 MG TABLET PO SCH (20:00)
[2019-07-06] MEDS: traZODone 50 MG TABLET. PO SCH (20:00)
--- NOTE | 2019-07-06 23:34 | NUR ---
Pt located in her room this evening, laying down. Pt initially irritable when woken up. Pt resistive with her HS medications, stating "don't make me take them. I can't take them." Pt appears anxious and continues to have repetitive speech. Pt eventually compliant with much cueing. Pt currently sleeping in bed.
--- NOTE | 2019-07-07 00:20 | PN ---
DATE: 07/06/2019 SUBJECTIVE: The patient was seen today, met with the staff, chart reviewed. The patient complains of feeling numb, not able to experience any emotions. The patient also has multiple physical complaints, also episodes of confusion. The patient is having difficulty getting in touch with her feelings. Also, confused to the point she has to be redirected. The patient is not able to follow directions. OBSERVATION: VITAL SIGNS: Temperature 96.9, blood pressure 147/78, pulse 89, respirations 20, O2 sat 96%. GENERAL: Slept about 7 hours last night. CURRENT MEDICATIONS: The patient's current medications include Luvox 150 mg daily, Seroquel 25 mg daily, Depakote Sprinkles 375 mg b.i.d., Seroquel 25 mg daily, Seroquel 75 mg at night, trazodone 25 mg at night. The patient is also on olanzapine 2.5 mg q. 2 hours p.r.n. LABORATORY DATA: The patient's lab reviewed. ASSESSMENT: 1. Major depression, recurrent, moderate to severe. 2. Obsessive compulsive disorder. PLAN: Continue with the current treatment plan. BERONICA HERNÁNDEZ MD DR: KRIS/rm JOB#: [id number] / [id number]
[2019-07-07 05:09] VITALS: BP 172/80
[2019-07-07] MEDS: DOCUSATE SODIUM 100 MG CAPSULE PO SCH (07:46)
[2019-07-07] MEDS: OMEGA-3 FATTY ACIDS/FISH OIL 1,000 MG CAPSULE. PO SCH (07:46)
[2019-07-07] MEDS: ASPIRIN ENTERIC COATED 81 MG TABLET.DR. PO SCH (07:46)
[2019-07-07] MEDS: APIXABAN 5 MG TABLET. PO SCH ×2 (07:47→19:40)
[2019-07-07] MEDS: DIVALPROEX 125 MG CAP.SPRINK PO SCH ×2 (07:47→19:41)
[2019-07-07] MEDS: LOSARTAN 50 MG TABLET. PO SCH (07:47)
[2019-07-07] MEDS: CALCIUM CARBONATE 500 MG TABLET PO SCH ×2 (07:47→19:40)
[2019-07-07] MEDS: QUEtiapine 25 MG TABLET. PO SCH ×3 (07:48→19:42)
[2019-07-07] MEDS: POLYETHYLENE GLYCOL 3350 17 GM PACKET. PO SCH (07:49)
--- NOTE | 2019-07-07 14:04 | PN ---
DATE: 07/07/2019 SUBJECTIVE: The patient was seen today, met with the staff, chart reviewed. The patient continues to have episodes of confusion, high level of anxiety, also has problems with her thinking including having difficulty finding words and also gets stuck with certain claims and ideas. The patient is also exhibiting echolalia and palilalia. The patient still focusing on feeling numb and she is not sure whether she is depressed or not. OBSERVATION: VITAL SIGNS: Temperature 97.2, blood pressure 172/80, pulse 74, respirations 18, O2 sat 95%. Sleep about 4-1/2 hours last night. The patient's appetite is fair. The patient denies of any other side effects. The patient walks with a walker, but she has unsteady gait and she is a fall risk. CURRENT MEDICATIONS: Include Luvox 150 mg daily, Seroquel 25 mg daily, Depakote Sprinkles 375 mg b.i.d., Seroquel 25 mg daily and Seroquel 75 mg at night. The patient is also on trazodone 25 mg at night. The patient is also on olanzapine 2.5 mg q.2 hours p.r.n. LABORATORY DATA: The patient's lab reviewed. ASSESSMENT: 1. Major depression, recurrent, moderate to severe. 2. Obsessive compulsive disorder. PLAN: To continue with the treatment. LENGTH OF STAY: 5-7 days. BERONICA HERNÁNDEZ MD DR: KRIS/rm JOB#: [id number] / [id number]
[2019-07-07 15:21] VITALS: BP 144/82
[2019-07-07] MEDS: ATORVASTATIN CALCIUM 20 MG TABLET PO SCH (19:39)
[2019-07-07] MEDS: traZODone 50 MG TABLET. PO SCH (19:40)
--- NOTE | 2019-07-08 03:14 | NUR ---
Patient is in the day room on assumption of care. She is pleasant, polite. Calm, cooperative and compliant with medications and assessments. No agitation. Denies pain or discomfort. Denies SI.
[2019-07-08 06:42] VITALS: BP 170/93
[2019-07-08 06:55] LABS: BASO % 1 % (0-3); EOS # 0.1 x10^3/uL (0.0-0.7); EOS % 3 % (0-3); HEMATOCRIT 35.3 % (36.0-47.0); HEMOGLOBIN 11.4 g/dL (12.0-15.5); LYMPH # 1.8 x10^3/uL (1.0-4.8); LYMPH % 39 % (24-48); MEAN CORPUSCULAR HEMOGLOBIN 28 pg (25-35); MEAN CORPUSCULAR HGB CONC 32 g/dL (31-37); MEAN CORPUSCULAR VOLUME 87 fL (79-100); MONO # 0.5 x10^3/uL (0.0-1.1); MONO % 10 % (0-9); NEUT # 2.1 x10^3uL (1.8-7.7); NEUT % 48 % (31-73); PLATELET COUNT 138 x10^3/uL (140-400); RED BLOOD COUNT 4.05 x10^6/uL (3.50-5.40); RED CELL DISTRIBUTION WIDTH 15.5 % (11.5-14.5); WHITE BLOOD COUNT 4.5 x10^3/uL (4.0-11.0)
[2019-07-08 07:08] LABS: ALBUMIN 2.9 g/dL (3.4-5.0); ALBUMIN/GLOBULIN RATIO 0.9 (1.0-1.7); ALK PHOS 72 U/L (46-116); ALT (SGPT) 19 U/L (14-59); ANION GAP 5 (6-14); AST (SGOT) 14 U/L (15-37); BLOOD UREA NITROGEN 28 mg/dL (7-20); BUN/CREATININE RATIO 28 (6-20); CALCIUM 8.8 mg/dL (8.5-10.1); CARBON DIOXIDE 31 mmol/L (21-32); CHLORIDE 106 mmol/L (98-107); GFR 53.5; GLUCOSE 80 mg/dL (70-99); POTASSIUM 4.5 mmol/L (3.5-5.1); SODIUM 142 mmol/L (136-145); TOTAL BILIRUBIN 0.3 mg/dL (0.2-1.0); TOTAL PROTEIN 6.1 g/dL (6.4-8.2)
[2019-07-08 07:11] LABS: VAL ACID 68 mcg/mL (50-100)
[2019-07-08] MEDS: LOSARTAN 50 MG TABLET. PO SCH (08:20)
[2019-07-08] MEDS: ASPIRIN ENTERIC COATED 81 MG TABLET.DR. PO SCH (08:20)
[2019-07-08] MEDS: DIVALPROEX 125 MG CAP.SPRINK PO SCH ×2 (08:20→20:24)
[2019-07-08] MEDS: DOCUSATE SODIUM 100 MG CAPSULE PO SCH (08:20)
[2019-07-08] MEDS: APIXABAN 5 MG TABLET. PO SCH ×2 (08:21→20:26)
[2019-07-08] MEDS: OMEGA-3 FATTY ACIDS/FISH OIL 1,000 MG CAPSULE. PO SCH (08:21)
[2019-07-08] MEDS: POLYETHYLENE GLYCOL 3350 17 GM PACKET. PO SCH (08:21)
[2019-07-08] MEDS: QUEtiapine 25 MG TABLET. PO SCH ×3 (08:21→20:25)
[2019-07-08] MEDS: CALCIUM CARBONATE 500 MG TABLET PO SCH ×2 (08:21→20:25)
--- NOTE | 2019-07-08 11:25 | NUR ---
Pt is calm, cooperative, compliant. No agitation, no aggression, no hallucinations, no delusions noted. She is anxious at times but redirects well. She is compliant with her medication and assessment.
[2019-07-08 15:25] VITALS: BP 151/84
[2019-07-08] MEDS: ATORVASTATIN CALCIUM 20 MG TABLET PO SCH (20:24)
[2019-07-08] MEDS: traZODone 50 MG TABLET. PO SCH (20:25)
--- NOTE | 2019-07-08 21:24 | PDOC ---
Exam Note: Zelalem Note: Please also refer to the separate dictated note~for this date of service dictated separately.~Patient seen individually. Discussed the patient with Nursing staff reviewed the chart.~Reviewed interim history and current functioning. Reviewed vital signs,~Labs/ Radiology~and current medications noted below. Continue current treatment with the changes noted in the dictated addendum note Assessment: Vital Signs/I&O: Vital Signs Date Time Temp Pulse Resp B/P (MAP) Pulse Ox O2 Delivery O2 Flow Rate FiO2 07/08/19 15:25 98.7 87 16 151/84 (106) 96 07/06/19 05:16 Room Air I & O 07/07/19 07/07/19 07/08/19 15:00 23:00 07:00 Intake Total 700 ml 360 ml Balance 700 ml 360 ml Labs: Laboratory Tests Test 07/08/19 06:48 White Blood Count 4.5 x10^3/uL (4.0-11.0) Red Blood Count 4.05 x10^6/uL (3.50-5.40) Hemoglobin 11.4 g/dL (12.0-15.5) L Hematocrit 35.3 % (36.0-47.0) L Mean Corpuscular Volume 87 fL (79-100) Mean Corpuscular Hemoglobin 28 pg (25-35) Mean Corpuscular Hemoglobin Concent 32 g/dL (31-37) Red Cell Distribution Width 15.5 % (11.5-14.5) H Platelet Count 138 x10^3/uL (140-400) L Neutrophils (%) (Auto) 48 % (31-73) Lymphocytes (%) (Auto) 39 % (24-48) Monocytes (%) (Auto) 10 % (0-9) H Eosinophils (%) (Auto) 3 % (0-3) Basophils (%) (Auto) 1 % (0-3) Neutrophils # (Auto) 2.1 x10^3uL (1.8-7.7) Lymphocytes # (Auto) 1.8 x10^3/uL (1.0-4.8) Monocytes # (Auto) 0.5 x10^3/uL (0.0-1.1) Eosinophils # (Auto) 0.1 x10^3/uL (0.0-0.7) Basophils # (Auto) 0.0 x10^3/uL (0.0-0.2) Sodium Level 142 mmol/L (136-145) Potassium Level 4.5 mmol/L (3.5-5.1) Chloride Level 106 mmol/L (98-107) Carbon Dioxide Level 31 mmol/L (21-32) Anion Gap 5 (6-14) L Blood Urea Nitrogen 28 mg/dL (7-20) H Creatinine 1.0 mg/dL (0.6-1.0) Estimated GFR (Cockcroft-Gault) 53.5 BUN/Creatinine Ratio 28 (6-20) H Glucose Level 80 mg/dL (70-99) Calcium Level 8.8 mg/dL (8.5-10.1) Total Bilirubin 0.3 mg/dL (0.2-1.0) Aspartate Amino Transferase (AST) 14 U/L (15-37) L Alanine Aminotransferase (ALT) 19 U/L (14-59) Alkaline Phosphatase 72 U/L (46-116) Total Protein 6.1 g/dL (6.4-8.2) L Albumin 2.9 g/dL (3.4-5.0) L Albumin/Globulin Ratio 0.9 (1.0-1.7) L Valproic Acid Level 68 mcg/mL (50-100) Valproic Acid Last Dose Date 07/07/19 Valproic Acid Last Dose Time 2100 Current Medications: I have reviewed the current psychotropics carefully including drug interactions. Risk benefit ratio favors no change other than as noted in my dictated progress note. Diagnosis: Problems: (1) Suicidal ideation (2) Medical clearance for psychiatric admission (3) Anxiety disorder (4) Major depressive disorder, recurrent episode (5) Impulse control disorder (6) Panic disorder with agoraphobia and severe panic attacks JESSICA BRANCH MD Jul 08, 2019 21:24
--- NOTE | 2019-07-08 22:31 | NUR ---
PPt has been in her room in bed this shift. She took meds whole but was disorganized with them, she put them in her mouth then spit back out into med cup then started to dump them into water. With prompting she did finally take them. She was having some repetitive speech and musical vocalizations while talking to staff.
[2019-07-09 04:58] VITALS: BP 154/79
--- NOTE | 2019-07-09 05:02 | PN ---
DATE: 07/05/2019 PSYCHIATRIC PROGRESS NOTE This late entry 07/05/2019 covers elements not covered in my initial note. SUBJECTIVE: I met with the patient in the evening. I met with her in her room. Per BENNIE Howe, the patient slept 10 hours previous night. She tried to spit out her medications into a Kleenex and then onto the floor and then was making repeated comments "Yuck, Yuck." She continues to have some repetitive speech, anxious at times, high pitched speech, but other times she is better. REVIEW OF SYSTEMS: Ambulation impaired with walker. No CV, , PULMONARY, EYE system symptoms on review. She has vague somatic symptoms. MENTAL STATUS EXAM: Oriented to herself and situation. Speech is as above. Abstraction fair, computation impaired, language function intact, attention span short. Mood and affect remain somewhat anxious, labile, but showing improvement. LABORATORY DATA: Reviewed. IMPRESSION: Unchanged from initial note. PLAN: No change from initial note. JESSICA BRANCH MD DR: HAYDEN/rm JOB#: [id number] / [id number]
[2019-07-09] MEDS: ASPIRIN ENTERIC COATED 81 MG TABLET.DR. PO SCH (08:24)
[2019-07-09] MEDS: CALCIUM CARBONATE 500 MG TABLET PO SCH ×2 (08:24→20:23)
[2019-07-09] MEDS: QUEtiapine 25 MG TABLET. PO SCH ×3 (08:25→20:23)
[2019-07-09] MEDS: DIVALPROEX 125 MG CAP.SPRINK PO SCH ×2 (08:25→20:23)
[2019-07-09] MEDS: DOCUSATE SODIUM 100 MG CAPSULE PO SCH (08:25)
[2019-07-09] MEDS: LOSARTAN 50 MG TABLET. PO SCH (08:25)
[2019-07-09] MEDS: APIXABAN 5 MG TABLET. PO SCH ×2 (08:25→20:22)
[2019-07-09] MEDS: OMEGA-3 FATTY ACIDS/FISH OIL 1,000 MG CAPSULE. PO SCH (08:25)
[2019-07-09] MEDS: POLYETHYLENE GLYCOL 3350 17 GM PACKET. PO SCH (08:25)
--- NOTE | 2019-07-09 09:30 | NUR ---
Patient is alert, oriented that she is in the hospital and to self. States that she is ready to leave. Denies pain. Compliant with medications and cares. Ambulating using a walker. RN asked why her room number changed, pt responded, "they wanted me to be in a different room". Pt did participate for half of group this morning, then went to her room. Pt has made a couple of singing noises this morning (ooohhhh nooooo),however those outbursts are lessening. Plan is to continue medication management with Dr Alvarado, encourage group participation and provide emotional support.
[2019-07-09 15:41] VITALS: BP 147/77
[2019-07-09 19:11] LABS: HEMATOCRIT 34.7 % (36.0-47.0); HEMOGLOBIN 11.3 g/dL (12.0-15.5); RED BLOOD COUNT 3.99 x10^6/uL (3.50-5.40); RED CELL DISTRIBUTION WIDTH 15.3 % (11.5-14.5); WHITE BLOOD COUNT 4.5 x10^3/uL (4.0-11.0)
[2019-07-09 19:22] LABS: ALBUMIN 3.1 g/dL (3.4-5.0); ALBUMIN/GLOBULIN RATIO 0.9 (1.0-1.7); CALCIUM 8.9 mg/dL (8.5-10.1); CREATININE 1.1 mg/dL (0.6-1.0); GFR 47.9; POTASSIUM 4.1 mmol/L (3.5-5.1); TOTAL BILIRUBIN 0.2 mg/dL (0.2-1.0); TOTAL PROTEIN 6.4 g/dL (6.4-8.2)
[2019-07-09] MEDS: ATORVASTATIN CALCIUM 20 MG TABLET PO SCH (20:22)
[2019-07-09] MEDS: traZODone 50 MG TABLET. PO SCH (20:23)
--- NOTE | 2019-07-09 22:00 | PDOC ---
Exam Note: Zelalem Note: Please also refer to the separate dictated note~for this date of service dictated separately.~Patient seen individually. Discussed the patient with Nursing staff reviewed the chart.~Reviewed interim history and current functioning. Reviewed vital signs,~Labs/ Radiology~and current medications noted below. Continue current treatment with the changes noted in the dictated addendum note Assessment: Vital Signs/I&O: Vital Signs Date Time Temp Pulse Resp B/P (MAP) Pulse Ox O2 Delivery O2 Flow Rate FiO2 07/09/19 15:41 98.2 75 16 147/77 (100) 96 07/06/19 05:16 Room Air I & O 07/08/19 07/08/19 07/09/19 15:00 23:00 07:00 Intake Total 840 ml 180 ml Balance 840 ml 180 ml Labs: Laboratory Tests Test 07/09/19 19:00 White Blood Count 4.5 x10^3/uL (4.0-11.0) Red Blood Count 3.99 x10^6/uL (3.50-5.40) Hemoglobin 11.3 g/dL (12.0-15.5) L Hematocrit 34.7 % (36.0-47.0) L Mean Corpuscular Volume 87 fL (79-100) Mean Corpuscular Hemoglobin 28 pg (25-35) Mean Corpuscular Hemoglobin Concent 33 g/dL (31-37) Red Cell Distribution Width 15.3 % (11.5-14.5) H Platelet Count 143 x10^3/uL (140-400) Sodium Level 138 mmol/L (136-145) Potassium Level 4.1 mmol/L (3.5-5.1) Chloride Level 102 mmol/L (98-107) Carbon Dioxide Level 28 mmol/L (21-32) Anion Gap 8 (6-14) Blood Urea Nitrogen 30 mg/dL (7-20) H Creatinine 1.1 mg/dL (0.6-1.0) H Estimated GFR (Cockcroft-Gault) 47.9 BUN/Creatinine Ratio 27 (6-20) H Glucose Level 160 mg/dL (70-99) H Calcium Level 8.9 mg/dL (8.5-10.1) Total Bilirubin 0.2 mg/dL (0.2-1.0) Aspartate Amino Transferase (AST) 16 U/L (15-37) Alanine Aminotransferase (ALT) 20 U/L (14-59) Alkaline Phosphatase 76 U/L (46-116) Total Protein 6.4 g/dL (6.4-8.2) Albumin 3.1 g/dL (3.4-5.0) L Albumin/Globulin Ratio 0.9 (1.0-1.7) L Current Medications: I have reviewed the current psychotropics carefully including drug interactions. Risk benefit ratio favors no change other than as noted in my dictated progress note. Diagnosis: Problems: (1) Suicidal ideation (2) Medical clearance for psychiatric admission (3) Anxiety disorder (4) Major depressive disorder, recurrent episode (5) Impulse control disorder (6) Panic disorder with agoraphobia and severe panic attacks JESSICA BRANCH MD Jul 09, 2019 22:00
--- NOTE | 2019-07-09 23:12 | NUR ---
Nursing note: Assumed care of pt in her room where she was in bed, awake, but drowsy. She was compliant with meds and assessment but confused. She is pleasant and no anxiety or agitation present. No c/o pain.
--- NOTE | 2019-07-10 00:54 | PN ---
DATE: 07/08/2019 PSYCHIATRIC PROGRESS NOTE This late entry 07/08/2019 covers elements not covered in my initial note. SUBJECTIVE: I met with the patient evening of 07/08/2019 and reviewed information from nursing staff and Dr. Celaya as Dr. Celaya had covered for me for the past couple of days. The patient slept 7-1/2 hours previous night. Valproic acid level is therapeutic at 68. She is doing a little better, but still repetitive in her verbalizations. No suicidal ideation noted. REVIEW OF SYSTEMS: Positive for some tiredness. No CV, , pulmonary, eye, ENT system symptoms on review. MENTAL STATUS EXAM: Reasonably oriented. Speech is coherent, little pressured. Abstraction fair, computation impaired, language function intact, attention span short. Mood and affect remain somewhat anxious, at times labile, but showing improvement. LABORATORY DATA: Reviewed. IMPRESSION: Major depressive disorder, recurrent with psychotic features, in partial remission; obsessive-compulsive disorder; anxiety disorder, unspecified; impulse control disorder. PLAN: Continue psychotropics from initial note, Seroquel 25 mg b.i.d. 75 mg at bedtime, Luvox 150 mg at bedtime, Zyprexa p.r.n., trazodone 25 mg at bedtime, Depakote Sprinkles 375 mg b.i.d., level therapeutic at 68. May need to increase Seroquel as a mood stabilizer, but I will give it another 24 hours and then decide. JESSICA BRANCH MD DR: HAYDEN/rm JOB#: [id number] / [id number]
[2019-07-10 06:40] VITALS: BP 153/86
[2019-07-10] MEDS: POLYETHYLENE GLYCOL 3350 17 GM PACKET. PO SCH (08:07)
[2019-07-10] MEDS: OMEGA-3 FATTY ACIDS/FISH OIL 1,000 MG CAPSULE. PO SCH (08:07)
[2019-07-10] MEDS: DIVALPROEX 125 MG CAP.SPRINK PO SCH ×2 (08:07→19:51)
[2019-07-10] MEDS: ASPIRIN ENTERIC COATED 81 MG TABLET.DR. PO SCH (08:07)
[2019-07-10] MEDS: DOCUSATE SODIUM 100 MG CAPSULE PO SCH (08:08)
[2019-07-10] MEDS: QUEtiapine 25 MG TABLET. PO SCH ×3 (08:08→19:52)
[2019-07-10] MEDS: APIXABAN 5 MG TABLET. PO SCH ×2 (08:08→19:52)
[2019-07-10] MEDS: CALCIUM CARBONATE 500 MG TABLET PO SCH ×2 (08:08→19:52)
[2019-07-10] MEDS: LOSARTAN 50 MG TABLET. PO SCH (08:08)
[2019-07-10 09:45] LABS: BILIRUBIN,URINE NEG (NEG); CLARITY,URINE CLEAR; COLOR,URINE YELLOW; GLUCOSE,URINE NEG (NEG); NITRITE,URINE NEG (NEG); UROBILINOGEN,URINE 0.2 mg/dL (0.2 mg/dL)
[2019-07-10 09:46] LABS: BACTERIA,URINE FEW /HPF (0-FEW); SQUAMOUS EPITHELIAL CELL,UR FEW /LPF
--- NOTE | 2019-07-10 11:04 | NUR ---
Nursing Note Pt calm and pleasant. Alert to self and situation states "I am leaving here tomorrow. Thank you for all your help." Pt is compliant with medication and cooperative with assessment. C/o tummy ache PRN given as ordered. No agitation. No delusions.
--- NOTE | 2019-07-10 13:35 | NUR ---
WEEKLY ACTIVITY THERAPY NOTE Date of Admission: 06/11/2019 Date of AT Assessment: 06/14/2019 Goal aimed: to increase stress management skills Initial goal: Pt. will participate in all relaxation activities offered. Weekly progress towards goal: 2/4 relaxation specific activities Group participation level: 2 min, 1 mod, 3 full Weekly highlights: fully engaged in spa relaxation on Monday, enjoyed therapy dog on Monday Behaviors observed: increased engagement this week, few anxious moments throughout the week, enjoyable in groups Plan: no change to goal Beneficial adaptations: invitations to group, 1:1 support to engage, thrives in smaller/quiet atmosphere
[2019-07-10 15:32] VITALS: BP 143/82
[2019-07-10] MEDS: traZODone 50 MG TABLET. PO SCH (19:52)
[2019-07-10] MEDS: ATORVASTATIN CALCIUM 20 MG TABLET PO SCH (19:52)
--- NOTE | 2019-07-10 20:50 | NUR ---
Nursing Note: Pt withdrawn to room, lying in bed at shift change. Pt calm, pleasant, and interactive when approached. Pt reported that she wasn't feeling well today but that she feels better now. Pt cooperative with assessment and compliant with medications administered whole.
--- NOTE | 2019-07-10 21:31 | PDOC ---
Exam Note: Zelaelm Note: Please also refer to the separate dictated note~for this date of service dictated separately.~Patient seen individually. Discussed the patient with Nursing staff reviewed the chart.~Reviewed interim history and current functioning. Reviewed vital signs,~Labs/ Radiology~and current medications noted below. Continue current treatment with the changes noted in the dictated addendum note Assessment: Vital Signs/I&O: Vital Signs Date Time Temp Pulse Resp B/P (MAP) Pulse Ox O2 Delivery O2 Flow Rate FiO2 07/10/19 15:32 97.7 88 16 143/82 (102) 97 07/06/19 05:16 Room Air I & O 07/09/19 07/09/19 07/10/19 15:00 23:00 07:00 Intake Total 720 ml 360 ml 100 ml Balance 720 ml 360 ml 100 ml Labs: Laboratory Tests Test 07/10/19 09:28 Urine Collection Type Unknown Urine Color Yellow Urine Clarity Clear Urine pH 6.5 Urine Specific [place] 1.020 Urine Protein Neg (NEG-TRACE) Urine Glucose (UA) Neg mg/dL (NEG) Urine Ketones (Stick) Neg mg/dL (NEG) Urine Blood Neg (NEG) Urine Nitrite Neg (NEG) Urine Bilirubin Neg (NEG) Urine Urobilinogen Dipstick 0.2 mg/dL (0.2 mg/dL) Urine Leukocyte Esterase Trace (NEG) Urine RBC 3-5 /HPF (0-2) Urine WBC 11-20 /HPF (0-4) Urine Squamous Epithelial Cells Few /LPF Urine Bacteria Few /HPF (0-FEW) Current Medications: I have reviewed the current psychotropics carefully including drug interactions. Risk benefit ratio favors no change other than as noted in my dictated progress note. Diagnosis: Problems: (1) Suicidal ideation (2) Medical clearance for psychiatric admission (3) Anxiety disorder (4) Major depressive disorder, recurrent episode (5) Impulse control disorder (6) Panic disorder with agoraphobia and severe panic attacks JESSICA BRANCH MD Jul 10, 2019 21:31
--- NOTE | 2019-07-10 21:42 | PN ---
DATE: 07/09/2019 PSYCHIATRIC PROGRESS NOTE This late entry 07/09/2019 covers elements not covered in my initial note. SUBJECTIVE: I met with the patient evening of 07/09/2019. Per BENNIE Slater, the patient slept reasonably previous night. At night, she is more confused, disorganized, flat affect, anxious. I met with her at length in her room. REVIEW OF SYSTEMS: Has vague somatic symptoms. No CV, , pulmonary, eye system symptoms on review. MENTAL STATUS EXAM: Oriented to herself and situation. She remembered my name. Speech is coherent, repetitive at times somewhat high pitched, abstraction fair, computation impaired, language function intact, attention span short. Mood and affect, lability persists, but improved. LABORATORY DATA: Reviewed. IMPRESSION: Unchanged from initial note. PLAN: Check UA, CBC, chemistry profile to make sure there is no medical cause for her ongoing mood lability since we made several psychotropic medication changes. We will make further changes as clinically indicated. JESSICA BRANCH MD DR: HAYDEN/rm JOB#: [id number] / [id number]
[2019-07-11] MEDS ORDERED: DIVA125C2 PO (00:03)
[2019-07-11] MEDS ORDERED: QUET25TA PO (00:04)
[2019-07-11] MEDS ORDERED: FLUV100C PO (00:07)
[2019-07-11 05:36] VITALS: BP 149/81
[2019-07-11] MEDS: POLYETHYLENE GLYCOL 3350 17 GM PACKET. PO SCH (09:00)
[2019-07-11] MEDS: OMEGA-3 FATTY ACIDS/FISH OIL 1,000 MG CAPSULE. PO SCH (09:02)
[2019-07-11] MEDS: DIVALPROEX 125 MG CAP.SPRINK PO SCH (09:02)
[2019-07-11] MEDS: DOCUSATE SODIUM 100 MG CAPSULE PO SCH (09:02)
[2019-07-11] MEDS: LOSARTAN 50 MG TABLET. PO SCH (09:03)
[2019-07-11] MEDS: ASPIRIN ENTERIC COATED 81 MG TABLET.DR. PO SCH (09:03)
[2019-07-11] MEDS: QUEtiapine 25 MG TABLET. PO SCH ×2 (09:03→16:13)
[2019-07-11] MEDS: CALCIUM CARBONATE 500 MG TABLET PO SCH (09:03)
[2019-07-11] MEDS: APIXABAN 5 MG TABLET. PO SCH (09:03)
--- NOTE | 2019-07-11 10:39 | NUR ---
Nursing note: Pt laying in bed when approached for morning meds and assessment. She was compliant with taking her meds whole and was cooperative with her assessment. She had no complaints at time of assessment. Pt is currently sleeping in her room. Will continue to monitor.
--- NOTE | 2019-07-11 10:51 | NUR ---
CHLOE contacted Sydni at [facility] to discuss pt discharging today. Sydni reports that this is fine and that they have everything ready for her to return. CHLOE and Sydni also discussed things that may help pt there. CHLOE did notify that pt may not be a good fit in the long run and should assist the family in something more like a residential care facility. CHLOE informed Sydni that the dtr would pick pt up sometime in the afternoon as she works until 2 and then will pick pt sister up to assist in the transport.
--- NOTE | 2019-07-11 11:57 | NUR ---
[facility] Social Work Discharge Planning Form Patient Name MARYPATTI Admit Date: 06/11/2019 DISCHARGE PLAN Discharge Destination: Back to [facility] Assessment: N/A Level II Assessment: N/A Transportation: Pt dtr and sister will plan to pick pt up this afternoon. Special Instructions/Notes: Please fax over medication list and discharge orders over to the PCP and facility listed below. DISCHARGE TO FACILITY Facility: [facility] Address: [address] [place] [address] Contact Name: Sydni Contact Name: Please call and ask for the nurse who is accepting pt upon admission. PCP: [facility] Address: [address] [place] [address] [address], [place] [address] SW sent referral packet for psychiatric services. The office will plan to contact you with the appointment.
[2019-07-11 16:03] VITALS: BP 146/79
--- NOTE | 2019-07-11 16:57 | NUR ---
Transition Record was faxed to follow-up provider with the following elements: Reason for admission, procedures, tests, principal diagnosis, pending studies, patient instructions, 26/12 contact information for unit, phone number to obtain pending test results, plan for follow-up care, physician follow-up, advanced directive information, and medication list with dose, duration and instructions. This information was included in the following documents: History and physical, lab results, study results, progress notes, social work planning form, DC instruction form, patient visit summary, and medication reconciliation form. Date & time record faxed: 07/11/2019 @ 0012 Record faxed to: [facility] @ [phone] Record discussed with/ report given to: Meaghan @ [phone]
--- NOTE | 2019-07-11 21:20 | PDOC ---
Exam Note: Zelalem Note: Please also refer to the separate dictated note~for this date of service dictated separately.~Patient seen individually. Discussed the patient with Nursing staff reviewed the chart.~Reviewed interim history and current functioning. Reviewed vital signs,~Labs/ Radiology~and current medications noted below. Continue current treatment with the changes noted in the dictated addendum note Assessment: Vital Signs/I&O: Vital Signs Date Time Temp Pulse Resp B/P (MAP) Pulse Ox O2 Delivery O2 Flow Rate FiO2 07/11/19 16:03 97.8 77 16 146/79 (101) 95 07/11/19 05:36 Room Air I & O 07/10/19 07/10/19 07/11/19 15:00 23:00 07:00 Intake Total 480 ml 480 ml Balance 480 ml 480 ml Current Medications: I have reviewed the current psychotropics carefully including drug interactions. Risk benefit ratio favors no change other than as noted in my dictated progress note. Diagnosis: Problems: (1) Suicidal ideation (2) Medical clearance for psychiatric admission (3) Anxiety disorder (4) Major depressive disorder, recurrent episode (5) Impulse control disorder (6) Panic disorder with agoraphobia and severe panic attacks JESSICA BRANCH MD Jul 11, 2019 21:20
--- NOTE | 2019-07-12 08:40 | PN ---
DATE: 07/10/2019 PSYCHIATRIC PROGRESS NOTE This late entry 07/10/2019 covers elements not covered in my initial note. SUBJECTIVE: I met with the patient evening of 07/10/2019. Per BENNIE Shin, the patient slept 9 hours previous night. She continues to be somewhat loud at times and her speech with repetitive speech and echolalia, but this has improved. She is complaining of some nausea and received Maalox p.r.n. REVIEW OF SYSTEMS: Ambulation impaired with walker. Complains of nausea. No CV, , pulmonary, eye system symptoms on review. She has vague somatic symptoms. MENTAL STATUS EXAM: Reasonably oriented. Speech is coherent and little pressured at times. Abstraction fair, computation impaired, language function intact. Mood and affect remain somewhat anxious, labile. No suicidal or homicidal ideation. LABORATORY DATA: Reviewed. IMPRESSION: Unchanged from initial note. PLAN: No change from initial note. Possible transition back to assisted living, 07/11/2019. JESSICA BRANCH MD DR: HAYDEN/rm JOB#: [id number] / [id number]
--- NOTE | 2019-07-12 08:49 | DS ---
DATE OF DISCHARGE: 07/11/2019 DISCHARGE SUMMARY AND PSYCHIATRIC PROGRESS NOTE This late entry 07/11/2019 covers elements not covered in my initial note. REASON FOR ADMISSION: Please refer to the admission history for details. Briefly, the patient is a 78-year-old female referred to us from [facility] by her primary care physician after she was suicidal and attempted to throw herself down the stairs. On 05/29, she tried to jump out of a moving car. She has been increasingly anxious, obsessive and marked mood lability, having increased outbursts, being tearful, labile in her mood, repeatedly screaming for help. Behaviors were deemed dangerous, unmanageable, had failed outpatient psychiatric interventions resulting in this referral. SIGNIFICANT FINDINGS AND CLINICAL COURSE: Following admission, the patient was seen daily individually by myself from a psychiatric standpoint, medical followup with Dr. Torres. The patient was extremely obsessive, ruminative, anxious, loud, labile in her mood and depressed. Adjustments were made in her psychotropics and after several changes, she finally seemed to respond to a combination of Seroquel 25 mg b.i.d. 75 mg at bedtime, Luvox 150 mg a day, Zyprexa p.r.n., trazodone 25 mg at bedtime, Depakote Sprinkles 375 mg b.i.d. with a Valproic acid level therapeutic at 68. Gradually mood appeared to stabilize. She was much more appropriate, less anxious. Prior to discharge on 07/11/2019, ambulation impaired with walker. No CV, , pulmonary, eye system symptoms on review. She has vague somatic symptoms. MENTAL STATUS EXAM: Reasonably oriented. Clearly remembered my name. Speech coherent, less pressured. Abstraction fair, computation impaired, language function intact. Attention span improved. Mood and affect improved, less labile. No suicidal ideation. CONDITION AT DISCHARGE: Improved. FINAL DIAGNOSES: Major depressive disorder, recurrent, in partial remission, obsessive compulsive disorder, anxiety disorder, unspecified, impulse control disorder, rule out bipolar disorder, unspecified. Rest unchanged from admission. DISCHARGE MEDICATIONS: Please refer to the MRAD. DISCHARGE INSTRUCTIONS: Outpatient psychiatric and medical followup at the facility as arranged prior to discharge. Time for discharge day management greater than 30 minutes. MAN Beverley BRANCH MD DR: HAYDEN/rm JOB#: [id number] / [id number]
== END 2019-07-11 17:14 | DRG 885 ==
LOC: ER 14:29 → GEROPSY 19:22
PROVIDERS: ADMIT Psychiatry & Neurology Psychiatry; ATTEND Psychiatry & Neurology Psychiatry
DX: F33.41 Major depressive disorder, recurrent, in partial remission (principal); R45.851 Suicidal ideations; E78.5 Hyperlipidemia, unspecified; F03.90 Unspecified dementia, unspecified severity, without behavioral disturbance, psychotic disturbance, mood disturbance, and anxiety; F42.9 Obsessive-compulsive disorder, unspecified; F63.9 Impulse disorder, unspecified; I10 Essential (primary) hypertension; Z86.73 Personal history of transient ischemic attack (TIA), and cerebral infarction without residual deficits; Z79.899 Other long term (current) drug therapy; Z85.3 Personal history of malignant neoplasm of breast; Z90.11 Acquired absence of right breast and nipple
CPT/HCPCS: 36415; 80053; 80061; 80164; 81001; 82306; 82607; 83036; 83540; 83550; 83735; 84436; 84443; 84480; 85025; 85027; 86592; 87086; 93005; 99285-25

== ENCOUNTER 2019-10-04 17:59 | Inpatient (IN) | payer BC, MEDICARE, OTHER ==
[~2019-10-04] VITALS: Ht 152.4 cm; Wt 50.1 kg
[~2019-10-04 17:59] MED LIST: ACET325T9 PO; APIX5TAB3 PO; ASPI-612 PO; ATOR20TA58 PO; BUSP10TA PO; BUSP15TA PO; BUSP5TAB PO; CALC500T13 PO; CALC500T31 PO; CALC600T23 PO; CHOL200027 PO; CHOL500021 PO; DIVA125C2 PO; DOCU100C28 PO; FLUV100C PO; HYDR-2155 PO; LOSA50TA86 PO; MAGN24003 PO; MAGN30OR PO; METH28OI2 TP; OLAN5TAB5 PO; OMEG-117 PO; OMEG1CAP50 PO; POLY17PO5 PO; QUET25TA PO; QUET25TA5 PO; TRAZ-120 PO
--- NOTE | 2019-10-04 18:32 | PHYS DOC ---
Past History Past Medical History: Anxiety, CVA, Dementia, Depression Past Surgical History: No Surgical History Alcohol Use: None Drug Use: None General Adult EDM: Chief Complaint: ALTERED MENTAL STATUS HPI: HPI: Patient is a 78 year old female who presents via EMS for evaluation of increasing confusion and dementia symptoms. Patient currently is a resident at [facility] near . Patient had a fall last week and has a large bruise and hematoma to her left eyebrow and bruising to her left knee. Patient has recently been on Eliquis. Patient is a poor historian. Patient is here for evaluation and possible placement in the geriatric psychiatric unit. Review of Systems: Review of Systems: Constitutional: confused, has difficulty answering Eyes: confused, has difficulty answering HENT: Denies nasal congestion Respiratory: Denies cough or has mild shortness of breath Cardiovascular: Denies chest pain GI: no reported abdominal pain, nausea, vomiting or diarrhea : confused, has difficulty answering Musculoskeletal: Large hematoma and bruising to left knee Integument: Bruises from multiple falls Neurologic: confused, has difficulty answering Endocrine: confused, has difficulty answering Lymphatic: confused, has difficulty answering Psychiatric: anxious, dementia Heart Score: Risk Factors: Risk Factors: DM, Current or recent (<one month) smoker, HTN, HLP, family history of CAD, obesity. Risk Scores: Score 0 - 3: 2.5% MACE over next 6 weeks - Discharge Home Score 4 - 6: 20.3% MACE over next 6 weeks - Admit for Clinical Observation Score 7 - 10: 72.7% MACE over next 6 weeks - Early Invasive Strategies Allergies: Allergies: Allergies Coded Allergies Type Severity Reaction Last Updated Verified No Known Drug Allergies 06/11/19 No Physical Exam: PE: Constitutional: Thin, cachectic, mild acute distress, non-toxic appearance. [] HENT: Large frontal head hematoma above left eye bilateral external ears normal, oropharynx moist, nose normal. [] Eyes: PERRL, EOMI, conjunctiva normal, no discharge. [] Neck: Normal range of motion, no tenderness, supple. [] Cardiovascular:Heart rate regular rhythm [] Lungs & Thorax: Bilateral breath sounds clear to auscultation [] Abdomen: Bowel sounds normal, soft, no tenderness, no masses. [] Skin: Warm, dry, large hematoma above left eye, significant swelling and ecchymosis around left knee [] Back: No tenderness, [] Extremities: no cyanosis, no clubbing, ROM intact, some edema. [] Neurologic: confused, yells out, normal motor function, no focal deficits noted. [] Psychologic: anxious affect, dementia [] Current Patient Data: Vital Signs: Vital Signs Date Time Temp Pulse Resp B/P (MAP) Pulse Ox O2 Delivery O2 Flow Rate FiO2 10/04/19 18:19 97.8 67 18 154/95 (114) 98 Room Air EKG: EKG: EKG read at 1826 normal sinus rhythm, rate 86, essentially normal EKG, not STEMI Radiology/Procedures: Radiology/Procedures: [address] [address] IMAGING REPORT Signed PATIENT: MARYNOVEMBER ACCOUNT: [id number] : 1940 LOCATION: ER AGE: 78 SEX: F EXAM STATUS: PRE ER ORD. PHYSICIAN: PARRISH GALLO DO REASON: FALL PROCEDURE: CT HEAD AND CERVICAL SPINE WO EXAM: CT HEAD WITHOUT IV CONTRAST CLINICAL HISTORY: Fall COMPARISON: 05/25/2019 09/28/2019 TECHNIQUE: Routine CT of the head without contrast. Soft tissues and bone windows were reviewed. PQRS compliance statement - One or more of the following individualized dose reduction techniques were utilized for this study: 1. Automated exposure control 2. Adjustment of the mA and/or kV according to patient size 3. Use of iterative reconstruction technique FINDINGS: There is no evidence of hemorrhage, mass or extra-axial fluid collection. Right parietotemporal encephalomalacia is grossly stable. Otherwise lindquist-white differentiation is grossly maintained. Subcortical, periventricular and deep white matter hypoattenuation likely changes of chronic small vessel disease. There is no mass effect or shift of the intracranial structures. There is prominence of the ventricles and sulci bilaterally consistent with generalized atrophy. The cerebellum and brainstem are unremarkable. The calvarium demonstrates no evidence of fracture or focal lesion. There is normal aeration of the visualized paranasal sinuses and mastoid air cells. The visualized portions of the orbits are normal. Soft tissue swelling and hematoma overlying the left frontal region. Atherosclerotic calcifications of the intracranial internal carotid and vertebral arteries is seen. IMPRESSION: 1. No evidence for acute intracranial process. 2. Chronic right parietotemporal encephalomalacia is stable. Bibasilar changes likely chronic small vessel disease. 3. Soft tissue swelling and hematoma overlying the left orbit/frontal region. EXAM: CT CERVICAL SPINE WITHOUT IV CONTRAST CLINICAL HISTORY: Fall COMPARISON: None available. TECHNIQUE: Helical CT of the cervical spine was performed. Axial, coronal and sagittal reformatted images were also performed. PQRS compliance statement - One or more of the following individualized dose reduction techniques were utilized for this study: 1. Automated exposure control 2. Adjustment of the mA and/or kV according to patient size 3. Use of iterative reconstruction technique FINDINGS: Vertebral body heights are preserved. Moderate C5-6, moderate to severe C6-7 disc height loss. Associated endplate osteophytes anteriorly and posteriorly. Trace anterolisthesis C4 on C5. Atlantodental degenerative changes are seen. No acute fracture. 2.2 cm right thyroid nodule is seen, stable to 12/14/2018. IMPRESSION: 1. Multilevel spondylosis as above 2. Negative acute fracture. 3. Right thyroid nodule is stable. Electronically signed by: Leonidas Park MD (10/04/2019 6:32 PM) [facility] DICTATED AND SIGNED BY: LEONIDAS PARK MD DATE: 10/04/191831 CC: EL MARKS; PARRISH GALLO DO ~ [place] [address] IMAGING REPORT Signed PATIENT: MARYPATTI ACCOUNT: [id number] : 1940 LOCATION: ER AGE: 78 SEX: F EXAM STATUS: PRE ER ORD. PHYSICIAN: PARRISH GALLO DO REASON: short of air, fall PROCEDURE: CHEST AP ONLY Exam: Chest one view INDICATION: Short of air TECHNIQUE: Frontal view of the chest Comparisons: None FINDINGS: The cardiomediastinal silhouette and pulmonary vessels are within normal limits. The lung and pleural spaces are clear. IMPRESSION: No acute cardiopulmonary process. Electronically signed by: Demian Acosta MD (10/04/2019 7:11 PM) [id number] DICTATED AND SIGNED BY: DEMIAN ACOSTA MD DATE: 10/04/191910 CC: EL MARKS; PARRISH GALLO DO ~ [place] [address] IMAGING REPORT Signed PATIENT: PATTI HERNANDEZ ACCOUNT: [id number] : 1940 LOCATION: ER AGE: 78 SEX: F EXAM STATUS: REG ER ORD. PHYSICIAN: PARRISH GALLO DO REASON: pain, fall, injury PROCEDURE: KNEE LEFT 3V EXAM: AP, oblique and lateral views left knee DATE: 10/04/2019 6:16 PM INDICATION: Pain, fall, injury COMPARISON: No Prior FINDINGS: There is no evidence for acute fracture or dislocation although evaluation limited given degree of osteopenia. No knee joint effusion. Marked prepatellar soft tissue swelling is seen. Underlying patellar tendon integrity cannot be assessed given the associated soft tissue swelling. Vascular calcifications are seen. IMPRESSION: 1. No evidence of acute fracture or dislocation. 2. Marked prepatellar soft tissue swelling. If there is clinical concern for patellar tendon injury or internal derangement of the knee, MRI can be performed. 3. Vascular calcifications are seen. Electronically signed by: Leonidas Park MD (10/04/2019 8:10 PM) [facility] DICTATED AND SIGNED BY: LEONIDAS PARK MD DATE: 10/04/192009 CC: EL MARKS; PARRISH GALLO DO ~ Course & Med Decision Making: Course & Med Decision Making Pertinent Labs and Imaging studies reviewed. (See chart for details) 2100 stable, clinically unchanged at this time. Hospitalist service was contacted and patient will be admitted for observation to MedSur unit. We will hold her Ildefonso Bernabe Disclaimer: Srinivasa Disclaimer: This electronic medical record was generated, in whole or in part, using a voice recognition dictation system. Departure Departure: Impression: Primary Impression: Altered mental status Additional Impressions: Head contusion Knee contusion Disposition: ADMITTED INPATIENT Admitting Physician: Ho, Som Condition: STABLE Referrals: EL MARKS (PCP) PARRISH GALLO DO October 04, 2019 18:32
--- NOTE | 2019-10-04 18:35 | RAD ---
EXAM: CT HEAD WITHOUT IV CONTRAST CLINICAL HISTORY: Fall COMPARISON: 05/25/2019 09/28/2019 TECHNIQUE: Routine CT of the head without contrast. Soft tissues and bone windows were reviewed. PQRS compliance statement - One or more of the following individualized dose reduction techniques were utilized for this study: 1. Automated exposure control 2. Adjustment of the mA and/or kV according to patient size 3. Use of iterative reconstruction technique FINDINGS: There is no evidence of hemorrhage, mass or extra-axial fluid collection. Right parietotemporal encephalomalacia is grossly stable. Otherwise lindquist-white differentiation is grossly maintained. Subcortical, periventricular and deep white matter hypoattenuation likely changes of chronic small vessel disease. There is no mass effect or shift of the intracranial structures. There is prominence of the ventricles and sulci bilaterally consistent with generalized atrophy. The cerebellum and brainstem are unremarkable. The calvarium demonstrates no evidence of fracture or focal lesion. There is normal aeration of the visualized paranasal sinuses and mastoid air cells. The visualized portions of the orbits are normal. Soft tissue swelling and hematoma overlying the left frontal region. Atherosclerotic calcifications of the intracranial internal carotid and vertebral arteries is seen. IMPRESSION: 1. No evidence for acute intracranial process. 2. Chronic right parietotemporal encephalomalacia is stable. Bibasilar changes likely chronic small vessel disease. 3. Soft tissue swelling and hematoma overlying the left orbit/frontal region. EXAM: CT CERVICAL SPINE WITHOUT IV CONTRAST CLINICAL HISTORY: Fall COMPARISON: None available. TECHNIQUE: Helical CT of the cervical spine was performed. Axial, coronal and sagittal reformatted images were also performed. PQRS compliance statement - One or more of the following individualized dose reduction techniques were utilized for this study: 1. Automated exposure control 2. Adjustment of the mA and/or kV according to patient size 3. Use of iterative reconstruction technique FINDINGS: Vertebral body heights are preserved. Moderate C5-6, moderate to severe C6-7 disc height loss. Associated endplate osteophytes anteriorly and posteriorly. Trace anterolisthesis C4 on C5. Atlantodental degenerative changes are seen. No acute fracture. 2.2 cm right thyroid nodule is seen, stable to 12/14/2018. IMPRESSION: 1. Multilevel spondylosis as above 2. Negative acute fracture. 3. Right thyroid nodule is stable. Electronically signed by: Leonidas Orosco MD (10/04/2019 6:32 PM) ELISE
[2019-10-04 19:10] LABS: BASO % 0 % (0-3); EOS % 0 % (0-3); HEMATOCRIT 23.5 % (36.0-47.0); LYMPH # 1.8 x10^3/uL (1.0-4.8); LYMPH % 20 % (24-48); MEAN CORPUSCULAR HEMOGLOBIN 30 pg (25-35); MEAN CORPUSCULAR HGB CONC 34 g/dL (31-37); MEAN CORPUSCULAR VOLUME 90 fL (79-100); MONO % 12 % (0-9); NEUT # 6.1 x10^3uL (1.8-7.7); NEUT % 67 % (31-73); PLATELET COUNT 195 x10^3/uL (140-400); RED BLOOD COUNT 2.62 x10^6/uL (3.50-5.40); RED CELL DISTRIBUTION WIDTH 16.1 % (11.5-14.5)
--- NOTE | 2019-10-04 19:14 | RAD ---
Exam: Chest one view INDICATION: Short of air TECHNIQUE: Frontal view of the chest Comparisons: None FINDINGS: The cardiomediastinal silhouette and pulmonary vessels are within normal limits. The lung and pleural spaces are clear. IMPRESSION: No acute cardiopulmonary process. Electronically signed by: Demian Puri MD (10/04/2019 7:11 PM) [id number]
[2019-10-04 19:18] LABS: CALCIUM 9.5 mg/dL (8.5-10.1); CREATININE 1.1 mg/dL (0.6-1.0); GFR 47.9; POTASSIUM 4.1 mmol/L (3.5-5.1)
[2019-10-04 19:25] LABS: ALBUMIN 2.7 g/dL (3.4-5.0); ALBUMIN/GLOBULIN RATIO 0.8 (1.0-1.7); TOTAL BILIRUBIN 1.2 mg/dL (0.2-1.0); TOTAL PROTEIN 5.9 g/dL (6.4-8.2)
[2019-10-04 19:34] LABS: BILIRUBIN,URINE NEG (NEG); CLARITY,URINE HAZY; COLOR,URINE YELLOW; GLUCOSE,URINE NEG (NEG)
[2019-10-04 19:35] LABS: BACTERIA,URINE 0 /HPF (0-FEW); NITRITE,URINE NEG (NEG); SQUAMOUS EPITHELIAL CELL,UR OCC /LPF; UROBILINOGEN,URINE 0.2 mg/dL (0.2 mg/dL)
[2019-10-04 19:36] LABS: HYALINE CASTS, URINE FEW /HPF
--- NOTE | 2019-10-04 20:13 | RAD ---
EXAM: AP, oblique and lateral views left knee DATE: 10/04/2019 6:16 PM INDICATION: Pain, fall, injury COMPARISON: No Prior FINDINGS: There is no evidence for acute fracture or dislocation although evaluation limited given degree of osteopenia. No knee joint effusion. Marked prepatellar soft tissue swelling is seen. Underlying patellar tendon integrity cannot be assessed given the associated soft tissue swelling. Vascular calcifications are seen. IMPRESSION: 1. No evidence of acute fracture or dislocation. 2. Marked prepatellar soft tissue swelling. If there is clinical concern for patellar tendon injury or internal derangement of the knee, MRI can be performed. 3. Vascular calcifications are seen. Electronically signed by: Leonidas Orosco MD (10/04/2019 8:10 PM) ELISE
[2019-10-04] MEDS ORDERED: ONDANSETRON PF 4 MG/2 ML VIAL. IVP PRN (21:15)
[2019-10-04 23:18] VITALS: BP 116/69
[2019-10-04] MEDS ORDERED: ACETAMINOPHEN 325 MG TABLET PO ONE (23:51)
[2019-10-05] MEDS ORDERED: ACETAMINOPHEN 325 MG TABLET PO ONE (00:15)
[2019-10-05 05:29] VITALS: BP 100/63
[2019-10-05] MEDS ORDERED: APIXABAN 5 MG TABLET. PO SCH (09:00)
[2019-10-05] MEDS: DIVALPROEX 125 MG CAP.SPRINK PO SCH ×2 (09:00→21:00)
[2019-10-05] MEDS: LOSARTAN 50 MG TABLET. PO SCH (09:00)
--- NOTE | 2019-10-05 09:02 | HP ---
ADMIT DATE: ADMISSION HISTORY AND PHYSICAL ATTENDING PHYSICIAN: John Lemon MD CHIEF COMPLAINT: Altered mentation. HISTORY OF PRESENT ILLNESS: The patient is a 78-year-old female with multiple medical and psychiatric diagnoses. She was brought in by EMS with frequent falls. She lives in assisted living situation. No family is here. Much of the history is obtained from the chart. She is very demented and delusional; we could not get much history. Clearly, she has all the signs of frequent falls, multiple contusions. She has periorbital ecchymosis and a large hematoma over the left orbit. She is on Eliquis for stroke prevention. Multiple other medical issues and medicines were reviewed. She is admitted then with the plan of simplifying her meds getting her to stabilize medically and hopefully going to the Senior Diagnostic Unit. PAST MEDICAL HISTORY: Significant for frequent falls, major depressive disorder, impulse control disorder, panic disorder with agoraphobia, severe anxiety, frequent falls and suicidal ideation. ALLERGIES: She has no known drug allergies. CURRENT MEDICINES: Include Tylenol, Eliquis 5 mg b.i.d., aspirin, Lipitor, calcium, cholecalciferol, Depakote, docusate, Fluvax, hydrocodone, losartan, magnesium, menthol, Zyprexa, omega-3 fatty acid, MiraLax, Seroquel and trazodone. FAMILY HISTORY: Unobtainable. REVIEW OF SYSTEMS: Unobtainable. PAST SURGICAL HISTORY: Unknown. PHYSICAL EXAMINATION: GENERAL: When I saw her, this is an elderly frail female who appears with multiple ecchymoses on her face. INITIAL VITAL SIGNS: Showed a blood pressure of 116/69, pulse was 70 per minute, temperature 98.7 degrees Fahrenheit, oxygen saturation 97% on room air. HEENT: Trauma. Large left periorbital ecchymoses with hematoma. She has various bruising and ecchymosis of varying degrees along the left side of her face and neck. Her pupils are otherwise reactive. Extraocular muscles were intact. Oropharynx is clear. NECK: Supple, no bruits identified. LUNGS: Shallow respirations. CARDIOVASCULAR: Showed distant heart tones. No obvious gallops. Peripheral pulses are palpable and full. ABDOMEN: Soft, scaphoid, nontender, no organomegaly. Bowel sounds are hypoactive. EXTREMITIES: Show no cyanosis or edema. NEUROLOGIC: Showing very confused and disoriented. She also has an echolalia. PERTINENT LABORATORY STUDIES: Hemoglobin 8.0 g/dL with normal indices. Chemistry panel was fairly unremarkable. Creatinine is 1.1 mg/dL. Cardiac enzymes negative. Urinalysis, occasional mucus and casts. The obligatory CT of the head done multiple times showed no hemorrhage or stroke, soft tissue swelling hematoma overlying the left frontal orbital region. There is encephalomalacia and atrophy. Chest x-ray demonstrated no decompensation or infiltrate. Left knee film showed no obvious fractures or dislocation. ASSESSMENT: 1. A 78-year-old female with multiple falls. She has reached the point in her life she cannot take care of herself. 2. Major depression with dementia. 3. Chronic anticoagulation. 4. Anemia of chronic disease. 5. History of suicidal ideation in the past. 6. Significant anxiety with agoraphobia. PLAN: 1. Admit to the inpatient unit. 2. I have simplified her meds and I will hold her aspirin and Eliquis for now giving her hematomas and falling. 3. Continue some psych meds. 4. We should put a consult into Dr. Alvarado to see if we can take her at the senior unit next week. 5. Diet as tolerated. 6. Follow up chemistries and CBCs. JOHN LEMON MD DR: SARAI/rm JOB#: [id number] / [id number]
[2019-10-05 11:43] VITALS: BP 106/56
--- NOTE | 2019-10-05 11:51 | EKG ---
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
[2019-10-05] MEDS: ACETAMINOPHEN 500 MG TABLET PO PRN ×2 (13:55→21:01)
[2019-10-05 15:54] VITALS: BP 107/67
[2019-10-05 19:32] VITALS: BP 103/64
[2019-10-06] VITALS (7 sets, daily range): BP systolic 102–159; BP diastolic 50–71
[2019-10-06] MEDS: ACETAMINOPHEN 500 MG TABLET PO PRN ×3 (04:46→20:24)
[2019-10-06] MEDS: LOSARTAN 50 MG TABLET. PO SCH (07:56)
[2019-10-06] MEDS: DIVALPROEX 125 MG CAP.SPRINK PO SCH ×2 (07:56→20:24)
--- NOTE | 2019-10-06 11:07 | PN ---
DATE: 10/06/2019 ATTENDING PHYSICIAN: Dr. Lemon. CHIEF COMPLAINT: Altered mentation. SUBJECTIVE: The patient has her sheets over her head. She ate some breakfast. She is calm. There is no obvious distress. When I woke her up, her speech was rambling and she was having echolalia. OBJECTIVE FINDINGS: VITAL SIGNS: Her blood pressure today is improved to 124/66, her pulse is 86 and regular, temperature 98.1 degrees Fahrenheit, and room air saturation were 98%. HEENT: Significant trauma with ecchymosis. She has a large periorbital hematoma over the left eyelid. There is extensive bruising throughout the side of her face and down to her neck. Her pupils are reactive. The sclerae are nonicteric. The oropharynx is clear. She is edentulous. There are no lesions. NECK: Supple. LUNGS: Good breath sounds. CARDIOVASCULAR: Showed regular rhythm. There is early soft grade 2 systolic murmur at the left sternal border. It does not radiate to the carotids nor the axilla. Peripheral pulses are palpable and full. ABDOMEN: Scaphoid, nontender, no organomegaly. Bowel sounds are hypoactive. EXTREMITIES: Show no cyanosis or edema. Significant muscle wasting. NEUROLOGIC: The patient is profoundly demented. She is fairly alert. ASSESSMENT: 1. A 78-year-old female with frequent falls. 2. Profound dementia. 3. Underlying depression. 4. Anemia of chronic disease. 5. Ecchymoses secondary to fall. 6. Chronic anticoagulation. PLAN: 1. Decrease losartan dose to 25 mg daily. 2. Advance diet as tolerated. 3. Hold antipsychotic. 4. retail office manager to review the case tomorrow. She will need a higher level of care from her current assisted living. 5. I will minimize her antipsychotic medications. JOHN LEMON MD DR: SARAI/rm JOB#: [id number] / [id number]
[2019-10-07] VITALS (13 sets, daily range): BP systolic 101–157; BP diastolic 50–81
[2019-10-07] MEDS: ACETAMINOPHEN 500 MG TABLET PO PRN ×3 (02:19→14:34)
[2019-10-07 06:11] LABS: BASO % 1 % (0-3); EOS # 0.1 x10^3/uL (0.0-0.7); EOS % 1 % (0-3); LYMPH # 2.5 x10^3/uL (1.0-4.8); LYMPH % 29 % (24-48); MEAN CORPUSCULAR HEMOGLOBIN 31 pg (25-35); MEAN CORPUSCULAR HGB CONC 34 g/dL (31-37); MEAN CORPUSCULAR VOLUME 91 fL (79-100); MONO # 1.1 x10^3/uL (0.0-1.1); MONO % 13 % (0-9); NEUT # 4.9 x10^3uL (1.8-7.7); NEUT % 57 % (31-73); PLATELET COUNT 241 x10^3/uL (140-400); RED BLOOD COUNT 1.81 x10^6/uL (3.50-5.40); RED CELL DISTRIBUTION WIDTH 15.8 % (11.5-14.5); WHITE BLOOD COUNT 8.6 x10^3/uL (4.0-11.0)
[2019-10-07 06:12] LABS: CALCIUM 8.5 mg/dL (8.5-10.1); GFR 53.5; POTASSIUM 3.9 mmol/L (3.5-5.1)
[2019-10-07 06:25] LABS: HEMOGLOBIN 5.6 g/dL (12.0-15.5)
[2019-10-07 06:26] LABS: HEMATOCRIT 16.5 % (36.0-47.0)
[2019-10-07] MEDS: LOSARTAN 25 MG TABLET. PO SCH (08:03)
[2019-10-07] MEDS: DIVALPROEX 125 MG CAP.SPRINK PO SCH ×2 (08:03→20:11)
--- NOTE | 2019-10-07 09:12 | PN ---
DATE: 10/07/2019 SUBJECTIVE: The patient is much more alert today. We actually had a fairly normal conversation. She remembers who her daughter and her sister were. I told her that I had conversation with them. She cannot understand why they are not here to visit her. She is still having some rambling speech and echolalia when no one is in the room. OBJECTIVE: VITAL SIGNS: Her blood pressure is up today to 134/72, pulse is regular. She is afebrile. Oxygen saturation 92% on room air. LABORATORY DATA: Hemoglobin has dropped to 5.6 g/dL. White count is adequate. Part of this dilutional part of it is due to blood loss. HEENT: Significant trauma with varying ecchymoses. The large periorbital hematoma over her left eyelid has subsided a bit. It is not nearly as tight. There is extensive bruising throughout her left side of her face and down her neck. The pupils are reactive. The sclerae are nonicteric. The oropharynx is clear. She is edentulous. There are no lesions in the mucous membrane. NECK: Supple. There are no bruits. LUNGS: Shows good breath sounds. CARDIOVASCULAR: Showed regular heart tones. There is a very early soft grade 2 systolic ejection murmur at the left sternal border. It does not radiate to the carotids nor does it radiate to the axilla. Peripheral pulses are palpable and full. ABDOMEN: Scaphoid, nontender, no organomegaly. Bowel sounds are normoactive. EXTREMITIES: Showed no cyanosis. There is significant muscle wasting. NEUROLOGIC: The patient is less confused today. She still remains demented. She is fairly alert at this time. ASSESSMENT: 1. A 78-year-old female with frequent falls. 2. Profound dementia. 3. Underlying depression with anxiety. 4. Chronic anemia with acute anemia due to blood loss from her anticoagulation. 5. Multiple ecchymoses secondary to fall. 6. Chronic anticoagulation medications held. PLAN: 1. I decreased her losartan yesterday to 25 mg daily and her blood pressure is adequate. 2. We will advance her diet as tolerated. 3. Antipsychotic medications held. 4. Type and cross for 2 units of packed red cells to transfuse to increase oxygen carrying capacity in this symptomatic patient. 5. Physical therapy consult. 6. Occupational therapy consult. 7. I will minimize her antipsychotic medications. 8. recycling operations manager discussed with the daughter regarding placement, and she will need a higher level of care from her current assisted living. JOHN LEMON MD DR: SARAI/mr JOB#: [id number] / [id number]
[2019-10-07 18:45] LABS: BASO % 1 % (0-3); EOS # 0.1 x10^3/uL (0.0-0.7); EOS % 1 % (0-3); HEMATOCRIT 33.8 % (36.0-47.0); LYMPH # 1.5 x10^3/uL (1.0-4.8); LYMPH % 22 % (24-48); MEAN CORPUSCULAR HEMOGLOBIN 31 pg (25-35); MEAN CORPUSCULAR HGB CONC 34 g/dL (31-37); MEAN CORPUSCULAR VOLUME 93 fL (79-100); MONO # 0.9 x10^3/uL (0.0-1.1); MONO % 14 % (0-9); NEUT # 4.2 x10^3uL (1.8-7.7); NEUT % 63 % (31-73); PLATELET COUNT 249 x10^3/uL (140-400); RED BLOOD COUNT 3.64 x10^6/uL (3.50-5.40); RED CELL DISTRIBUTION WIDTH 15.6 % (11.5-14.5); WHITE BLOOD COUNT 6.7 x10^3/uL (4.0-11.0)
[2019-10-07 18:48] LABS: HEMOGLOBIN 11.4 g/dL (12.0-15.5)
[2019-10-07] MEDS: traMADol 50 MG TABLET PO PRN (20:11)
[2019-10-08 05:59] VITALS: BP 146/74
[2019-10-08] MEDS: LOSARTAN 25 MG TABLET. PO SCH (07:56)
[2019-10-08] MEDS: DIVALPROEX 125 MG CAP.SPRINK PO SCH ×2 (07:56→21:09)
--- NOTE | 2019-10-08 09:16 | PN ---
DATE: 10/08/2019 ATTENDING PHYSICIAN: Dr. Lemon. SUBJECTIVE: The patient is alert. She is not rambling as much. We had a fairly normal conversation. She is still at baseline, remains confused. OBJECTIVE FINDINGS: VITAL SIGNS: Her blood pressure today is 146/74, pulse is 81 and regular, temperature 97.7 degrees Fahrenheit, oxygen saturation 97% on room air. HEENT: The periorbital swelling has diminished and not nearly as bad. The pupils are reactive. Sclerae nonicteric. Extraocular muscles intact. NECK: Supple. LUNGS: Clear. CARDIOVASCULAR: Showed regular heart tones. She has had a previous right mastectomy. ABDOMEN: Soft. EXTREMITIES: Showed no cyanosis. SKIN: The significant bruising along the left side of her face and neck are gradually fading and less prominent. LABORATORY DATA: Hemoglobin repeated today is up to 11.4 g/dL. White count is adequate. ASSESSMENT: 1. A 78-year-old female from independent living, admitted with altered mentation, improved. 2. Frequent falls with trauma. 3. Coagulopathy due to Eliquis. This has been stopped. 4. Acute on chronic anemia, transfuse, increase the oxygen carrying capacity. Blood counts are often stable. 5. Underlying depression with anxiety. 6. Essential hypertension, medications have been adjusted. 7. Polypharmacy. PLAN: 1. We will continue her decreased dose of losartan at 25 mg daily. 2. Diet advanced to a pureed, she only has four upper teeth and has no ability to chew. 3. Antipsychotic medications have been held. 4. Follow up CBC. 5. Physical therapy consultation. 6. Occupational therapy consult. 7. We will discuss with the daughter higher level of care as to where she wants her mom sent to. I do not believe that assisted living as an option as she has fallen so many times. We do note today that she is on [employer] advantage and this will not pay for Senior diagnostic unit. JOHN LEMON MD DR: SARAI/rm JOB#: [id number] / [id number]
[2019-10-08] MEDS: ACETAMINOPHEN 500 MG TABLET PO PRN (09:19)
[2019-10-08 11:14] VITALS: BP 147/85
[2019-10-08] MEDS ORDERED: ALPRAZolam 0.25 MG TABLET PO PRN (11:30)
[2019-10-08 16:17] VITALS: BP 142/61
[2019-10-08 19:33] VITALS: BP 134/59
[2019-10-08] MEDS: ALPRAZolam 0.25 MG TABLET PO SCH (21:09)
[2019-10-08 22:56] VITALS: BP 152/63
[2019-10-08] MEDS: traMADol 50 MG TABLET PO PRN (22:56)
[2019-10-09 06:18] VITALS: BP 154/79
[2019-10-09] MEDS: ALPRAZolam 0.25 MG TABLET PO SCH ×2 (08:28→14:00)
[2019-10-09] MEDS: DIVALPROEX 125 MG CAP.SPRINK PO SCH (08:29)
[2019-10-09] MEDS: LOSARTAN 25 MG TABLET. PO SCH (08:29)
[2019-10-09 11:23] VITALS: BP 147/82
--- NOTE | 2019-10-09 14:25 | DS ---
DATE OF DISCHARGE: 10/09/2019 HOSPITAL COURSE: The patient is a 78-year-old female patient, who was brought by EMS with increasing confusion and dementia symptoms. The patient is currently a resident at [facility]. She had a fall last week and has a large bruise and hematoma to her left eyebrow and bruising in her left knee. She has recently been on Eliquis probably for atrial fibrillation. She was evaluated in the Emergency Room, was extensively investigated and apparently was admitted with altered mental status, head contusion, knee contusion. She dropped her H and H down to 5.6 and 16.5 and has received 2 units of packed RBCs, and her most recent hemoglobin was 11.4, hematocrit 33.8. The patient is awake, alert, but pleasantly confused, and apparently, [facility] and she remained hemodynamically stable and afebrile. Her H and H is stable. A decision was made to discharge her to [facility]. PHYSICAL EXAMINATION: GENERAL: When I saw her today, she looked pale, but no jaundice, cyanosis or thyromegaly. No jugular venous distention. No limb edema. VITAL SIGNS: Her heart rate was 77, blood pressure was 147/82, temperature was 97.5, respiratory rate was 16, and oxygen saturation was 97% on room air. HEAD, EYES, EARS, NOSE AND THROAT: Showed normocephalic except marked bruising over her left eyebrow, left side of the head and neck. NECK: Supple. CARDIAC: Normal first and second heart sounds. No gallop or murmur. CHEST: Clear to auscultation. No crepitation or rhonchi. ABDOMEN: Scaphoid, soft, nontender. NEUROLOGIC: She is demented, very confused, but without any obvious lateralizing sign. All her cranial nerves are intact. She moves extremities without difficulty, although she has severe pain in both knee joints due to advanced osteoarthritis. LABORATORY DATA: Her most recent lab work showed her white cell count was 6700, hemoglobin 11.4, hematocrit 33.8, MCV 93, and a platelet count 249,000. Her chemistry showed a serum sodium 136, potassium 3.9, chloride 100, bicarbonate 32, anion gap of 4, BUN 44, creatinine 1, estimated GFR was 53 mL per minute. Her glucose was 96, calcium was 8.5. Her total protein was 5.9, albumin 2.7. Urinalysis essentially unremarkable. DISCHARGE MEDICATIONS: She will be discharged to a halfway facility to continue on all her medications, except apixaban and aspirin. FINAL DISCHARGE DIAGNOSES: 1. Altered mental status, resolved. 2. Fall with multiple bruises involving her left eyebrow, left side of the face and neck and left knee joint, resolved. 3. Other medical problems include depressive disorder, impulse control disorder, panic disorder, agoraphobia, frequent falls and suicidal ideation. She is known to have history of hyperlipidemia, traumatic brain injury, cerebrovascular accident and brain cancer. DICTATION ENDS HERE. ALYSIA LANDEROS MD DR: LEONARDO/rm JOB#: [id number] / [id number]
== END 2019-10-09 14:45 | DRG 91 ==
LOC: ER 17:59 → 1 SOUTH 21:15 → OBSVTOIN 10-07 08:11
PROVIDERS: ADMIT Internal Medicine; ATTEND Internal Medicine
PROC: 30233N1 Transfusion of Nonautologous Red Blood Cells into Peripheral Vein, Percutaneous Approach (ICD-10-PCS; principal; 2019-10-07)
DX: G92 Toxic encephalopathy (principal); E43 Unspecified severe protein-calorie malnutrition; D62 Acute posthemorrhagic anemia; D68.9 Coagulation defect, unspecified; R45.851 Suicidal ideations; S00.10XA Contusion of unspecified eyelid and periocular area, initial encounter; Z85.841 Personal history of malignant neoplasm of brain; D63.8 Anemia in other chronic diseases classified elsewhere; E04.1 Nontoxic single thyroid nodule; E78.5 Hyperlipidemia, unspecified; F03.90 Unspecified dementia, unspecified severity, without behavioral disturbance, psychotic disturbance, mood disturbance, and anxiety; F40.01 Agoraphobia with panic disorder; F41.8 Other specified anxiety disorders; F63.9 Impulse disorder, unspecified; G93.89 Other specified disorders of brain; I10 Essential (primary) hypertension; I48.91 Unspecified atrial fibrillation; I73.9 Peripheral vascular disease, unspecified; M47.9 Spondylosis, unspecified; R29.6 Repeated falls; S00.93XA Contusion of unspecified part of head, initial encounter; S80.02XA Contusion of left knee, initial encounter; Z79.01 Long term (current) use of anticoagulants; T39.015A Adverse effect of aspirin, initial encounter; Z86.73 Personal history of transient ischemic attack (TIA), and cerebral infarction without residual deficits; W18.39XA Other fall on same level, initial encounter; Y93.89 Activity, other specified; Y92.89 Other specified places as the place of occurrence of the external cause; Y99.8 Other external cause status; Z68.21 Body mass index [BMI] 21.0-21.9, adult
CPT/HCPCS: 36415; 70450; 71045; 72125; 73562; 80048; 80053; 81001; 84484; 85025; 86850; 86900; 86901; 86920; 93005; G0378; G0379; J2060; P9016; 92610; 97530; 99285-25